=== PATIENT | female | born 1945 | race Caucasian/White ===

== ENCOUNTER 2016-08-30 10:46 | Emergency (ER) | payer OTHER ==
[~2016-08-30] VITALS: Ht 152.4 cm; Wt 120.2 kg
[~2016-08-30 10:46] MED LIST changes: -ACET-24 PO; -ALBUAER INH; -ASPEC81 PO; -CLOBETASOL TOP; -CMD1 PO; -CMD2 PO; -CRDCD120 PO; -CYNI1000 INJ; -FEXO1TAB49 PO; -FLUT0.15 NAE; -FLVHFA44 INH; -FRRS300 PO; -FURO-85 PO; -GFNSR600 PO; -HYDR5SYP11 PO; -INSDGIPEN SC; -INSU1.2I SC; -INSU1.2I SQ; -LEVO-18 PO; -LEVO175T PO; -MCRK20 PO; -METR0.754 TOP; -NVLG SQ; -POLY150C4 PO; -PRED20TA PO; -RXC5 PO; -SUCR1TAB29 PO; -TOLT4CAP PO; -TRMO115 TOP; -[UNRECOGNIZED DRUG - OTHER] PO
[2016-08-30 10:57] VITALS: TEMP 36.6; Ht 152.4 cm; Wt 120.2 kg
[2016-08-30] MEDS ORDERED: TOLT4CAP PO (11:38)
[2016-08-30] MEDS ORDERED: ASPEC81 PO (11:38)
[2016-08-30] MEDS ORDERED: CYNI1000 INJ (11:38)
[2016-08-30] MEDS ORDERED: LEVO175T PO (11:38)
[2016-08-30] MEDS ORDERED: INSDGI SC (11:38)
[2016-08-30] MEDS ORDERED: FEXO1TAB49 PO (11:38)
[2016-08-30] MEDS ORDERED: SUCR1TAB29 PO (11:38)
[2016-08-30] MEDS ORDERED: NVLG SQ (11:38)
[2016-08-30] MEDS ORDERED: POLY150C4 PO (11:38)
[2016-08-30] MEDS ORDERED: CMD2 PO (11:38)
[2016-08-30] MEDS ORDERED: FLVHFA44 INH (11:38)
[2016-08-30] MEDS ORDERED: ALBUAER INH (11:38)
[2016-08-30] MEDS ORDERED: CMD1 PO (11:38)
[2016-08-30] MEDS ORDERED: FLUT0.15 NAE (11:38)
[2016-08-30 11:47] VITALS: BP 168/90
--- NOTE | 2016-08-30 11:59 | EMERGENCY ROOM VISIT NOTE ---
History Report prepared by Jacob: Parisa Yoon Under the Supervision of: Dr. Dinesh Whatley D.O. First contact with patient: 11:42 Chief Complaint: HYPERTENSION Stated Complaint: ELEVATED BP 206/109 History of Present Illness The patient is a 71 year old female who presents to the Emergency Room with complaints of persistent elevated blood pressure that began today. She notes that her blood pressure was 206/109. The patient states that she was having a carotid artery ultrasound today. She states that while there is when they found to have an elevated blood pressure. The patient states that her blood pressure was 139/79 last evening. She denies any headaches, chest pain, or shortness of breath and notes that she felt normal today. The patient states that she called her PCP's office and was instructed to come to the emergency department for further work up. She states that she has a history of a carotid artery surgery. Source of History: patient Onset: today Position: other (global) Symptom Intensity: 206/109 Quality: other (elevated blood pressure) Timing: other (persistent) Associated Symptoms: No SOB, No chest pain, No headache Review of Systems See HPI for pertinent positives & negatives. A total of 10 systems reviewed and were otherwise negative. Past Medical & Surgical Medical Problems: (1) Asthma (2) Diabetes (3) Heart disease Surgical Problems: (1) S/P CABG (coronary artery bypass graft) Family History Heart disease Social History Smoking Status: Never Smoker Smokeless Tobacco Use: No Alcohol Use: none Marital Status: Housing Status: lives with significant other Occupation Status: retired Current/Historical Medications Scheduled Aspirin (Aspirin EC Low Dose), 81 MG PO DAILY Cyanocobalamin (Cyanocobalamin), 1,000 MCG INJ MONTHLY Ezetimibe (Zetia), 10 MG PO HS Fexofenadine Hcl (Abby Allergy), 180 MG PO DAILY Fluticasone Propionate (Flovent Hfa), Unknown Dose INH BID Insulin Aspart (Novolog), UNITS SQ AC Insulin Glargine (Lantus), 52 UNIT SC QPM Levothyroxine Sodium (Synthroid), 175 MCG PO DAILY Metoprolol Succ (Toprol Xl) (Toprol-Xl ), 100 MG PO BID Polysaccharide Iron Complex (Ferrex 150), 150 MG PO DAILY Ranitidine (Zantac), 300 MG PO HS Simvastatin (Zocor), 80 MG PO QPM Tolterodine Tartrate (Detrol La), 4 MG PO DAILY Warfarin Sod (Coumadin), 1 MG PO 6XWK Warfarin Sod (Coumadin), 2 MG PO WK Scheduled PRN Albuterol Sulfate (Proventil Hfa), 2 PUFF INH Q6 PRN for SOB/Wheezing Fluticasone Propionate (Nasal) (Flonase Allergy Relief), 1 SPRAY REBEKAH DAILY PRN for ALLERGIES Miscellaneous Medications Sucralfate (Carafate), 1 GM PO Allergies Coded Allergies: Iodine (Verified Allergy, Mild, TROUBLE BREATHING OK WITH PRE-MEDICATION , 08/30/16) Sulfa Antibiotics (Verified Allergy, Unknown, i swell up, 08/30/16) Physical Exam Vital Signs Date Time Temp Pulse Resp B/P Pulse Ox O2 Delivery O2 Flow Rate FiO2 08/30/16 11:47 168/90 08/30/16 10:57 36.6 101 18 156/76 93 Room Air Physical Exam CONSTITUTIONAL/VITAL SIGNS: Reviewed / noted above. GENERAL: Non-toxic in appearance. INTEGUMENTARY: Warm, dry, and [place]. HEAD: Normocephalic. EYES: without scleral icterus or trauma. ENT/OROPHARYNX: clear and moist. LYMPHADENOPATHY/NECK: Is supple without lymphadenopathy or meningismus. RESPIRATORY: Lungs clear and equal. CARDIOVASCULAR: Regular rate and rhythm. GI/ABDOMEN: Soft and nontender. No organomegaly or pulsatile mass. No rebound or guarding. Normal bowel sounds. EXTREMITIES: Warm and well perfused. BACK: No CVA tenderness. NEUROLOGICAL: Intact without focal deficits. PSYCHIATRIC: normal affect. MUSCULOSKELETAL: Normally developed with good muscle tone. Medical Decision & Procedures ED Course 1147: Previous medical records were reviewed. The patient was evaluated in room B8. A complete history and physical examination was performed. I rechecked the patient's blood pressure and it was normal. I discussed the treatment plan and she verbalized complete understanding and agreement. She is ready to go home. Medical Decision Differential diagnosis: Etiologies such as benign hypertension, hypertensive emergency, cardiovascular pathology, pheochromocytoma, electrolyte abnormality, renal disease, endorgan damage, as well as others were entertained. This is a 71-year-old female who presents to the ED with a chief complaint of hypertension. The patient states that she had an outpatient carotid artery ultrasound today. They checked her blood pressure and told her it was 200/100. She was sent to the ED for evaluation. The patient denies any symptoms. She states that she is feeling fine. Her initial triage blood pressure here was 156 /76. It was rechecked and appears to be stable. The patient denies having any headaches, chest pains or shortness of breath. She denies any focal weakness. After exam and evaluation, the patient is felt to be stable for discharge and outpatient follow-up and recheck of her blood pressure as an outpatient. The patient did state that she checked her own blood pressure last night at home and it was 139/79. Impression Primary Impression: Hypertension Scribe Attestation The scribe's documentation has been prepared under my direction and personally reviewed by me in its entirety. I confirm that the note above accurately reflects all work, treatment, procedures, and medical decision making performed by me. Departure Information Dispostion Home / Self-Care Referrals Chris Queen M.D. (PCP) Patient Instructions My [facility] Additional Instructions Have your blood pressure rechecked at your doctor's office or you may do so at home and notify your doctor if it is elevated. Return for any concerns.
[2016-08-30 12:15] VITALS: PULSE 73; O2SAT 94
[2017-04-30] MEDS ORDERED: INSU1.2I SQ (08:56)
[2017-04-30] MEDS ORDERED: FRRS300 PO (08:56)
[2017-04-30] MEDS ORDERED: [UNRECOGNIZED DRUG - OTHER] PO (08:56)
[2017-04-30] MEDS ORDERED: TRMO115 TOP (08:59)
[2017-04-30] MEDS ORDERED: CLOBETASOL TOP (08:59)
[2017-04-30] MEDS ORDERED: FURO-85 PO (08:59)
[2017-04-30] MEDS ORDERED: METR0.754 TOP (08:59)
[2017-05-10] MEDS ORDERED: RXC5 PO (21:36)
[2017-05-10] MEDS ORDERED: ACET-24 PO (21:36)
== END 2016-08-30 12:14 | disposition home or self-care (01) ==
LOC: C.EDB 10:47
DX: I10 Essential (primary) hypertension (principal); E11.9 Type 2 diabetes mellitus without complications; Z79.4 Long term (current) use of insulin; J45.909 Unspecified asthma, uncomplicated; Z95.1 Presence of aortocoronary bypass graft; Z82.49 Family history of ischemic heart disease and other diseases of the circulatory system; Z79.82 Long term (current) use of aspirin; Z79.01 Long term (current) use of anticoagulants; I65.29 Occlusion and stenosis of unspecified carotid artery

== ENCOUNTER → 2016-08-30 | Outpatient (CLI) | payer OTHER ==
[~2016-08-30] MED LIST: ACET-24 PO; ALBU1AER9; ALBUAER INH; ALLGUNK; ASPEC325 PO; ASPEC81 PO; CLC6 PO; CLOBETASOL TOP; CMD1 PO; CMD2 PO; CRDCD120 PO; CRF1 PO; CYAN3INJ INJ; CYNI1000 INJ; EZET10TA63 PO; FEXO1TAB49 PO; FLNIN NAE; FLUT0.15 NAE; FLVHFA44 INH; FLVHFAUNK; FRRS300 PO; FURO-85 PO; GFNSR600 PO; HYDR5SYP11 PO; INSDGI SC; INSDGIPEN SC; INSU1.2I SC; INSU1.2I SQ; LEVO-18 PO; LEVO175T PO; MCRK20 PO; METO1TAB69 PO; METR0.754 TOP; MTRUNK; NVLG SQ; NVLGI SC; POLY150C4 PO; PRED20TA PO; RXC5 PO; SIMV80TA2 PO; SUCR1TAB29 PO; SYN200 PO; TOLT4CAP PO; TRMO115 TOP; TYLUNK; ZNTT/150 PO; [UNRECOGNIZED DRUG - OTHER] PO
--- NOTE | 2016-08-30 10:46 | DIAGNOSTIC IMAGING REPORT ---
ULTRASOUND OF THE CAROTID ARTERIES CLINICAL HISTORY: Carotid artery plaque. COMPARISON STUDY: 07/23/2015. TECHNIQUE: Real-time, grayscale, and color Doppler sonography of the carotid arteries was performed. Imaging reviewed in the transverse and longitudinal planes. NASCET criteria was utilized for stenosis calcification. FINDINGS: There is minor atherosclerotic plaque present . The peak systolic velocity within the right internal carotid artery is 92 cm/sec. The systolic velocity ratio of right internal to common carotid artery is 1.2. The peak systolic velocity within the left internal carotid artery is 90 cm/sec. The systolic velocity ratio left internal to common carotid artery is 1.2. Antegrade flow is seen in the vertebral arteries. The external carotid arteries are patent. Blood pressure in the right arm measured 206 mm/Hg. Blood pressure in the left arm measured 205 mm/Hg. IMPRESSION: 1. No evidence of hemodynamically significant carotid stenosis 2. Systemic hypertension Electronically signed by: Gino Calle M.D. 08/30/2016 10:44 AM Dictated Date/Time: 08/30/2016 10:43 AM
== END | disposition home or self-care (01) ==
LOC: C.ULTR 09:28
PROVIDERS: ATTEND Surgery
DX: I65.29 Occlusion and stenosis of unspecified carotid artery (principal); I10 Essential (primary) hypertension

== ENCOUNTER → 2016-10-17 | Outpatient (CLI) | payer OTHER ==
[~2016-10-17] MED LIST changes: +ACET-24 PO; -ALBU1AER9; +ALBUAER INH; -ALLGUNK; -ASPEC325 PO; +ASPEC81 PO; -CLC6 PO; +CLOBETASOL TOP; +CMD1 PO; +CMD2 PO; +CRDCD120 PO; -CRF1 PO; -CYAN3INJ INJ; +CYNI1000 INJ; +FEXO1TAB49 PO; -FLNIN NAE; +FLUT0.15 NAE; +FLVHFA44 INH; -FLVHFAUNK; +FRRS300 PO; +FURO-85 PO; +GFNSR600 PO; +HYDR5SYP11 PO; +INSDGIPEN SC; +INSU1.2I SC; +INSU1.2I SQ; +LEVO-18 PO; +LEVO175T PO; +MCRK20 PO; +METR0.754 TOP; -MTRUNK; +NVLG SQ; -NVLGI SC; +POLY150C4 PO; +PRED20TA PO; +RXC5 PO; +SUCR1TAB29 PO; -SYN200 PO; +TOLT4CAP PO; +TRMO115 TOP; -TYLUNK; +[UNRECOGNIZED DRUG - OTHER] PO
--- NOTE | 2016-10-17 10:08 | DIAGNOSTIC IMAGING REPORT ---
CHEST 2 VIEWS ROUTINE CLINICAL HISTORY: R05 [id number] COMPARISON STUDY: No previous studies for comparison. FINDINGS: The heart is enlarged. There are postsurgical changes of a midline sternotomy. There is no failure. There is no focal pulmonary consolidation. There is an age-indeterminate left sixth rib fracture. There is no pneumothorax.[ IMPRESSION: 1. Cardiomegaly 2. Age-indeterminate left sixth rib fracture 3. No evidence of focal pulmonary consolidation. Electronically signed by: Gino Calle M.D. 10/17/2016 10:07 AM Dictated Date/Time: 10/17/2016 10:03 AM
== END | disposition home or self-care (01) ==
LOC: C.RAD 09:26
PROVIDERS: ATTEND Internal Medicine
DX: R05 Cough (principal); I51.7 Cardiomegaly

== ENCOUNTER 2016-10-23 12:33 | Inpatient (IN) | payer OTHER ==
[~2016-10-23] VITALS: Ht 152.4 cm; Wt 112.1 kg
[~2016-10-23 12:33] MED LIST changes: -ACET-24 PO; -CLOBETASOL TOP; -CRDCD120 PO; -FRRS300 PO; -FURO-85 PO; -GFNSR600 PO; -HYDR5SYP11 PO; -INSDGIPEN SC; -INSU1.2I SC; -INSU1.2I SQ; -LEVO-18 PO; -MCRK20 PO; -METR0.754 TOP; -PRED20TA PO; -RXC5 PO; -TRMO115 TOP; -[UNRECOGNIZED DRUG - OTHER] PO
[2016-10-23] MEDS ORDERED: LEVO-18 PO (13:08)
[2016-10-23] MEDS ORDERED: INSU1.2I SC (13:08)
[2016-10-23] MEDS ORDERED: PRED20TA PO (13:12)
[2016-10-23] MEDS ORDERED: HYDR5SYP11 PO (13:12)
[2016-10-23] MEDS ORDERED: METHYLPREDNISOLONE 125 MG VIAL IV STA (13:22)
[2016-10-23] MEDS ORDERED: ALBUT/IPRATROP 3MG/0.5MG NEB 3 ML VIAL INH STA (13:22)
[2016-10-23 13:32] LABS: BASO ABS # 0.01 K/uL (0-0.2); EOS % 0.6 %; HEMATOCRIT 31.6 % (37-47); IG% 0.6 %; LYMPH % 20.6 %; MEAN CELL VOLUME 67.5 fL (80-100); MEAN CORPUSCULAR HEMOGLOBIN 19.7 pg (25-34); MEAN CORPUSCULAR HGB CONC 29.1 g/dl (32-36); MEAN PLATELET VOLUME 9.3 fL (7.4-10.4); MONO % 10.1 %; NEUT % 68.1 %; PLATELET COUNT 310 K/uL (130-400); RED BLOOD COUNT 4.68 M/uL (4.2-5.4); WHITE BLOOD COUNT 20.88 K/uL (4.8-10.8)
--- NOTE | 2016-10-23 13:42 | DIAGNOSTIC IMAGING REPORT ---
CHEST ONE VIEW PORTABLE CLINICAL HISTORY: EVALUATE RESPIRATORY DISTRESS. DYSPNEA dyspnea COMPARISON STUDY: 10/17/2016 FINDINGS: Mild cardiomegaly. Prior median sternotomy. Prominent pulmonary vasculature. IMPRESSION: Early congestive failure Electronically signed by: Reggie Álvarez M.D. 10/23/2016 1:41 PM Dictated Date/Time: 10/23/2016 1:40 PM
[2016-10-23 13:45] LABS: INR 1.5 (0.9-1.1); PARTIAL THROMBOPLASTIN RATIO 0.9; PROTHROMBIN TIME (PATIENT) 16.1 SECONDS (9.0-12.0)
[2016-10-23 13:56] LABS: ALT/SGPT 35 U/L (12-78); BLOOD UREA NITROGEN 13 mg/dl (7-18); BUN/CREATININE RATIO 24.4 (10-20); CALCIUM 8.6 mg/dl (8.5-10.1); CARBON DIOXIDE 29 mmol/L (21-32); CHLORIDE 108 mmol/L (98-107); CREATININE 0.52 mg/dl (0.60-1.20); GLUCOSE 62 mg/dl (70-99); POTASSIUM 3.5 mmol/L (3.5-5.1); SODIUM 144 mmol/L (136-145)
[2016-10-23 14:01] LABS: ALB/GLOB RATIO 0.8 (0.9-2); ALKALINE PHOSPHATASE 71 U/L (45-117); AST/SGOT 29 U/L (15-37); CKMB/CK RATIO 1.6 (0-3.0)
[2016-10-23 14:20] LABS: ANISOCYTOSIS PRESENT; COMPLETE YES; HYPOCHROMIA PRESENT; MICROCYTOSIS PRESENT; POIKILOCYTOSIS PRESENT; TARGET CELLS 1+
[2016-10-23] MEDS ORDERED: FLUTICASONE PROPIONATE NA SPR 16 GM BTL NAE PRN (16:15)
[2016-10-23] MEDS ORDERED: GLUCOSE 10 TABS/TUBE PO PRN (16:15)
[2016-10-23] MEDS ORDERED: NITROGLYCERIN 0.4 MG SL PER TAB CHARGE SL PRN (16:15)
[2016-10-23] MEDS ORDERED: LEVALBUTEROL/IPRATROPIUM NEB INH PRN (16:15)
[2016-10-23] MEDS ORDERED: DEXTROSE 50% 50 ML SYR IV PRN (16:15)
[2016-10-23] MEDS ORDERED: ACETAMINOPHEN 325 MG TAB PO PRN (16:15)
[2016-10-23] MEDS ORDERED: ZOLPIDEM TARTRATE 5 MG TAB PO PRN (16:15)
[2016-10-23] MEDS ORDERED: GLUCAGON FOR INJ 1 MG VIAL SQ PRN (16:15)
[2016-10-23] MEDS ORDERED: ONDANSETRON INJ 2 MG/ML 2 ML VIAL IV PRN (16:15)
[2016-10-23] MEDS ORDERED: GLUCOSE 40% GEL 15 GM TUBE PO PRN (16:15)
[2016-10-23] MEDS ORDERED: HYDROCODONE/HOMATROPINE SYRUP 5MG/1.5MG 5ML UDP PO PRN (16:15)
[2016-10-23] MEDS ORDERED: POTASSIUM CHLORIDE 10 MEQ TABCR PO STA (16:24)
[2016-10-23 16:54] VITALS: O2SAT 96; BMI 52.3
[2016-10-23 17:02] LABS: URINE APPEARANCE CLEAR (CLEAR); URINE BILIRUBIN NEG (NEG); URINE COLOR YELLOW; URINE NITRITE NEG (NEG); URINE SPECIFIC GRAVITY 1.013 (1.000-1.030); UROBILINOGEN POS (NEG)
[2016-10-23 17:06] LABS: MANUAL MICROSCOPIC REQUIRED? NO; REVIEW REQ? NO
[2016-10-23] MEDS ORDERED: LEVALBUTEROL 1.25MG/0.5ML NEB INH PRN (18:15)
[2016-10-23] MEDS ORDERED: IPRATROPIUM BROMIDE NEB SOLN 0.02% 2.5 ML VIAL INH PRN (18:15)
[2016-10-23 18:47] VITALS: BP 164/88; PULSE 102; O2SAT 95
[2016-10-23] MEDS ORDERED: ALBUMIN 25% 50 ML with FUROSEMIDE INJ 40 MG IV ONE ×2 (19:00)
[2016-10-23 19:27] VITALS: BP 181/109; PULSE 107; TEMP 37.2; O2SAT 92
[2016-10-23] MEDS: WARFARIN SOD 2 MG TAB PO SCH (20:03)
[2016-10-23] MEDS: RANITIDINE HCL 150 MG TAB PO SCH (20:04)
[2016-10-23] MEDS: SIMVASTATIN 80 MG TAB PO SCH (20:04)
[2016-10-23] MEDS: POTASSIUM CHLORIDE 10 MEQ TABCR PO SCH (20:05)
[2016-10-23] MEDS: EZETIMIBE 10MG TAB PO SCH (20:05)
[2016-10-23] MEDS: METOPROLOL SUCC 50MG EXT REL TAB PO SCH (20:09)
[2016-10-23] MEDS: INSULIN ASPART 100 UNITS/ML 3 ML PEN SC SCH (20:13)
[2016-10-23] MEDS: INSULIN GLARGINE SOLOSTAR 100 UNITS/ML 3 ML PEN SC SCH (20:14)
[2016-10-23] MEDS ORDERED: NURSING VERBAL MED ORDER ONE (20:45)
[2016-10-23] MEDS ORDERED: SUCRALFATE 1 GM TAB PO PRN (21:00)
[2016-10-23 21:15] VITALS: BP 161/97
--- NOTE | 2016-10-23 21:19 | EMERGENCY ROOM VISIT NOTE ---
History Report prepared by Jacob: Barbara Paetl Under the Supervision of: Dr. Carter Kuhn M.D. First contact with patient: 13:11 Chief Complaint: RESPIRATORY PROBLEMS Stated Complaint: BREATHING PROBLEMS, COUGHING, SWELLED LEGS Nursing Triage Summary: Patients states has had cold symptoms for the last 3 weeks, took antibiotics with only a little relief. Patient states productive cough with clear sputum. Denies nasal congestion, N/V/D. Patient states noticed BLE swelling Sunday of last week. Ecchymotic area noted to patients LLQ abdomen. History of Present Illness The patient is a 71 year old female who presents to the Emergency Room with complaints of worsening cold-like symptoms that began 3 weeks ago. The patient states that she has chest congestion, a productive cough, and bilateral foot swelling. The swelling in her lower legs that began about 4 days ago. She has never had leg swelling in the past. She is not on fluid pills. Currently she also complains of a large bruise to the left side of her abdomen that has been worsening. She is on Coumadin - her most recent INR was 2.2. She has been to her PCP a few times regarding her symptoms. The patient had a chest x-ray in Dr. Queen's office 6 days ago. She notes that she has been on antibiotics, Prednisone, and cough syrup with codeine. She felt that the Prednisone along with her inhaler and nebulizer treatments have helped her symptoms somewhat. Past medical history includes asthma, a-fib, heart disease. She has a history of a double bypass. Pt denies LOC, headache, fevers, chills, diaphoresis, visual changes, neck pain, nausea, vomiting, abdominal pain, back pain, melena, hematochezia, urinary symptoms, numbness, weakness, lymphadenopathy, rash, or other complaints. Source of History: patient Onset: 3 weeks ago Position: other (global) Quality: other (cold-like symptoms) Timing: worsening Associated Symptoms: + cough Note: Other symptoms: chest congestion, leg swelling, bruise to left flank/abdomen Review of Systems See HPI for pertinent positives and negatives. A total of ten systems were reviewed and were otherwise negative. Past Medical & Surgical Medical Problems: (1) Asthma (2) Atrial fibrillation (3) CHF exacerbation (4) Diabetes (5) Heart disease Surgical Problems: (1) H/O percutaneous transluminal coronary angioplasty (2) S/P CABG (coronary artery bypass graft) (3) S/P CABG (coronary artery bypass graft) Family History Heart disease Social History Smoking Status: Never Smoker Alcohol Use: none Marital Status: Housing Status: lives with significant other Occupation Status: retired Current/Historical Medications Scheduled Aspirin (Aspirin EC Low Dose), 81 MG PO DAILY Cyanocobalamin (Cyanocobalamin), 1,000 MCG INJ MONTHLY Ezetimibe (Zetia), 10 MG PO HS Fexofenadine Hcl (Abby Allergy), 180 MG PO DAILY Fluticasone Propionate (Flovent Hfa), Unknown Dose INH BID Hydrocodone W/ Homatropine (Hycodan 5/1.5MG 5 Ml), 5 ML PO Q4H Insulin Aspart (Novolog), UNITS SQ AC Insulin Glargine (Toujeo Solostar), 42 UNITS SC QPM Levofloxacin (Levaquin), 750 MG PO DAILY Levothyroxine Sodium (Synthroid), 175 MCG PO DAILY Metoprolol Succ (Toprol Xl) (Toprol-Xl ), 100 MG PO BID Polysaccharide Iron Complex (Ferrex 150), 150 MG PO DAILY Prednisone (Prednisone), 20 MG PO UD Ranitidine (Zantac), 300 MG PO HS Simvastatin (Zocor), 80 MG PO QPM Sucralfate (Carafate), 1 GM PO PRN Tolterodine Tartrate (Detrol La), 4 MG PO DAILY Warfarin Sod (Coumadin), 1 MG PO 6XWK Warfarin Sod (Coumadin), 2 MG PO WK Scheduled PRN Albuterol Sulfate (Proventil Hfa), 2 PUFF INH Q6 PRN for SOB/Wheezing Fluticasone Propionate (Nasal) (Flonase Allergy Relief), 1 SPRAY REBEKAH DAILY PRN for ALLERGIES Allergies Coded Allergies: Iodine (Verified Allergy, Mild, TROUBLE BREATHING OK WITH PRE-MEDICATION , 08/30/16) Sulfa Antibiotics (Verified Allergy, Unknown, i swell up, 08/30/16) Physical Exam Vital Signs Date Time Temp Pulse Resp B/P Pulse Ox O2 Delivery O2 Flow Rate FiO2 10/23/16 14:35 93 22 156/89 96 Room Air 10/23/16 14:06 96 Room Air 10/23/16 12:54 96 10/23/16 12:51 96 Room Air 10/23/16 12:43 96 Room Air 10/23/16 12:35 36.7 76 22 139/75 98 Physical Exam GENERAL: Awake, alert, tired-appearing, in no distress, hoarse voice. HENT: Normocephalic, atraumatic. Oropharynx unremarkable. EYES: Normal conjunctiva. Sclera non-icteric. NECK: Supple. No nuchal rigidity. FROM. No JVD. RESPIRATORY: Clear to auscultation. CARDIAC: Regular rate, irregular rhythm. Extremities warm and well perfused. Pulses equal. ABDOMEN: Soft, non-distended. No tenderness to palpation. No rebound or guarding. No masses. RECTAL: Deferred. MUSCULOSKELETAL: Chest examination reveals no tenderness. The back is symmetrical on inspection without obvious abnormality. There is no CVA tenderness to palpation. No joint edema. LOWER EXTREMITIES: Calves are equal size bilaterally and non-tender. 2-3+ lower extremity pitting edema. No discoloration. NEURO: Normal sensorium. No sensory or motor deficits noted. SKIN: No rash or jaundice noted. Large area of bruising on the left flank and across the lower abdomen. Medical Decision & Procedures ER Provider Diagnostic Interpretation: Radiology results as stated below per my review and radiologist interpretation: CHEST ONE VIEW PORTABLE CLINICAL HISTORY: EVALUATE RESPIRATORY DISTRESS. DYSPNEA dyspnea COMPARISON STUDY: 10/17/2016 FINDINGS: Mild cardiomegaly. Prior median sternotomy. Prominent pulmonary vasculature. IMPRESSION: Early congestive failure Electronically signed by: Reggie Álvarez M.D. 10/23/2016 1:41 PM Dictated Date/Time: 10/23/2016 1:40 PM Laboratory Results 10/23/16 13:22 Red Blood Count 4.68, Mean Corpuscular Volume 67.5, Mean Corpuscular Hemoglobin 19.7, Mean Corpuscular Hemoglobin Concent 29.1, Mean Platelet Volume 9.3, Neutrophils (%) (Auto) 68.1, Lymphocytes (%) (Auto) 20.6, Monocytes (%) (Auto) 10.1, Eosinophils (%) (Auto) 0.6, Basophils (%) (Auto) 0.0, Neutrophils # (Auto ) 14.23, Lymphocytes # (Auto) 4.30, Monocytes # (Auto) 2.10, Eosinophils # (Auto ) 0.12, Basophils # (Auto) 0.01 10/23/16 13:22 Test 10/23/16 13:22 White Blood Count 20.88 K/uL (4.8-10.8) Red Blood Count 4.68 M/uL (4.2-5.4) Hemoglobin 9.2 g/dL (12.0-16.0) Hematocrit 31.6 % (37-47) Mean Corpuscular Volume 67.5 fL (80-100) Mean Corpuscular Hemoglobin 19.7 pg (25-34) Mean Corpuscular Hemoglobin Concent 29.1 g/dl (32-36) Platelet Count 310 K/uL (130-400) Mean Platelet Volume 9.3 fL (7.4-10.4) Neutrophils (%) (Auto) 68.1 % Lymphocytes (%) (Auto) 20.6 % Monocytes (%) (Auto) 10.1 % Eosinophils (%) (Auto) 0.6 % Basophils (%) (Auto) 0.0 % Neutrophils # (Auto) 14.23 K/uL (1.4-6.5) Lymphocytes # (Auto) 4.30 K/uL (1.2-3.4) Monocytes # (Auto) 2.10 K/uL (0.11-0.59) Eosinophils # (Auto) 0.12 K/uL (0-0.5) Basophils # (Auto) 0.01 K/uL (0-0.2) RDW Standard Deviation 53.6 fL (36.4-46.3) RDW Coefficient of Variation 22.5 % (11.5-14.5) Immature Granulocyte % (Auto) 0.6 % Immature Granulocyte # (Auto) 0.12 K/uL (0.00-0.02) Nucleated RBC Absolute Count (auto) 0.14 K/uL (0-0) Nucleated Red Blood Cells % 0.7 % Hypochromasia PRESENT Poikilocytosis PRESENT Anisocytosis PRESENT Microcytosis PRESENT Target Cells 1+ Prothrombin Time 16.1 SECONDS (9.0-12.0) Prothromb Time International Ratio 1.5 (0.9-1.1) Activated Partial Thromboplast Time 24.0 SECONDS (21.0-31.0) Partial Thromboplastin Ratio 0.9 Anion Gap 7.0 mmol/L (3-11) Est Creatinine Clear Calc Drug Dose 119.2 ml/min Estimated GFR () 112.2 Estimated GFR (Non- 96.8 BUN/Creatinine Ratio 24.4 (10-20) Calcium Level 8.6 mg/dl (8.5-10.1) Total Bilirubin 1.0 mg/dl (0.2-1) Aspartate Amino Transf (AST/SGOT) 29 U/L (15-37) Alanine Aminotransferase (ALT/SGPT) 35 U/L (12-78) Alkaline Phosphatase 71 U/L (45-117) Total Creatine Kinase 62 U/L (26-192) Creatine Kinase MB 1.0 ng/ml (0.5-3.6) Creatine Kinase MB Ratio 1.6 (0-3.0) Troponin I < 0.015 ng/ml (0-0.045) Pro-B-Type Natriuretic Peptide 1065 pg/ml (0-900) Total Protein 5.6 gm/dl (6.4-8.2) Albumin 2.5 gm/dl (3.4-5.0) Globulin 3.1 gm/dl (2.5-4.0) Albumin/Globulin Ratio 0.8 (0.9-2) Hepatitis C Antibody Screen NEG (NEG) Laboratory results reviewed by me Medications Administered Medications (Trade) Dose Ordered Sig/Jonathon Route Start Time Stop Time Status Last Admin Dose Admin Albuterol/ Ipratropium (Duoneb) 3 ml NOW STAT INH 10/23/16 13:22 10/23/16 13:24 DC 10/23/16 14:04 3 ML Methylprednisolone Sodium Succinate (Solu-Medrol IV) 125 mg NOW STAT IV 10/23/16 13:22 10/23/16 13:24 DC 10/23/16 14:04 125 MG Potassium Chloride (Klor-Con M10) 40 meq NOW STAT PO 10/23/16 16:24 10/23/16 16:59 DC 10/23/16 17:55 40 MEQ ECG Indication: other (chest congestion) Rate (beats per minute): 88 Rhythm: atrial fibrillation Findings: nonspecific-ST abn, RBBB (incomplete), no acute ischemic change Comparison ECG Date: no prior available ED Course 1319: The patient was evaluated in room B6. A complete history and physical exam was performed. 1322: Ordered Methylprednisolone Sodium Succinate 125 mg IV, DuoNeb 3 ml INH. 1525: Upon reexamination, the patient was feeling better. I discussed the test results and treatment plan with her. The patient will be evaluated for further management. 1549: I discussed the case with Dr. Jaylyn ROSADO Hospitalist. The patient will be evaluated for further management. 1600: Ordered Furosemide 40 mg/Albumin Human 54 ml @ 54 mls/hr IV. Medical Decision Prior records/ancillary studies reviewed. Triage Nursing notes reviewed and agree them. Additional history obtained from the family. The patient's history was concerning for shortness of breath. Differential diagnosis: Etiologies such as Pneumonia, COPD, reactive airway disease, CHF, cardiac ischemia, pulmonary embolism, pneumothorax, musculoskeletal, infections, gastrointestinal, as well as others were entertained. Physical examination: As above. ER treatment provided: Solu-Medrol DuoNeb On reassessment the patient felt somewhat better. Diagnostic interpretation by me: The electrocardiogram was negative for pathologic change. The labs revealed a moderate leukocytosis on CBC. The patient is currently on prednisone. She had an elevated BNP concerning for CHF. Catheter panel is unremarkable. Troponin negative. Imaging studies: Chest x-ray as above. Concerning for CHF. The patient has had upper respiratory symptoms but appears that she now has new- onset CHF. This will need further evaluation and management in the hospital. Consultation: A consultation was placed with the hospitalist. The case was discussed and diagnostics were reviewed. The patient was evaluated in the ER for further treatment. The chart was completed utilizing [employer] Speech voice recognition software. Grammatical errors, random word insertions, pronoun errors, and incomplete sentences are an occasional consequence of this system due to software limitations, ambient noise, and hardware issues. Any formal questions or concerns about the content, text, or information contained within the body of this dictation should be directly addressed to the physician for clarification. Consults Time Called: 1528 Consulting Physician: Dr. Jaylyn ROSADO Hospitalist Returned Call: 1549 I discussed the case with him. The patient will be evaluated for further management. Impression Primary Impression: Acute CHF Additional Impression: Cough Scribe Attestation The scribe's documentation has been prepared under my direction and personally reviewed by me in its entirety. I confirm that the note above accurately reflects all work, treatment, procedures, and medical decision making performed by me. Departure Information Dispostion Being Evaluated By Hospitalist Referrals Chris Queen M.D. (PCP) Patient Instructions My [facility] Problem Qualifiers
--- NOTE | 2016-10-23 22:45 | History and Physical ---
History & Physical Date & Time of Service: Oct 23, 2016 at 22:29 Chief Complaint: Atrial Fibrillation, Chf Exacerbation Primary Care Physician: Chris Queen M.D. History of Present Illness Source: patient, spouse The patient is a 71-year-old female presents emergency department with worsening swelling of bilateral lower extremities with past 4 days. Her symptoms initially began about 3 weeks ago when she had what she thought was a cold, with chest congestion, productive cough and some foot swelling at that time. She's never had leg swelling until now. She was initially treated with antibiotics, prednisone, and inhaler, nebulizer treatments and a cough syrup with codeine. Past Medical/Surgical History Medical Problems: (1) Asthma Status: Chronic (2) Atrial fibrillation Status: Chronic (3) Diabetes Status: Chronic (4) Heart disease Status: Chronic Surgical Problems: (1) H/O percutaneous transluminal coronary angioplasty Status: Resolved (2) S/P CABG (coronary artery bypass graft) Status: Resolved (3) S/P CABG (coronary artery bypass graft) Status: Resolved Family History Heart disease Social History Smoking Status: Never Smoker Smokeless Tobacco Use: No Alcohol Use: none Drug Use: none Marital Status: Housing status: lives with family Occupational Status: retired Immunizations History of Influenza Vaccine: Yes Influenza Vaccine Date: Apr 24, 2011 History of Tetanus Vaccine?: Yes Tetanus Immunization Date: Aug 24, 2009 History of Pneumococcal: Yes Pneumococcal Date: Apr 24, 2010 History of Hepatitis B Vaccine: No Multi-Drug Resistant Organisms History of MDRO: No Allergies Coded Allergies: Iodine (Verified Allergy, Mild, TROUBLE BREATHING OK WITH PRE-MEDICATION , 08/30/16) Sulfa Antibiotics (Verified Allergy, Unknown, i swell up, 08/30/16) Home Medications Scheduled Aspirin (Aspirin EC Low Dose), 81 MG PO DAILY Cyanocobalamin (Cyanocobalamin), 1,000 MCG INJ MONTHLY Ezetimibe (Zetia), 10 MG PO HS Fexofenadine Hcl (Abby Allergy), 180 MG PO DAILY Fluticasone Propionate (Flovent Hfa), Unknown Dose INH BID Hydrocodone W/ Homatropine (Hycodan 5/1.5MG 5 Ml), 5 ML PO Q4H Insulin Aspart (Novolog), UNITS SQ AC Insulin Glargine (Toujeo Solostar), 42 UNITS SC QPM Levofloxacin (Levaquin), 750 MG PO DAILY Levothyroxine Sodium (Synthroid), 175 MCG PO DAILY Metoprolol Succ (Toprol Xl) (Toprol-Xl ), 100 MG PO BID Polysaccharide Iron Complex (Ferrex 150), 150 MG PO DAILY Prednisone (Prednisone), 20 MG PO UD Ranitidine (Zantac), 300 MG PO HS Simvastatin (Zocor), 80 MG PO QPM Sucralfate (Carafate), 1 GM PO PRN Tolterodine Tartrate (Detrol La), 4 MG PO DAILY Warfarin Sod (Coumadin), 1 MG PO 6XWK Warfarin Sod (Coumadin), 2 MG PO WK Scheduled PRN Albuterol Sulfate (Proventil Hfa), 2 PUFF INH Q6 PRN for SOB/Wheezing Fluticasone Propionate (Nasal) (Flonase Allergy Relief), 1 SPRAY REBEKAH DAILY PRN for ALLERGIES Review of Systems The patient denies vision change, hearing change, sore throat, fevers, chills, sweats, weight change, fatigue, nausea, vomiting, abdominal pain, pelvic pain, blood in urine or stool, dysuria, urinary frequency or urgency, lightheadedness , dizziness, headache, memory loss, rash, abnormal bruising or bleeding, imbalance, focal or generalized weakness, arthralgias or myalgias, back or neck pain, night sweats. The review of systems is otherwise negative other than for that already noted above, and at least 10 systems have been reviewed. Physical Exam Vital Signs Date Time Temp Pulse Resp B/P Pulse Ox O2 Delivery O2 Flow Rate FiO2 10/23/16 21:15 161/97 10/23/16 19:27 37.2 107 24 181/109 92 Room Air 10/23/16 18:47 102 21 164/88 95 Room Air 10/23/16 18:00 95 19 118/82 95 10/23/16 16:54 96 Room Air 10/23/16 16:52 106 10/23/16 16:46 104 19 145/72 96 Room Air 10/23/16 14:35 93 22 156/89 96 Room Air 10/23/16 14:06 96 Room Air 10/23/16 12:54 96 10/23/16 12:51 96 Room Air 10/23/16 12:43 96 Room Air 10/23/16 12:35 36.7 76 22 139/75 98 The patient is awake, well-developed and adequately nourished, alert and oriented 3, normocephalic and atraumatic, lying in bed and in no acute distress. HEENT--PERRL, EOMI, mucous membranes and oropharynx dry. Neck--supple, no JVD or bruits, thyroid normal, trachea midline, no adenopathy. Heart--normal S1 and S2, no extra beats, no murmurs, rubs or gallops. Lungs--crackles at the bases bilaterally, no respiratory distress, no accessory muscle use. Abdomen--normal bowel sounds and soft, nontender and nondistended, no hernias or masses, no organomegaly. Extremities--no cyanosis, clubbing. There is bilaterally 2+ pitting Edema. There are good distal pulses b/l. Dermatologic--normal skin turgor, normal color, warm and dry, no abnormal lymph nodes, no rash. Neurologic--cranial nerves II through XII grossly intact, motor and sensory examination normal. Rheumatologic--normal range of motion, nontender, muscles and joints. Psychiatric--normal affect. Diagnostics Laboratory Results Results Past 24 Hours Test 10/23/16 13:22 10/23/16 14:27 10/23/16 14:47 10/23/16 16:42 Range/Units White Blood Count 20.88 4.8-10.8 K/uL Red Blood Count 4.68 4.2-5.4 M/uL Hemoglobin 9.2 12.0-16.0 g/dL Hematocrit 31.6 37-47 % Mean Corpuscular Volume 67.5 80-100 fL Mean Corpuscular Hemoglobin 19.7 25-34 pg Mean Corpuscular Hemoglobin Concent 29.1 32-36 g/dl Platelet Count 310 130-400 K/uL Mean Platelet Volume 9.3 7.4-10.4 fL Neutrophils (%) (Auto) 68.1 % Lymphocytes (%) (Auto) 20.6 % Monocytes (%) (Auto) 10.1 % Eosinophils (%) (Auto) 0.6 % Basophils (%) (Auto) 0.0 % Neutrophils # (Auto) 14.23 1.4-6.5 K/uL Lymphocytes # (Auto) 4.30 1.2-3.4 K/uL Monocytes # (Auto) 2.10 0.11-0.59 K/uL Eosinophils # (Auto) 0.12 0-0.5 K/uL Basophils # (Auto) 0.01 0-0.2 K/uL RDW Standard Deviation 53.6 36.4-46.3 fL RDW Coefficient of Variation 22.5 11.5-14.5 % Immature Granulocyte % (Auto) 0.6 % Immature Granulocyte # (Auto) 0.12 0.00-0.02 K/uL Nucleated RBC Absolute Count (auto) 0.14 0-0 K/uL Nucleated Red Blood Cells % 0.7 % Hypochromasia PRESENT Poikilocytosis PRESENT Anisocytosis PRESENT Microcytosis PRESENT Target Cells 1+ Prothrombin Time 16.1 9.0-12.0 SECONDS Prothromb Time International Ratio 1.5 0.9-1.1 Activated Partial Thromboplast Time 24.0 21.0-31.0 SECONDS Partial Thromboplastin Ratio 0.9 Sodium Level 144 136-145 mmol/L Potassium Level 3.5 3.5-5.1 mmol/L Chloride Level 108 98-107 mmol/L Carbon Dioxide Level 29 21-32 mmol/L Anion Gap 7.0 3-11 mmol/L Blood Urea Nitrogen 13 7-18 mg/dl Creatinine 0.52 0.60-1.20 mg/dl Est Creatinine Clear Calc Drug Dose 119.2 ml/min Estimated GFR () 112.2 Estimated GFR (Non- 96.8 BUN/Creatinine Ratio 24.4 10-20 Random Glucose 62 70-99 mg/dl Calcium Level 8.6 8.5-10.1 mg/dl Total Bilirubin 1.0 0.2-1 mg/dl Aspartate Amino Transf (AST/SGOT) 29 15-37 U/L Alanine Aminotransferase (ALT/SGPT) 35 12-78 U/L Alkaline Phosphatase 71 45-117 U/L Total Creatine Kinase 62 26-192 U/L Creatine Kinase MB 1.0 0.5-3.6 ng/ml Creatine Kinase MB Ratio 1.6 0-3.0 Troponin I < 0.015 0-0.045 ng/ml Pro-B-Type Natriuretic Peptide 1065 0-900 pg/ml Total Protein 5.6 6.4-8.2 gm/dl Albumin 2.5 3.4-5.0 gm/dl Globulin 3.1 2.5-4.0 gm/dl Albumin/Globulin Ratio 0.8 0.9-2 Hepatitis C Antibody Screen NEG NEG Bedside Glucose 63 70 70-90 mg/dl Urine Color YELLOW Urine Appearance CLEAR CLEAR Urine pH 8.0 4.5-7.5 Urine Specific [place] 1.013 1.000-1.030 Urine Protein NEG NEG Urine Glucose (UA) 1+ NEG Urine Ketones NEG NEG Urine Occult Blood NEG NEG Urine Nitrite NEG NEG Urine Bilirubin NEG NEG Urine Urobilinogen POS NEG Urine Leukocyte Esterase NEG NEG Test 10/23/16 18:34 10/23/16 20:11 Range/Units Bedside Glucose 313 329 70-90 mg/dl Diagnostic Radiology Patient Name: KENJI REESE Unit Number: [id number] Dictated: 10/23/16 134 Transcribed: 10/23/16 1340 MS Printed Date/Time: [~ rep prt dt]/[~ rep prt tm] [~ rep ct labl] - [~ rep ct ivnm] [facility] [place] [address] Dictated: 10/23/16 134 Transcribed: 10/23/16 1340 MS Printed Date/Time: [~ rep prt dt]/[~ rep prt tm] [~ rep ct labl] - [~ rep ct ivnm] CLINICAL HISTORY: EVALUATE RESPIRATORY DISTRESS. DYSPNEA dyspnea COMPARISON STUDY: 10/17/2016 FINDINGS: Mild cardiomegaly. Prior median sternotomy. Prominent pulmonary vasculature. IMPRESSION: Early congestive failure Electronically signed by: Reggie Álvarez M.D. 10/23/2016 1:41 PM Dictated Date/Time: 10/23/2016 1:40 PM The status of this report is Signed. Draft = Not yet reviewed or approved by Radiologist. Signed = Reviewed and approved by Radiologist. <AttendingPhy></AttendingPhy> <FamilyPhy>Chris Queen M.D.</FamilyPhy> < PrimaryPhy>Chris Queen M.D.</PrimaryPhy> <UnitNumber>[id number]</UnitNumber > <VisitNumber>[id number]</VisitNumber> <PatientName>KENJI REESE</PatientName > <DateOfBirth>1945</DateOfBirth> <Location>[facility]</Location> <ServiceDate> 10/23/16</ServiceDate> <MNE>TERESANDReina</MNE> <OrderingPhy>Carter Kuhn MD</ OrderingPhy> <OrderingPhyMNE>f rep ord dr barlow</OrderingPhyMNE> <DictatingPhyMNE> f rep dict dr barlow</DictatingPhyMNE> <CCListMNE>f rep ct cain</CCListMNE> < AdmittingPhyMNE>f pt admit dr barlow</AdmittingPhyMNE> <AttendingPhyMNE>f pt attend dr barlow</AttendingPhyMNE> <ConsultingPhyMNE>f pt consult dr barlow</ConsultingPhyMNE> <FamilyPhyMNE>f pt fam dr barlow</FamilyPhyMNE> <OtherPhyMNE>f pt other dr barlow</OtherPhyMNE> < PrimaryPhyMNE>f pt prim care dr barlow</PrimaryPhyMNE> <ReferringPhyMNE>f pt referring dr barlow</ReferringPhyMNE> EKG EKG shows atrial fibrillation at 88 bpm, incomplete right bundle branch block, T -wave inversion in lead III. Impression Assessment and Plan CHF exacerbation/rate control of atrial fibrillation/T-wave inversion in lead III/chronic anticoagulation with warfarin with subtherapeutic INR 1.5--patient be admitted to the telemetry unit, for serial cardiac enzymes, cardiac rhythm monitoring and a 2-D echocardiogram with Dopplers. We'll give albumin 25 g with Lasix 40 mg IV 1 dose now and then every 6 hours for 4 additional doses. Continue aspirin 81 mg by mouth daily metoprolol succinate 100 mg by mouth twice a day and increase warfarin from 1 mg 6 days per week and 2 mg 1 to wake to 2 mg daily. Follow serial BMP, magnesium and PT PTT. Asthma/allergy--continue Hycodan syrup 5 ML's by mouth every 4 hours when necessary, fexofenadine 180 mg by mouth daily. Hold Flovent HFA 2 puffs twice a day. Diabetes mellitus--she was recently changed to Toujeo which she does not like as well and would like to change back to Lantus. We'll therefore resume Lantus at her previous dosing 52 units subcutaneous every afternoon, and place on Accu- Cheks before meals and at bedtime with NovoLog coverage. Hypercholesterolemia-- continue Zetia 10 mg by mouth at bedtime and simvastatin 80 mg by mouth every afternoon. Hypothyroidism-- continue levothyroxine sodium at 175 g by mouth daily. GERD--continue Carafate 1 g by mouth when necessary, and ranitidine 300 mg by mouth at bedtime. Bladder spasm--continue Detrol LA 4 mg by mouth daily. Level of Care Telemetry Advanced Directives Existing Advance Directive: No Existing Living Will: No Existing Power of Medical Office Technologist: No Resuscitation Status FULL RESUSCITATION VTE Prophylaxis VTE Risk Assessment Done? Y/N: Yes Risk Level: Moderate Given or contraindicated: Warfarin (Coumadin)
[2016-10-24 00:28] VITALS: BP 133/72; PULSE 101; TEMP 37.1; O2SAT 95
[2016-10-24] MEDS ORDERED: ALBUMIN 25% 50 ML with FUROSEMIDE INJ 40 MG IV SCH ×2 (01:00)
[2016-10-24 01:53] LABS: CKMB/CK RATIO 1.2 (0-3.0)
[2016-10-24 05:00] VITALS: BP 119/67; PULSE 93; TEMP 37.1; O2SAT 95
[2016-10-24] MEDS: LEVOTHYROXINE 175 MCG TAB PO SCH (05:22)
[2016-10-24] MEDS: INSULIN ASPART 100 UNITS/ML 3 ML PEN SC SCH ×4 (07:00→21:23)
[2016-10-24] MEDS ORDERED: PERFLUTREN LIPID MICROSPHERE (DEFINITY) IV ONE (07:07)
[2016-10-24 07:34] VITALS: BP 125/83; PULSE 93; TEMP 37.3; O2SAT 95
[2016-10-24] MEDS: POTASSIUM CHLORIDE 10 MEQ TABCR PO SCH ×2 (08:06→20:31)
[2016-10-24] MEDS: METOPROLOL SUCC 50MG EXT REL TAB PO SCH ×2 (08:06→20:31)
[2016-10-24] MEDS: TOLTERODINE TARTRATE LA 4 MG CAPCR PO SCH (08:07)
[2016-10-24] MEDS: ASPIRIN 81 MG ECTAB PO SCH (08:07)
[2016-10-24] MEDS: FEXOFENADINE HCL 180 MG TAB PO SCH (08:08)
[2016-10-24 08:16] LABS: BASO ABS # 0.01 K/uL (0-0.2); EOS % 0.1 %; HEMATOCRIT 30.9 % (37-47); IG% 0.4 %; LYMPH % 15.6 %; LYMPH ABS # 3.32 K/uL (1.2-3.4); MEAN CORPUSCULAR HEMOGLOBIN 20.2 pg (25-34); MEAN CORPUSCULAR HGB CONC 30.1 g/dl (32-36); MEAN PLATELET VOLUME 9.1 fL (7.4-10.4); MONO % 10.3 %; NEUT % 73.6 %; PLATELET COUNT 290 K/uL (130-400); RED BLOOD COUNT 4.61 M/uL (4.2-5.4); WHITE BLOOD COUNT 21.22 K/uL (4.8-10.8)
[2016-10-24 08:38] LABS: INR 1.6 (0.9-1.1); PROTHROMBIN TIME (PATIENT) 17.8 SECONDS (9.0-12.0)
[2016-10-24 08:50] LABS: ANISOCYTOSIS PRESENT; COMPLETE YES; LARGE PLATELETS 1+; OVALOCYTES 1+; POLYCHROMASIA 1+
[2016-10-24 08:56] LABS: CKMB/CK RATIO 1.3 (0-3.0)
[2016-10-24] MEDS ORDERED: FUROSEMIDE INJ 40 MG in SYRINGE 0 ML IV SCH (09:00)
[2016-10-24] MEDS ORDERED: IRON COMPLEX POLYSACCHARIDE W/VIT C 150 MG CAP PO SCH (09:00)
[2016-10-24 09:08] LABS: BUN/CREATININE RATIO 23.5 (10-20); CALCIUM 8.9 mg/dl (8.5-10.1); CREATININE 0.68 mg/dl (0.60-1.20); MAGNESIUM 2.4 mg/dl (1.8-2.4); POTASSIUM 4.2 mmol/L (3.5-5.1)
--- NOTE | 2016-10-24 09:28 | Clinical Documentation Query ---
BISMARK Wolfe : CLINICAL DOCUMENTATION QUERY Patient is a 71 year old female admitted for evaluation and treatment of CHF exacerbation, not otherwise specified. She has been admitted to telemetry and will be treated with IV diuretics. She will be further evaluated by serial cardiac enzymes, 2D echocardiogram, I/O, daily weights. As able when echocardiogram available, please explicitly specify the acuity and type of CHF experienced by your patient. In your clinical opinion is this patient being managed for: (x ) Acute diastolic congestive heart failure ( ) Other explanation of clinical findings (Please Explain) ( ) Unable to determine (Please Define) ( ) Need to Discuss ( ) Not Agree The medical record reflects the following clinical findings, treatment, and risk factors. Clinical Indicators: As above Treatment:She has been admitted to telemetry and will be treated with IV diuretics. She will be further evaluated by serial cardiac enzymes, 2D echocardiogram, I/O, daily weights Risk Factors: Atrial fibrillation with RVR, hypertension. Please clarify and document your clinical opinion in the progress notes and discharge summary. Terms such as "probable", "suspected", "likely", "questionable", "possible", or "still to be ruled out" are acceptable. IF IN AGREEMENT, YOU MUST DOCUMENT ABOVE DIAGNOSTIC STATEMENT IN DAILY PROGRESS NOTES AND DISCHARGE SUMMARY. This document is not part of the patient's record. Thank You, Kobi Buitrago, AYAAN [phone]
[2016-10-24] MEDS ORDERED: NURSING VERBAL MED ORDER ONE (09:30)
--- NOTE | 2016-10-24 09:30 | Clinical Documentation Query ---
MS. WELCHCASEY : CLINICAL DOCUMENTATION QUERY Patient is a 71 year old female admitted for evaluation and treatment of CHF exacerbation, not otherwise specified. She has been admitted to telemetry and will be treated with IV diuretics. She will be further evaluated by serial cardiac enzymes, 2D echocardiogram, I/O, daily weights. As able when echocardiogram available, please explicitly specify the acuity and type of CHF experienced by your patient. In your clinical opinion is this patient being managed for: ( x ) Acute diastolic congestive heart failure ( ) Other explanation of clinical findings (Please Explain) ( ) Unable to determine (Please Define) ( ) Need to Discuss ( ) Not Agree The medical record reflects the following clinical findings, treatment, and risk factors. Clinical Indicators: As above Treatment:She has been admitted to telemetry and will be treated with IV diuretics. She will be further evaluated by serial cardiac enzymes, 2D echocardiogram, I/O, daily weights Risk Factors: Atrial fibrillation with RVR, hypertension. Please clarify and document your clinical opinion in the progress notes and discharge summary. Terms such as "probable", "suspected", "likely", "questionable", "possible", or "still to be ruled out" are acceptable. IF IN AGREEMENT, YOU MUST DOCUMENT ABOVE DIAGNOSTIC STATEMENT IN DAILY PROGRESS NOTES AND DISCHARGE SUMMARY. This document is not part of the patient's record. Thank You, Kobi Buitrago RN [phone]
--- NOTE | 2016-10-24 10:30 | ECHOCARDIOGRAM REPORT ---
*NOTICE TO RECEIVING REPUBLICAN AGENCY This information is strictly Confidential and protected under [place] law. [place] law prohibits you from making any further disclosure of this information unless further disclosure is expressly permitted by the written consent of the person to whom it pertains or is authorized by law. A general authorization for the release of medical or other information is not sufficient for this purpose. Hospital accepts no responsibility if the information is made available to any other person, INCLUDING THE PATIENT. Interpretation Summary * Name: KENJI REESE Study Date: 10/24/2016 06:49 AM BP: 119/67 mmHg * Patient Location: C.2E\S\E208\S\1 HR: 93 * : 1945 (M/d/yyyy) Gender: Female Height: 60 in * Age: 71 yrs Ethnicity: CA Weight: 267 lb * Ordering Physician: Matthew De La O * Referring Physician: Self, Referred * Performed By: Hellen Wills RCS * * Reason For Study: CHF * BSA: 2.1 m2 * -- Conclusions -- * Left ventricular systolic function is normal. * The left atrium is moderately dilated. * There is mild to moderate tricuspid regurgitation. Procedure Details * A complete two-dimensional transthoracic echocardiogram was performed (2D, M-mode, Doppler and color flow Doppler). * The study was technically difficult. * There were technical limitations due to patient'sbody habitus * A contrast injection of Definity was performed to improve assessment of LV function. * Contrast was injected into an intravenous site in the right arm. * One vial of Definity ultrasound contrast was diluted in normal saline to a total volume of 10 ml. A total of '2' ml of solution was administered during imaging. * Lot # [id number] of Definity utilized for procedure. * Expiration date . * The attending nurse who injected the contrast agent was Radha Boyd RN. Left Ventricle * The left ventricle is normal in size. * There is normal left ventricular wall thickness. * Ejection Fraction = 60-65%. * Left ventricular systolic function is normal. Right Ventricle * The right ventricle is grossly normal size. Atria * The left atrium is moderately dilated. * Right atrial size is normal. Mitral Valve * The mitral valve is not well visualized. * There is no mitral regurgitation noted. Tricuspid Valve * The tricuspid valve is not well visualized, but is grossly normal. * There is mild to moderate tricuspid regurgitation. * Right ventricular systolic pressure is normal. Aortic Valve * The aortic valve is normal in structure and function. * No hemodynamically significant valvular aortic stenosis. * There is no significant aortic regurgitation. Great Vessels * The aortic root is normal size. Pericardium/Pleural * There is no pericardial effusion. MMode 2D Measurements and Calculations IVSd 1.1 cm IVSs 1.4 cm LVIDd 4.3 cm LVIDs 3.0 cm LVPWd 1.1 cm LVPWs 1.4 cm IVS/LVPW 0.97 FS 31.3 % EDV(Teich) 85.1 ml ESV(Teich) 34.5 ml EF(Teich) 59.4 % EDV(cubed) 82.0 ml ESV(cubed) 26.6 ml EF(cubed) 67.6 % % IVS thick 31.6 % % LVPW thick 23.6 % LV mass(C)d 162.6 grams LV mass(C)dI 77.1 grams/m\S\2 LV mass(C)s 136.9 grams LV mass(C)sI 64.9 grams/m\S\2 CO(Teich) 4.9 l/min CI(Teich) 2.3 l/min/m\S\2 SV(Teich) 50.6 ml SI(Teich) 24.0 ml/m\S\2 CO(cubed) 5.4 l/min CI(cubed) 2.5 l/min/m\S\2 SV(cubed) 55.4 ml SI(cubed) 26.3 ml/m\S\2 Ao root diam 3.0 cm Ao root area 6.9 cm\S\2 ACS 1.3 cm LA dimension 5.0 cm LA/Ao 1.7 LVAd ap4 36.5 cm\S\2 LVLd ap4 8.4 cm EDV(MOD-sp4) 133.0 ml LVAs ap4 19.6 cm\S\2 LVLs ap4 6.7 cm ESV(MOD-sp4) 47.0 ml EF(MOD-sp4) 64.7 % LVAd ap2 28.7 cm\S\2 LVLd ap2 8.1 cm EDV(MOD-sp2) 83.0 ml LVAs ap2 16.0 cm\S\2 LVLs ap2 7.0 cm ESV(MOD-sp2) 30.0 ml EF(MOD-sp2) 63.9 % CO(MOD-sp4) 8.3 l/min CI(MOD-sp4) 4.0 l/min/m\S\2 SV(MOD-sp4) 86.0 ml SI(MOD-sp4) 40.7 ml/m\S\2 CO(MOD-sp2) 5.1 l/min CI(MOD-sp2) 2.4 l/min/m\S\2 SV(MOD-sp2) 53.0 ml SI(MOD-sp2) 25.1 ml/m\S\2 Doppler Measurements and Calculations MV E max lindsey 126.5 cm/sec MV A max lindsey 40.1 cm/sec MV E/A 3.2 MV P1/2t max lindsey 126.7 cm/sec MV P1/2t 69.8 msec MVA(P1/2t) 3.2 cm\S\2 MV dec slope 531.9 cm/sec\S\2 MV dec time 0.17 sec Ao V2 max 190.0 cm/sec Ao max PG 14.4 mmHg Ao max PG (full) 11.4 mmHg LV V1 max PG 3.1 mmHg LV V1 max 87.9 cm/sec PA V2 max 117.8 cm/sec PA max PG 5.6 mmHg TR max lindsey 231.5 cm/sec
[2016-10-24 11:45] VITALS: BP 97/60; PULSE 101; TEMP 36.8; O2SAT 92
[2016-10-24 12:15] VITALS: BMI 50.1
--- NOTE | 2016-10-24 13:29 | Progress Note ---
Subjective Date of Service: Oct 24, 2016. (Caren Gomez PA-C) Subjective Pt evaluation today including: conversation w/ patient, physical exam, chart review, lab review, review of studies, review of inpatient medication list Patient seen and evaluated. No acute events overnight. Patient has diuresed approximately 6 L overnight. Patient does report some improvement in congestion and bilateral lower extremity edema. Patient with diffuse abdominal ecchymosis secondary to significant coughing and Coumadin use. She denies any traumatic injury. (Caren Gomez PA-C) Problem List Medical Problems: (1) Acute CHF Status: Acute (2) Cough Status: Acute (3) Hypertension Status: Acute (Caren Gomez PA-C) Review of Systems Constitutional: No chills, No fever ENT: No sore throat, No trouble swallowing Respiratory: + cough, + sputum, No shortness of breath Cardiac: No chest pain Abdomen: No constipation, No diarrhea, No nausea, No pain, No vomiting Musculoskeletal: + swelling, No calf pain (improved) Female : No dysuria Skin: + problem reported (abdominal ecchymosis) (Caren Gomez PA-C) Medications Current Inpatient Medications Medications (Trade) Dose Ordered Sig/Jonathon Route Start Time Stop Time Status Last Admin Dose Admin Acetaminophen (Tylenol Tab) 650 mg Q4H PRN PO 10/23/16 16:15 11/22/16 16:14 Zolpidem Tartrate (Ambien Tab) 5 mg HSZ PRN PO 10/23/16 16:15 11/22/16 16:14 Nitroglycerin (Nitrostat Tab) 0.4 mg UD PRN SL 10/23/16 16:15 11/22/16 16:14 Ondansetron HCl (Zofran Inj) 4 mg Q6H PRN IV 10/23/16 16:15 11/22/16 16:14 Insulin Aspart (novoLOG ASPART) SLIDING SCALE If C... ACHS SC 10/23/16 21:00 11/22/16 20:59 10/24/16 11:41 14 UNITS Glucose (Glucose 40% Gel) UD PRN PO 10/23/16 16:15 11/22/16 16:14 Glucose (Glucose Chew Tab) 1 tabs UD PRN PO 10/23/16 16:15 11/22/16 16:14 Dextrose (Dextrose 50% 50ML Syringe) 50 ml UD PRN IV 10/23/16 16:15 11/22/16 16:14 Glucagon (Glucagon Inj) 1 mg UD PRN SQ 10/23/16 16:15 11/22/16 16:14 Aspirin (Ecotrin Tab) 81 mg DAILY PO 10/24/16 09:00 11/23/16 08:59 10/24/16 08:07 81 MG EZETIMIBE (Zetia Tab) 10 mg HS PO 10/23/16 21:00 11/22/16 20:59 10/23/16 20:05 10 MG Fexofenadine HCl (Abby Tab) 180 mg DAILY PO 10/24/16 09:00 11/23/16 08:59 10/24/16 08:08 180 MG Fluticasone Propionate (Flonase Nasal [place]) 1 sprays DAILY PRN REBEKAH 10/23/16 16:15 11/22/16 16:14 Hydrocodone Bit/ Homatropine Methylb (Hycodan Syrup) 5 ml Q4H PRN PO 10/23/16 16:15 11/06/16 16:14 10/24/16 01:53 5 ML Levothyroxine Sodium (Synthroid Tab) 175 mcg DAILYBB PO 10/24/16 06:00 11/23/16 06:59 10/24/16 05:22 175 MCG Metoprolol Succinate (Toprol Xl Tab) 100 mg BID PO 10/23/16 21:00 11/22/16 20:59 10/24/16 08:06 100 MG Polysaccharide Iron Complex (Niferex-150 w/ Vit C Cap) 150 mg DAILY PO 10/24/16 09:00 11/23/16 08:59 10/24/16 08:08 150 MG Ranitidine HCl (zANTac TAB) 300 mg HS PO 10/23/16 21:00 11/22/16 20:59 10/23/16 20:04 300 MG Simvastatin (Zocor Tab) 80 mg QPM PO 10/23/16 21:00 11/22/16 20:59 10/23/16 20:04 80 MG Tolterodine Tartrate (Detrol LA Cap) 4 mg DAILY PO 10/24/16 09:00 11/23/16 08:59 10/24/16 08:07 4 MG Insulin Glargine (Lantus Solostar Pen) 52 unit QPM SC 10/23/16 21:00 11/22/16 20:59 10/23/16 20:14 52 UNIT Warfarin Sodium (Coumadin Tab) 2 mg DAILY@1600 PO 10/23/16 20:00 11/22/16 19:59 10/23/16 20:03 2 MG Potassium Chloride (Klor-Con M10) 40 meq BID PO 10/23/16 21:00 11/22/16 20:59 10/24/16 08:06 40 MEQ Ipratropium [place]ugger (Atrovent 0.02% 0.5MG/2.5ML Neb) 0.5 mg Q2H PRN INH 10/23/16 18:15 11/22/16 18:14 Levalbuterol (Xopenex 1.25MG/ 0.5ML Neb) 1.25 mg Q2H PRN INH 10/23/16 18:15 11/22/16 18:14 Sucralfate (Carafate Tab) 1 gm BID PRN PO 10/23/16 21:00 11/22/16 20:59 (Caren Gomez, JENELLEC) Objective Vital Signs Date Time Temp Pulse Resp B/P Pulse Ox O2 Delivery O2 Flow Rate FiO2 10/24/16 12:00 Room Air 10/24/16 11:45 36.8 101 16 97/60 92 Room Air 10/24/16 08:00 Room Air 10/24/16 07:34 37.3 93 22 125/83 95 Room Air 10/24/16 05:00 37.1 93 18 119/67 95 Room Air 10/24/16 04:00 Room Air 10/24/16 00:28 37.1 101 18 133/72 95 Room Air 10/24/16 00:00 Room Air 10/23/16 21:15 161/97 10/23/16 20:10 Room Air 10/23/16 19:27 37.2 107 24 181/109 92 Room Air 10/23/16 18:47 102 21 164/88 95 Room Air 10/23/16 18:00 95 19 118/82 95 10/23/16 16:54 96 Room Air 10/23/16 16:52 106 10/23/16 16:46 104 19 145/72 96 Room Air 10/23/16 14:35 93 22 156/89 96 Room Air 10/23/16 14:06 96 Room Air (Caren Gomez PA-C) Physical Exam General Appearance: WD/WN, no apparent distress, + obese Eyes: sclerae normal ENT: hearing grossly normal Neck: supple, no JVD, trachea midline Respiratory/Chest: no respiratory distress, no accessory muscle use, + crackles (bases bilaterally) Cardiovascular: no gallop, no murmur, + irregularly irregular Abdomen: normal bowel sounds, non tender, soft Extremities: no pedal edema, no calf tenderness, + swelling (bilateral 1+ pitting edema, left > right, extends to the knee) Neurologic/Psychiatric: alert, oriented x 3 Skin: warm/dry, + pertinent finding (large ecchymosis extending from the RLQ to the LLQ and extends onto the back and upper thigh that is in multiple stages of healing) (Caren Gomez, PA-C) Laboratory Results Last 24 Hours Test 10/23/16 13:22 10/23/16 14:27 10/23/16 14:47 10/23/16 16:42 White Blood Count 20.88 K/uL Red Blood Count 4.68 M/uL Hemoglobin 9.2 g/dL Hematocrit 31.6 % Mean Corpuscular Volume 67.5 fL Mean Corpuscular Hemoglobin 19.7 pg Mean Corpuscular Hemoglobin Concent 29.1 g/dl Platelet Count 310 K/uL Mean Platelet Volume 9.3 fL Neutrophils (%) (Auto) 68.1 % Lymphocytes (%) (Auto) 20.6 % Monocytes (%) (Auto) 10.1 % Eosinophils (%) (Auto) 0.6 % Basophils (%) (Auto) 0.0 % Neutrophils # (Auto) 14.23 K/uL Lymphocytes # (Auto) 4.30 K/uL Monocytes # (Auto) 2.10 K/uL Eosinophils # (Auto) 0.12 K/uL Basophils # (Auto) 0.01 K/uL RDW Standard Deviation 53.6 fL RDW Coefficient of Variation 22.5 % Immature Granulocyte % (Auto) 0.6 % Immature Granulocyte # (Auto) 0.12 K/uL Nucleated RBC Absolute Count (auto) 0.14 K/uL Nucleated Red Blood Cells % 0.7 % Hypochromasia PRESENT Poikilocytosis PRESENT Anisocytosis PRESENT Microcytosis PRESENT Target Cells 1+ Prothrombin Time 16.1 SECONDS Prothromb Time International Ratio 1.5 Activated Partial Thromboplast Time 24.0 SECONDS Partial Thromboplastin Ratio 0.9 Sodium Level 144 mmol/L Potassium Level 3.5 mmol/L Chloride Level 108 mmol/L Carbon Dioxide Level 29 mmol/L Anion Gap 7.0 mmol/L Blood Urea Nitrogen 13 mg/dl Creatinine 0.52 mg/dl Est Creatinine Clear Calc Drug Dose 119.2 ml/min Estimated GFR () 112.2 Estimated GFR (Non- 96.8 BUN/Creatinine Ratio 24.4 Random Glucose 62 mg/dl Calcium Level 8.6 mg/dl Total Bilirubin 1.0 mg/dl Aspartate Amino Transf (AST/SGOT) 29 U/L Alanine Aminotransferase (ALT/SGPT) 35 U/L Alkaline Phosphatase 71 U/L Total Creatine Kinase 62 U/L Creatine Kinase MB 1.0 ng/ml Creatine Kinase MB Ratio 1.6 Troponin I < 0.015 ng/ml Pro-B-Type Natriuretic Peptide 1065 pg/ml Total Protein 5.6 gm/dl Albumin 2.5 gm/dl Globulin 3.1 gm/dl Albumin/Globulin Ratio 0.8 Hepatitis C Antibody Screen NEG Bedside Glucose 63 mg/dl 70 mg/dl Urine Color YELLOW Urine Appearance CLEAR Urine pH 8.0 Urine Specific [place] 1.013 Urine Protein NEG Urine Glucose (UA) 1+ Urine Ketones NEG Urine Occult Blood NEG Urine Nitrite NEG Urine Bilirubin NEG Urine Urobilinogen POS Urine Leukocyte Esterase NEG Test 10/23/16 18:34 10/23/16 20:11 10/24/16 00:47 10/24/16 06:51 Bedside Glucose 313 mg/dl 329 mg/dl 256 mg/dl Total Creatine Kinase 51 U/L Creatine Kinase MB 0.6 ng/ml Creatine Kinase MB Ratio 1.2 Troponin I < 0.015 ng/ml Test 10/24/16 07:56 10/24/16 10:47 White Blood Count 21.22 K/uL Red Blood Count 4.61 M/uL Hemoglobin 9.3 g/dL Hematocrit 30.9 % Mean Corpuscular Volume 67.0 fL Mean Corpuscular Hemoglobin 20.2 pg Mean Corpuscular Hemoglobin Concent 30.1 g/dl Platelet Count 290 K/uL Mean Platelet Volume 9.1 fL Neutrophils (%) (Auto) 73.6 % Lymphocytes (%) (Auto) 15.6 % Monocytes (%) (Auto) 10.3 % Eosinophils (%) (Auto) 0.1 % Basophils (%) (Auto) 0.0 % Neutrophils # (Auto) 15.60 K/uL Lymphocytes # (Auto) 3.32 K/uL Monocytes # (Auto) 2.19 K/uL Eosinophils # (Auto) 0.02 K/uL Basophils # (Auto) 0.01 K/uL RDW Standard Deviation 52.6 fL RDW Coefficient of Variation 22.5 % Immature Granulocyte % (Auto) 0.4 % Immature Granulocyte # (Auto) 0.08 K/uL Nucleated RBC Absolute Count (auto) 0.07 K/uL Nucleated Red Blood Cells % 0.3 % Large Platelets 1+ Polychromasia 1+ Anisocytosis PRESENT Ovalocytes 1+ Prothrombin Time 17.8 SECONDS Prothromb Time International Ratio 1.6 Activated Partial Thromboplast Time 25.2 SECONDS Partial Thromboplastin Ratio 1.0 Sodium Level 141 mmol/L Potassium Level 4.2 mmol/L Chloride Level 100 mmol/L Carbon Dioxide Level 32 mmol/L Anion Gap 9.0 mmol/L Blood Urea Nitrogen 16 mg/dl Creatinine 0.68 mg/dl Est Creatinine Clear Calc Drug Dose 89.8 ml/min Estimated GFR () 102.7 Estimated GFR (Non- 88.6 BUN/Creatinine Ratio 23.5 Random Glucose 271 mg/dl Calcium Level 8.9 mg/dl Magnesium Level 2.4 mg/dl Total Creatine Kinase 48 U/L Creatine Kinase MB 0.6 ng/ml Creatine Kinase MB Ratio 1.3 Troponin I < 0.015 ng/ml Bedside Glucose 275 mg/dl (Caren Gomez, PA-C) Assessment and Plan Acute Diastolic Congestive Heart Failure: - Received albumin and Lasix overnight - diuresed approximately 6 L -- Patient reports dry weight of 252 pounds - expected diuresis some more - Echo - EF 60-65%; moderate dilation of the left atrium; mild to moderate tricuspid regurgitation Asthma/Allergy/URI: Outpatient antibiotics and prednisone taper completed - Atrovent and Xopenex nebulizers - Mucinex 1200 mg BID and Abby 180 mg daily - Flonase daily PRN - Hycodan 5 mL Q4H PRN Microcytic Anemia: - Previous iron studies suggestive of iron deficiency - Repeat iron studies in AM and obtain stool Hemoccult - Start ferrous sulfate 325 mg BID Chronic Atrial Fibrillation: Rate Controlled - Subtherapeutic INR at 1.6 - Coumadin 2 mg daily - Metoprolol succinate 100 mg BID Diabetes Mellitus: - Patient was recently changed to [place] but is reporting poor control - Lantus 52 units SC daily - Tighten sliding scale with SSI - goal 100-150; correction factor 25; carb ratio 8 -- Patient received Solu-Medrol 125 in ED - will expect some higher glucose readings HLD: - Zetia 10 mg daily and Simvastatin 80 mg daily Hypothyroidism: - Synthroid 175 mcg daily GERD: - Zantac 300 mg daily and Carafate 1 g BID PRN DVT Prophylaxis: - HEYDI/SCDs - Coumadin Code Status: FULL RESUSCITATION Disposition: - Possible discharge in 1-2 days to home (Caren Gomez, PA-C) Attending Attestation: Pt seen/examined, chart reviewed, care plan d/w SOWMYA Gomez. I agree with the josue components of her documentation. Feels much better today. Less dyspnea, less cough, less orthopnea, less peripheral edema. Cont with hoarse voice x several weeks. VSS, HRs< 100 O2 sats >90% in RA neg 6.5 liters gen - obese neck - JVD present heart - irregular, s1, s2 lungs - decreased BS bases, no rales, no increased WOB abd - obese, soft, no HSM ext - 2+ edema b/l labs - BMP nl microcytic anemia on CBC A/P: 1. acute/chronic diastolic CHF - improved. Given brisk diuresis would hold any further lasix today for fear of dropping BP and making her pre-renal. d/c albumin. recheck labs in AM. if BUN & CR are stable resume IV lasix then. 2. a. fib - rates controlled with BB. cont coumadin per home dosing. unclear why INR was sub-therapeutic. INR in am. 3. hypoalbuminemia - unsure if this represents protein calorie malnutrition or a cirrhotic state. may need w/u for liver disease. no proteinuria on u/a. 4. uncontrolled T2DM - increase correction & carb ratio. 5. microcytic anemia - had fe def in the fall of 2015. repeat iron studies in AM. start Fe presumptively. needs GI w/u if still Fe deficient. agree w/ guaiac of stool. PT, OT J OBED CUENCA (Demar Vann MD)
[2016-10-24] MEDS: GUAIFENESIN 600 MG TABCR PO SCH ×2 (14:28→21:17)
[2016-10-24 15:25] VITALS: BP 132/76; PULSE 91; TEMP 37.2; O2SAT 90
[2016-10-24] MEDS: WARFARIN SOD 2 MG TAB PO SCH (15:42)
[2016-10-24] MEDS: FERROUS SULFATE 325 MG TAB PO SCH (15:42)
[2016-10-24 18:55] VITALS: BP 139/71; PULSE 96; TEMP 37.1; O2SAT 95
[2016-10-24] MEDS: RANITIDINE HCL 150 MG TAB PO SCH (20:32)
[2016-10-24] MEDS: SIMVASTATIN 80 MG TAB PO SCH (20:32)
[2016-10-24] MEDS: EZETIMIBE 10MG TAB PO SCH (20:32)
[2016-10-24] MEDS: INSULIN GLARGINE SOLOSTAR 100 UNITS/ML 3 ML PEN SC SCH (21:22)
[2016-10-25] VITALS (9 sets, daily range): BP systolic 113–159; BP diastolic 58–92; PULSE 86–111; TEMP 36.3–36.8; O2SAT 93–96; Ht 152.4 cm; Wt 112.1 kg
[2016-10-25] MEDS: LEVOTHYROXINE 175 MCG TAB PO SCH (05:39)
[2016-10-25 06:56] LABS: INR 1.8 (0.9-1.1); PROTHROMBIN TIME (PATIENT) 19.5 SECONDS (9.0-12.0)
[2016-10-25] MEDS: INSULIN ASPART 100 UNITS/ML 3 ML PEN SC SCH ×4 (07:00→21:04)
[2016-10-25 07:02] LABS: ESTIMATED AVERAGE GLUCOSE 186 mg/dl; HA1C FLAG Normal (Normal)
[2016-10-25 07:16] LABS: BUN/CREATININE RATIO 31.5 (10-20); CALCIUM 8.4 mg/dl (8.5-10.1); CREATININE 0.63 mg/dl (0.60-1.20); MAGNESIUM 2.3 mg/dl (1.8-2.4); POTASSIUM 4.3 mmol/L (3.5-5.1)
[2016-10-25 07:20] LABS: FERRITIN 44.4 ng/ml (8.0-388.0)
[2016-10-25] MEDS ORDERED: FUROSEMIDE INJ 40 MG in SYRINGE 0 ML IV ONE ×2 (07:45→17:00)
[2016-10-25] MEDS: METOPROLOL SUCC 50MG EXT REL TAB PO SCH ×2 (07:55→20:52)
[2016-10-25] MEDS: POTASSIUM CHLORIDE 10 MEQ TABCR PO SCH ×2 (07:56→20:52)
[2016-10-25] MEDS: TOLTERODINE TARTRATE LA 4 MG CAPCR PO SCH (07:56)
[2016-10-25] MEDS: FEXOFENADINE HCL 180 MG TAB PO SCH (07:56)
[2016-10-25] MEDS: FERROUS SULFATE 325 MG TAB PO SCH ×2 (07:57→16:50)
[2016-10-25] MEDS: ASPIRIN 81 MG ECTAB PO SCH (07:57)
[2016-10-25] MEDS: GUAIFENESIN 600 MG TABCR PO SCH ×2 (07:57→20:52)
[2016-10-25 08:00] LABS: HEMATOCRIT 33.4 % (37-47); MEAN CORPUSCULAR HEMOGLOBIN 19.6 pg (25-34); MEAN CORPUSCULAR HGB CONC 28.7 g/dl (32-36); MEAN PLATELET VOLUME 9.6 fL (7.4-10.4); PLATELET COUNT 280 K/uL (130-400); RED BLOOD COUNT 4.91 M/uL (4.2-5.4); WHITE BLOOD COUNT 16.81 K/uL (4.8-10.8)
[2016-10-25 08:23] LABS: ANISOCYTOSIS PRESENT; COMPLETE YES; HYPOCHROMIA PRESENT; IG% 0.4 %; LYMPH % 24.3 %; LYMPH ABS # 4.08 K/uL (1.2-3.4); MICROCYTOSIS PRESENT; MONO % 10.2 %; NEUT % 64.1 %; OVALOCYTES 1+; POLYCHROMASIA 1+
--- NOTE | 2016-10-25 11:39 | Pharmacy Progress Note ---
Glycemic Control: Initial Note Date of Service Oct 25, 2016. Scope Glycemic Pharmacist to provide recommendations to improve glycemic control (all ICU patients are screened for hyperglycemia and treatment recommendations are provided per protocol). Pt identified with hyperglycemia (BSG above 180) while admitted to [facility] ([facility]). Subjective The patient is a 71 year old female admitted on Oct 23, 2016 at 16:24 for Atrial Fibrillation, Chf Exacerbation. Patient's past medical history IS significant for diabetes mellitus. Objective Height (Feet): 5 Height (Inches): 0.00 Weight (Kilograms): 114.410 Accuchecks BSG (last 24hrs): Test 10/24/16 16:09 10/24/16 21:07 10/25/16 06:12 10/25/16 06:48 Bedside Glucose 259 mg/dl (70-90) 166 mg/dl (70-90) 80 mg/dl (70-90) Random Glucose 70 mg/dl (70-99) Laboratory Data (last 24hrs) Test 10/25/16 06:12 Anion Gap 5.0 mmol/L BUN/Creatinine Ratio 31.5 Blood Urea Nitrogen 20 mg/dl Creatinine 0.63 mg/dl Hemoglobin A1c 8.1 % Potassium Level 4.3 mmol/L Sodium Level 142 mmol/L White Blood Count 16.81 K/uL Red Blood Count 4.91 M/uL Hemoglobin 9.6 g/dL Hematocrit 33.4 % Mean Corpuscular Volume 68.0 fL Mean Corpuscular Hemoglobin 19.6 pg Mean Corpuscular Hemoglobin Concent 28.7 g/dl Platelet Count 280 K/uL Mean Platelet Volume 9.6 fL Neutrophils (%) (Auto) 64.1 % Lymphocytes (%) (Auto) 24.3 % Monocytes (%) (Auto) 10.2 % Eosinophils (%) (Auto) 1.0 % Basophils (%) (Auto) 0.0 % Neutrophils # (Auto) 10.78 K/uL Lymphocytes # (Auto) 4.08 K/uL Monocytes # (Auto) 1.72 K/uL Eosinophils # (Auto) 0.16 K/uL Basophils # (Auto) 0.00 K/uL Recent Pertinent Medications Outpatient Anti-diabetic Regimen: * Toujeo 42 units qhs, Novolog carb ratio 1 unit per 6 Gm CHO consumed The patient is currently receiving: * Basal Insulin: Lantus 52 units every hs * Correctional Insulin: Novolog Correction per scale ACHS Goal Range: Low 100 mg/dL - High 150 mg/dL Correction Factor: 20 mg/dL/unit * Prandial Insulin: Per carb ratio of 1 unit per 6 grams CHO consumed Risk Factors for Insulin Resistance: * Steroids: Solumedrol 125 mg x 1 dose 10/23 @1404 * Diet: type 1 diabetic, good appetite Assessment & Plan ASSESSMENT: * ADA & AACE recommend a goal blood sugar range 140-180 mg/dl for critically ill patients in the ICU. However, more stringent targets may be selected in individual cases. * Patient has been receiving more basal insulin than her home dose. BSG's trending steadily down and FBS a bit low this am. RECOMMEND: * Decreasing Lantus to 45 units SQ qhs * Continuing correction factor 20 mg/dl/unit * Continuing carb ratio 1 unit per 6 grams CHO consumed * Changing goal range Low 110 mg/dL - High 150 mg/dL, to decrease risk of hypoglycemia in elderly patient * Consider changing diet to type 2 diabetic Pharmacy will continue to provide recommendations in EMR while patient admitted to 1E[facility]. Physicians may request pharmacy to continue to follow patient when transferred out of the ICU and/or consult pharmacy to write glycemic control orders * Please note that the plan above was derived based on current level of insulin resistance and hospital stress. These recommendations are appropriate for inpatient admission only. Plan of care upon discharge will need to be reassessed to avoid potential outpatient hypo/hyperglycemia. Thank you.
--- NOTE | 2016-10-25 12:39 | Progress Note ---
Subjective Date of Service: Oct 25, 2016. (Caren Gomez PA-C) Subjective Pt evaluation today including: conversation w/ patient, physical exam, chart review, lab review, review of inpatient medication list Patient seen and evaluated. No acute events overnight. Patient did diurese some more overnight. She has a negative balance of 6650 mL. Patient with limited ambulation, but reports no dyspnea on exertion. Continues to have productive cough of thick white sputum but feels she is improving. Lower extremity edema is improving and she reports legs do not feel as tight as they did when she was admitted. Iron studies were obtained that show a low iron and patient reports that she needed iron supplementation in the past. (Caren Gomez PA-C) Problem List Medical Problems: (1) Acute CHF Status: Acute (2) Cough Status: Acute (3) Hypertension Status: Acute (Caren Gomez PA-C) Review of Systems Constitutional: No chills, No fever Respiratory: + cough, + sputum, No shortness of breath Cardiac: No chest pain Abdomen: No constipation, No diarrhea, No nausea, No pain, No vomiting Musculoskeletal: + swelling (improving), No calf pain Skin: + problem reported (diffuse ecchymosis of abdomen), No rash (Caren Gomez PA-C) Medications Current Inpatient Medications Medications (Trade) Dose Ordered Sig/Jonathon Route Start Time Stop Time Status Last Admin Dose Admin Acetaminophen (Tylenol Tab) 650 mg Q4H PRN PO 10/23/16 16:15 11/22/16 16:14 Zolpidem Tartrate (Ambien Tab) 5 mg HSZ PRN PO 10/23/16 16:15 11/22/16 16:14 Nitroglycerin (Nitrostat Tab) 0.4 mg UD PRN SL 10/23/16 16:15 11/22/16 16:14 Ondansetron HCl (Zofran Inj) 4 mg Q6H PRN IV 10/23/16 16:15 11/22/16 16:14 Insulin Aspart (novoLOG ASPART) SLIDING SCALE If C... ACHS SC 10/23/16 21:00 11/22/16 20:59 10/25/16 12:14 21 UNITS Glucose (Glucose 40% Gel) UD PRN PO 10/23/16 16:15 11/22/16 16:14 Glucose (Glucose Chew Tab) 1 tabs UD PRN PO 10/23/16 16:15 11/22/16 16:14 Dextrose (Dextrose 50% 50ML Syringe) 50 ml UD PRN IV 10/23/16 16:15 11/22/16 16:14 Glucagon (Glucagon Inj) 1 mg UD PRN SQ 10/23/16 16:15 11/22/16 16:14 Aspirin (Ecotrin Tab) 81 mg DAILY PO 10/24/16 09:00 11/23/16 08:59 10/25/16 07:57 81 MG EZETIMIBE (Zetia Tab) 10 mg HS PO 10/23/16 21:00 11/22/16 20:59 10/24/16 20:32 10 MG Fexofenadine HCl (Abby Tab) 180 mg DAILY PO 10/24/16 09:00 11/23/16 08:59 10/25/16 07:56 180 MG Fluticasone Propionate (Flonase Nasal [place]) 1 sprays DAILY PRN REBEKAH 10/23/16 16:15 11/22/16 16:14 Hydrocodone Bit/ Homatropine Methylb (Hycodan Syrup) 5 ml Q4H PRN PO 10/23/16 16:15 11/06/16 16:14 10/24/16 01:53 5 ML Levothyroxine Sodium (Synthroid Tab) 175 mcg DAILYBB PO 10/24/16 06:00 11/23/16 06:59 10/25/16 05:39 175 MCG Metoprolol Succinate (Toprol Xl Tab) 100 mg BID PO 10/23/16 21:00 11/22/16 20:59 10/25/16 07:55 100 MG Ranitidine HCl (zANTac TAB) 300 mg HS PO 10/23/16 21:00 11/22/16 20:59 10/24/16 20:32 300 MG Simvastatin (Zocor Tab) 80 mg QPM PO 10/23/16 21:00 11/22/16 20:59 10/24/16 20:32 80 MG Tolterodine Tartrate (Detrol LA Cap) 4 mg DAILY PO 10/24/16 09:00 11/23/16 08:59 10/25/16 07:56 4 MG Insulin Glargine (Lantus Solostar Pen) 52 unit QPM SC 10/23/16 21:00 11/22/16 20:59 10/24/16 21:22 52 UNIT Warfarin Sodium (Coumadin Tab) 2 mg DAILY@1600 PO 10/23/16 20:00 11/22/16 19:59 10/24/16 15:42 2 MG Potassium Chloride (Klor-Con M10) 40 meq BID PO 10/23/16 21:00 11/22/16 20:59 10/25/16 07:56 40 MEQ Ipratropium [place] (Atrovent 0.02% 0.5MG/2.5ML Neb) 0.5 mg Q2H PRN INH 10/23/16 18:15 11/22/16 18:14 Levalbuterol (Xopenex 1.25MG/ 0.5ML Neb) 1.25 mg Q2H PRN INH 10/23/16 18:15 11/22/16 18:14 Sucralfate (Carafate Tab) 1 gm BID PRN PO 10/23/16 21:00 11/22/16 20:59 Ferrous Sulfate (Feosol Tab) 325 mg BIDM PO 10/24/16 16:45 11/23/16 16:44 10/25/16 07:57 325 MG Guaifenesin (Mucinex Contr Rel Tab) 1,200 mg Q12 PO 10/24/16 14:15 11/23/16 14:14 10/25/16 07:57 1,200 MG (Caren Gomez, PA-C) Objective Vital Signs Date Time Temp Pulse Resp B/P Pulse Ox O2 Delivery O2 Flow Rate FiO2 10/25/16 12:00 95 Room Air 10/25/16 11:44 36.3 107 16 113/77 93 Room Air 10/25/16 08:00 95 Room Air 10/25/16 07:57 36.8 88 21 133/72 95 Room Air 10/25/16 04:14 36.6 86 20 159/92 94 Room Air 10/25/16 04:00 Room Air 10/25/16 00:09 36.8 88 20 137/58 93 10/25/16 00:01 Room Air 3/14/17 20:00 Room Air 10/24/16 18:55 37.1 96 18 139/71 95 Room Air 10/24/16 16:00 Room Air 10/24/16 15:25 37.2 91 18 132/76 90 Room Air (Caren Gomez, SOWMYA-C) Physical Exam General Appearance: WD/WN, no apparent distress, + obese Eyes: sclerae normal ENT: hearing grossly normal Neck: supple, no JVD, trachea midline Respiratory/Chest: lungs clear, normal breath sounds, no respiratory distress, no accessory muscle use, + decreased breath sounds Cardiovascular: no gallop, no murmur, + irregularly irregular Abdomen: normal bowel sounds, non tender, soft Extremities: + pertinent finding (1+ pitting edema of ankles (improved from previous exams)) Neurologic/Psychiatric: alert, oriented x 3 Skin: normal color, warm/dry (Caren Gomez, SOWMYA-C) Laboratory Results Last 24 Hours Test 10/24/16 16:09 10/24/16 21:07 10/25/16 06:12 10/25/16 06:48 Bedside Glucose 259 mg/dl 166 mg/dl 80 mg/dl White Blood Count 16.81 K/uL Red Blood Count 4.91 M/uL Hemoglobin 9.6 g/dL Hematocrit 33.4 % Mean Corpuscular Volume 68.0 fL Mean Corpuscular Hemoglobin 19.6 pg Mean Corpuscular Hemoglobin Concent 28.7 g/dl Platelet Count 280 K/uL Mean Platelet Volume 9.6 fL Neutrophils (%) (Auto) 64.1 % Lymphocytes (%) (Auto) 24.3 % Monocytes (%) (Auto) 10.2 % Eosinophils (%) (Auto) 1.0 % Basophils (%) (Auto) 0.0 % Neutrophils # (Auto) 10.78 K/uL Lymphocytes # (Auto) 4.08 K/uL Monocytes # (Auto) 1.72 K/uL Eosinophils # (Auto) 0.16 K/uL Basophils # (Auto) 0.00 K/uL RDW Standard Deviation 54.4 fL RDW Coefficient of Variation 22.7 % Immature Granulocyte % (Auto) 0.4 % Immature Granulocyte # (Auto) 0.07 K/uL Polychromasia 1+ Hypochromasia PRESENT Anisocytosis PRESENT Microcytosis PRESENT Ovalocytes 1+ Prothrombin Time 19.5 SECONDS Prothromb Time International Ratio 1.8 Activated Partial Thromboplast Time 26.1 SECONDS Partial Thromboplastin Ratio 1.0 Sodium Level 142 mmol/L Potassium Level 4.3 mmol/L Chloride Level 105 mmol/L Carbon Dioxide Level 32 mmol/L Anion Gap 5.0 mmol/L Blood Urea Nitrogen 20 mg/dl Creatinine 0.63 mg/dl Est Creatinine Clear Calc Drug Dose 95.8 ml/min Estimated GFR () 105.3 Estimated GFR (Non- 90.9 BUN/Creatinine Ratio 31.5 Random Glucose 70 mg/dl Estimated Average Glucose 186 mg/dl Hemoglobin A1c 8.1 % Calcium Level 8.4 mg/dl Magnesium Level 2.3 mg/dl Iron Level 28 mcg/dl Total Iron Binding Capacity 354 mcg/dl Transferrin 266 mg/dl Transferrin % Saturation 8 % Ferritin 44.4 ng/ml Test 10/25/16 11:20 Bedside Glucose 288 mg/dl (Caren Gomez, NISHI) Assessment and Plan Acute Diastolic Congestive Heart Failure: - Echo - EF 60-65%; moderate dilation of the left atrium; mild to moderate tricuspid regurgitation - Patient has diuresed 6650 mL in total -- Patient reports dry weight of 252 pounds -almost at dry weight - Lasix 40 mg IV 1 dose - will continue to monitor diuresis and may add additional Lasix dose in the evening Asthma/Allergy/URI: Outpatient antibiotics and prednisone taper completed - Atrovent and Xopenex nebulizers - Mucinex 1200 mg BID and Abby 180 mg daily - Flonase daily PRN - Hycodan 5 mL Q4H PRN Microcytic Anemia: - Iron studies revealing low iron and low transferrin - Start ferrous sulfate 325 mg BID Chronic Atrial Fibrillation: Rate Controlled - Subtherapeutic INR at 1.8 - Coumadin 2 mg daily - Metoprolol succinate 100 mg BID Diabetes Mellitus: - Patient was recently changed to [place] but is reporting poor control - Lantus 52 units SC daily - Tighten sliding scale with SSI - goal 100-150; correction factor 25; carb ratio 8 -- Patient received Solu-Medrol 125 in ED - will expect some higher glucose readings HLD: - Zetia 10 mg daily and Simvastatin 80 mg daily Hypothyroidism: - Synthroid 175 mcg daily GERD: - Zantac 300 mg daily and Carafate 1 g BID PRN DVT Prophylaxis: - HEYDI/SCDs - Coumadin Code Status: FULL RESUSCITATION Disposition: - Possible discharge tomorrow to home (Caren Gomez, PAYanaC) Attending Attestation: Pt seen/examined, chart reviewed, care plan d/w SOWMYA Gomez. I agree with the josue components of her documentation. Again voices she is doing better. Still with cough and some sputum. Still w/ hoarse voice. Denies dyspnea. DOES report CPAP use for BIRDIE but was noncompliant with it the last few weeks because "every time I put my mask on I was coughing." VSS, HRs< 100 except > 100 this AM only O2 sats >90% in RA neg 6.6 L gen - obese neck - JVD present but improved heart - irregular, s1, s2 lungs - decreased BS bases, no rales, no increased WOB abd - obese, soft, no HSM ext - <1+ edema b/l labs - BMP nl including BUN and Cr microcytic anemia on CBC unchanged A/P: 1. acute/chronic diastolic CHF - improved. Another dose of IV lasix this AM. Likely will give 2nd dose this evening. BMP in am. Suspect poor compliance with CPAP, recent steroid use, salt intake, a. fib all contributed to this. 2. a. fib - rates controlled with BB most of the last 24 hours except this am. cont coumadin per home dosing. INR in am. cont BB if rates remain > 100 then add CCB 3. hypoalbuminemia - unsure if this represents protein calorie malnutrition or a cirrhotic state. may need w/u for liver disease. no proteinuria on u/a. recheck albumin in AM 4. uncontrolled T2DM - increase correction & carb ratio to 15 and 1:5, respectively. leave lantus as is. 5. microcytic anemia - needs outpatient EGD & colonoscopy. cont Fe supplementation cbc's are stable 6. BIRDIE - resume CPAP PT cleared patient for home when medically ready Federica CLAY MD (Demar Clay MD)
[2016-10-25] MEDS ORDERED: HYDROCODONE/HOMATROPINE SYRUP 5MG/1.5MG 5ML UDP PO PRN (15:15)
[2016-10-25] MEDS: WARFARIN SOD 2 MG TAB PO SCH (16:51)
[2016-10-25] MEDS: SIMVASTATIN 80 MG TAB PO SCH (20:51)
[2016-10-25] MEDS: EZETIMIBE 10MG TAB PO SCH (20:52)
[2016-10-25] MEDS: RANITIDINE HCL 150 MG TAB PO SCH (20:52)
[2016-10-25] MEDS: INSULIN GLARGINE SOLOSTAR 100 UNITS/ML 3 ML PEN SC SCH (21:03)
[2016-10-25] MEDS: HYDROCODONE/HOMATROPINE SYRUP 5MG/1.5MG 5ML UDP PO SCH (21:03)
[2016-10-26] VITALS (7 sets, daily range): BP systolic 107–144; BP diastolic 68–98; PULSE 84–103; TEMP 36.4–37; O2SAT 93–97
[2016-10-26] MEDS: LEVOTHYROXINE 175 MCG TAB PO SCH (06:05)
[2016-10-26 06:41] LABS: BASO % 0.1 %; BASO ABS # 0.01 K/uL (0-0.2); EOS % 1.4 %; HEMATOCRIT 36.5 % (37-47); IG% 0.4 %; LYMPH % 19.6 %; LYMPH ABS # 3.28 K/uL (1.2-3.4); MEAN CELL VOLUME 68.1 fL (80-100); MEAN CORPUSCULAR HEMOGLOBIN 19.8 pg (25-34); MEAN PLATELET VOLUME 9.7 fL (7.4-10.4); MONO % 11.8 %; NEUT % 66.7 %; PLATELET COUNT 236 K/uL (130-400); RED BLOOD COUNT 5.36 M/uL (4.2-5.4); WHITE BLOOD COUNT 16.75 K/uL (4.8-10.8)
[2016-10-26 06:52] LABS: INR 1.8 (0.9-1.1); PROTHROMBIN TIME (PATIENT) 19.4 SECONDS (9.0-12.0)
[2016-10-26 07:12] LABS: BUN/CREATININE RATIO 30.5 (10-20); CREATININE 0.75 mg/dl (0.60-1.20); POTASSIUM 4.2 mmol/L (3.5-5.1)
[2016-10-26 07:14] LABS: MAGNESIUM 2.3 mg/dl (1.8-2.4)
[2016-10-26] MEDS ORDERED: FUROSEMIDE INJ 40 MG in SYRINGE 0 ML IV ONE (07:30)
[2016-10-26] MEDS: INSULIN ASPART 100 UNITS/ML 3 ML PEN SC SCH ×4 (07:52→20:30)
[2016-10-26] MEDS: GUAIFENESIN 600 MG TABCR PO SCH ×2 (07:55→20:23)
[2016-10-26] MEDS: METOPROLOL SUCC 50MG EXT REL TAB PO SCH ×2 (07:55→20:23)
[2016-10-26] MEDS: DILTIAZEM HCL 30 MG TAB PO SCH ×3 (07:56→18:17)
[2016-10-26] MEDS: FERROUS SULFATE 325 MG TAB PO SCH ×2 (07:56→16:46)
[2016-10-26] MEDS: TOLTERODINE TARTRATE LA 4 MG CAPCR PO SCH (07:57)
[2016-10-26] MEDS: FEXOFENADINE HCL 180 MG TAB PO SCH (07:57)
[2016-10-26] MEDS: ASPIRIN 81 MG ECTAB PO SCH (07:57)
[2016-10-26] MEDS: POTASSIUM CHLORIDE 10 MEQ TABCR PO SCH ×2 (07:57→20:23)
[2016-10-26 09:02] LABS: ANISOCYTOSIS PRESENT; COMPLETE YES; MICROCYTOSIS PRESENT; OVALOCYTES 1+; POLYCHROMASIA 1+
[2016-10-26] MEDS: TRIAMCINOLONE ACET NASAL SPRAY 10.8ML BTL NAE SCH (09:36)
[2016-10-26] MEDS: WARFARIN SOD 3 MG TAB PO SCH (16:46)
[2016-10-26] MEDS: HYDROCODONE/HOMATROPINE SYRUP 5MG/1.5MG 5ML UDP PO SCH (20:22)
[2016-10-26] MEDS: SIMVASTATIN 80 MG TAB PO SCH (20:23)
[2016-10-26] MEDS: EZETIMIBE 10MG TAB PO SCH (20:23)
[2016-10-26] MEDS: RANITIDINE HCL 150 MG TAB PO SCH (20:23)
[2016-10-26] MEDS: INSULIN GLARGINE SOLOSTAR 100 UNITS/ML 3 ML PEN SC SCH (20:30)
--- NOTE | 2016-10-26 22:27 | Progress Note ---
Subjective Date of Service: Oct 26, 2016. Subjective Pt evaluation today including: conversation w/ patient, physical exam, chart review, lab review, review of inpatient medication list Pain: none PO Intake: normal Voiding: grijalva catheter in place tele overnight with regine samuel, rates at rest 90-low 100s she feels good with exception of ongoing hoarse voice -- however, it is improving still with cough but less so and was able to sleep last pm used home CPAP last pm no dyspnea no orthopnea Problem List Medical Problems: (1) Acute CHF Status: Acute (2) Cough Status: Acute (3) Hypertension Status: Acute Review of Systems Constitutional: No fever Respiratory: + cough, No dyspnea on exertion, No shortness of breath, No sputum , No wheezing Cardiac: No chest pain, No edema, No orthopnea Abdomen: No pain Objective Vital Signs Date Time Temp Pulse Resp B/P Pulse Ox O2 Delivery O2 Flow Rate FiO2 10/26/16 20:10 Room Air 10/26/16 19:15 36.8 102 22 137/91 95 Room Air 10/26/16 16:00 Room Air 10/26/16 15:25 36.6 84 19 144/68 97 Room Air 10/26/16 12:00 Room Air 10/26/16 12:00 Room Air CPAP 10/26/16 12:00 36.8 85 20 107/71 94 Room Air 10/26/16 08:00 Room Air CPAP 10/26/16 07:46 36.4 92 22 110/76 93 Room Air 10/26/16 04:26 37.0 94 18 129/75 95 Room Air 10/26/16 04:00 CPAP 10/26/16 00:07 36.7 103 18 126/98 96 BiPAP 10/26/16 00:00 CPAP Physical Exam General Appearance: no apparent distress, + obese ENT: pharynx normal, + muffled/hoarse voice Neck: no JVD Respiratory/Chest: lungs clear, no respiratory distress, no accessory muscle use Cardiovascular: no gallop, no murmur, + irregularly irregular Abdomen: normal bowel sounds, non tender, soft, no organomegaly Extremities: no pedal edema Neurologic/Psychiatric: alert, oriented x 3 Laboratory Results Last 24 Hours Test 10/26/16 06:06 10/26/16 06:53 10/26/16 07:05 10/26/16 10:56 White Blood Count 16.75 K/uL Red Blood Count 5.36 M/uL Hemoglobin 10.6 g/dL Hematocrit 36.5 % Mean Corpuscular Volume 68.1 fL Mean Corpuscular Hemoglobin 19.8 pg Mean Corpuscular Hemoglobin Concent 29.0 g/dl Platelet Count 236 K/uL Mean Platelet Volume 9.7 fL Neutrophils (%) (Auto) 66.7 % Lymphocytes (%) (Auto) 19.6 % Monocytes (%) (Auto) 11.8 % Eosinophils (%) (Auto) 1.4 % Basophils (%) (Auto) 0.1 % Neutrophils # (Auto) 11.19 K/uL Lymphocytes # (Auto) 3.28 K/uL Monocytes # (Auto) 1.97 K/uL Eosinophils # (Auto) 0.23 K/uL Basophils # (Auto) 0.01 K/uL RDW Standard Deviation 54.6 fL RDW Coefficient of Variation 23.0 % Immature Granulocyte % (Auto) 0.4 % Immature Granulocyte # (Auto) 0.07 K/uL Nucleated RBC Absolute Count (auto) 0.04 K/uL Nucleated Red Blood Cells % 0.2 % Polychromasia 1+ Anisocytosis PRESENT Microcytosis PRESENT Ovalocytes 1+ Prothrombin Time 19.4 SECONDS Prothromb Time International Ratio 1.8 Sodium Level 139 mmol/L Potassium Level 4.2 mmol/L Chloride Level 101 mmol/L Carbon Dioxide Level 32 mmol/L Anion Gap 6.0 mmol/L Blood Urea Nitrogen 23 mg/dl Creatinine 0.75 mg/dl Est Creatinine Clear Calc Drug Dose 79.4 ml/min Estimated GFR () 93.6 Estimated GFR (Non- 80.8 BUN/Creatinine Ratio 30.5 Random Glucose 175 mg/dl Calcium Level 9.0 mg/dl Magnesium Level 2.3 mg/dl Albumin 3.0 gm/dl Bedside Glucose 184 mg/dl 178 mg/dl 296 mg/dl Test 10/26/16 16:22 10/26/16 19:59 Bedside Glucose 190 mg/dl 222 mg/dl Assessment and Plan 71yo female with: 1. acute/chronic diastolic CHF - resolved. Stop IV lasix. Suspect poor compliance with CPAP, recent steroid use, salt intake, a. fib, anemia all contributed to this. Either use lasix 20mg once daily at d/c OR weight-based usage. 2. a. fib - rates at rest on high end of normal. Start diltiazem 30mg q6h. Cont BB twice daily. Cont coumadin but use 3mg daily since INR is persistently <2. 3. hypoalbuminemia - unsure if this represents protein calorie malnutrition or a cirrhotic state. may need w/u for liver disease. no proteinuria on u/a. rechecked albumin today and is now 3 but received IV albumin earlier this stay. will need outpatient recheck. 4. uncontrolled T2DM - overall control improving but not optimal. follow another 24 hours and make adjustments tomorrow. 5. microcytic anemia - needs outpatient EGD & colonoscopy. cont Fe supplementation cbc's are stable 6. BIRDIE - resumed CPAP 7. recent laryngotracheobronchitis - in resolution phase. Received steroids/abx as outpatient. had similar illness. Viral in etiology more than likely. Mucinex, nasal spray, etc. 8. hypothyroidism - compensated. 9. leukocytosis - improving; likely 2nd to recent steroid usage. cleared by PT for home left message for tonight on answering machine d/c grijalva check HRs with walking to ensure adequate HR control w/ activity hopefully home tomorrow Discharge planning: home
[2016-10-27] MEDS: DILTIAZEM HCL 30 MG TAB PO SCH ×2 (00:29→06:00)
[2016-10-27 03:40] VITALS: BP 113/72; PULSE 79; TEMP 36.8; O2SAT 96
[2016-10-27] MEDS: LEVOTHYROXINE 175 MCG TAB PO SCH (06:00)
[2016-10-27 06:33] LABS: INR 1.9 (0.9-1.1)
[2016-10-27 06:59] LABS: BUN/CREATININE RATIO 27.8 (10-20); CALCIUM 8.8 mg/dl (8.5-10.1); CREATININE 0.75 mg/dl (0.60-1.20); POTASSIUM 4.9 mmol/L (3.5-5.1)
[2016-10-27 07:30] VITALS: BP 104/89; PULSE 96; TEMP 36.7; O2SAT 95
[2016-10-27] MEDS: FERROUS SULFATE 325 MG TAB PO SCH (08:12)
[2016-10-27] MEDS: TRIAMCINOLONE ACET NASAL SPRAY 10.8ML BTL NAE SCH (08:13)
[2016-10-27] MEDS: GUAIFENESIN 600 MG TABCR PO SCH (08:13)
[2016-10-27] MEDS: ASPIRIN 81 MG ECTAB PO SCH (08:13)
[2016-10-27] MEDS: FEXOFENADINE HCL 180 MG TAB PO SCH (08:13)
[2016-10-27] MEDS: METOPROLOL SUCC 50MG EXT REL TAB PO SCH (08:14)
[2016-10-27] MEDS: TOLTERODINE TARTRATE LA 4 MG CAPCR PO SCH (08:14)
[2016-10-27] MEDS: INSULIN ASPART 100 UNITS/ML 3 ML PEN SC SCH ×2 (08:20→11:52)
--- NOTE | 2016-10-27 09:42 | Discharge Instructions ---
Discharge Instructions Date of Service Oct 27, 2016. (Caren Gomez PA-C) Admission Reason for Admission: Atrial Fibrillation, Chf Exacerbation (Caren Gomez PA-C) Discharge Discharge Diagnosis / Problem: Acute Diastolic Dysfunction (Caren Gmoez PA-C) Discharge Goals Goal(s): Decrease discomfort, Improve function, Improve disease control (Caren Gomez PA-C) Activity Recommendations Activity Limitations: resume your previous activity . (Caren Gomez PA-C) Instructions / Follow-Up Instructions / Follow-Up Acute on Chronic Diastolic Congestive Heart Failure: - This is likely to the recent need for steroids, illness, and atrial fibrillation - We will give you a prescription for Lasix 20 mg to take as needed based on your weight -- You will need to take your weight daily and if you notice a 3-5 pound weight gain take one pill -- Due to this being a water pill we will give you a prescription for a potassium supplement - take the potassium pill only when you take a Lasix pill Atrial Fibrillation: - Continue your Metoprolol and we have added Cardizem CD 120 mg take one tablet daily -- This medication will help control your heart rate with the atrial fibrillation - Continue your Coumadin. Take 3 mg tonight as your INR is 1.9 today. -- Please check your INR tomorrow and call in the number as you normally do and further adjustments can be made at that time Hypoalbuminemia (Low Blood Protein Level) - this may be from low oral intake of protein or malnutrition versus a liver condition - Would recommend follow-up with your family doctor to evaluate your liver function and repeat an albumin level in the future Diabetes: HbA1c of 8.1 - Take Lantus 52 units at bedtime. Continue to check you glucose readings - Continue home insulin sliding scale of 15 units with each meal and additional coverage as necessary. Microcytic Anemia - Likely Iron Deficiency - Recommend outpatient EGD and Colonoscopy to rule out other causes of low iron stores - Continue iron supplementation and recommend regular blood work with family doctor Obstructive Sleep Apnea: Would recommend compliance with CPAP at night Sinus Congestion: - This is likely viral and appears to be improving - You may continue Mucinex to help with sputum production Call your Primary Care doctor if any of the following symptoms or problems start or get worse: * Shortness of breath or difficulty breathing * Wake up at night short of breath * Chest pain * Cough * Swelling of your hands, feet, or legs * More fatigued or tired with your normal activity * Palpitations - sudden fast heart beats WEIGHT * Weigh yourself every morning after using the bathroom. * Use the same scale. * Wear the same amount of clothing. * Write your weight down on a chart. * Call your Primary Care doctor if you gain more than 2-3 pounds in 1-2 days. MEDICATIONS * Use this discharge instruction sheet for medication instructions. * Take your medications at the time your doctor ordered. * Do not skip a dose of your medicines. * If you miss a dose of medicine, take it as soon as possible, but DO NOT DOUBLE A DOSE. * Read your medicine information when you get home. * Know all of the side effects of your medicine. If in doubt, ask your pharmacist * Call your Primary Care doctor's office if you have any side effects. * Be sure all of your doctors know what medicine and herbs you take (including cold, flu, and herbal medicine). Take the following with you to your follow-up doctor appointments: * Weight Chart * Medication List * List of questions Do not drink excessive alcohol, beer or wine. (Caren Gomez PA-C) Current Hospital Diet Patient's current hospital diet: Diabetes Type 1 Diet (Caren Gomez PA-C) Discharge Diet Recommended Diet: Diabetes Type 1 Diet (Caren Gomez PA-C) Pending Studies Studies pending at discharge: no (Caren Gomez PA-C) Laboratory Results Hemoglobin A1c Test 10/25/16 06:12 Range/Units Estimated Average Glucose 186 mg/dl Hemoglobin A1c 8.1 H 4.5-5.6 % (Caren Gomez PA-C) Medical Emergencies . Who to Call and When: Call 911 or go to the Emergency Room if: * If at any time you feel your situation is an emergency * You have tightness or pain in your chest that does not go away with rest or Nitroglycerin * You are very short of breath even with rest . (Caren Gomez PA-C) Non-Emergent Contact Non-Emergency issues call your: Primary Care Provider Call Non-Emergent contact if: you have a fever, you have any medication questions . (Caren Gomez PA-C) . "Provider Documentation" section prepared by Caren Gomez. (Caren Gomez PA-C) Attending Attestation: Pt seen/examined and patient care plan d/w SOWMYA Gomez on day of discharge. I agree with her discharge instructions as outlined. Demar Vann MD (Demar Vann MD) VTE Core Measure Inpt VTE Proph given/why not?: Warfarin (Coumadin) (Caren Gomez PA-C)
[2016-10-27] MEDS ORDERED: DILTIAZEM HCL 120 MG CAPCR PO SCH (10:00)
[2016-10-27 10:55] VITALS: BP 108/75; PULSE 89; TEMP 36.4; O2SAT 97
[2016-10-27] MEDS ORDERED: GFNSR600 PO (14:52)
[2016-10-27] MEDS ORDERED: CRDCD120 PO (14:52)
[2016-10-27] MEDS ORDERED: FRRS300 PO (14:52)
[2016-10-27] MEDS ORDERED: INSDGIPEN SC (14:52)
[2016-10-27] MEDS ORDERED: MCRK20 PO (14:58)
[2016-10-27] MEDS ORDERED: FURO-85 PO (14:58)
[2016-10-27 16:02] VITALS: BP 108/75; PULSE 89; TEMP 36.4; O2SAT 97
[2016-10-27] MEDS: WARFARIN SOD 3 MG TAB PO SCH (16:17)
--- NOTE | 2016-10-27 16:33 | Discharge Summary ---
Discharge Summary Date of Service Oct 27, 2016. (Caren Gomez PA-C) Discharge Summary Admission Date: Oct 23, 2016 at 16:24 Discharge Date: Oct 27, 2016 Discharge Disposition: Home Principal Diagnosis: Acute on Chronic Diastolic Congestive Heart Failure Problems/Secondary Diagnoses: Medical Problems: (1) Asthma (2) Atrial fibrillation (3) CHF exacerbation (4) Diabetes (5) Diastolic congestive heart failure (6) Heart disease (7) Iron deficiency anemia Surgical Problems: (1) H/O percutaneous transluminal coronary angioplasty (2) S/P CABG (coronary artery bypass graft) (3) S/P CABG (coronary artery bypass graft) Immunizations: Have You Had Influenza Vaccine: Yes Influenza Vaccine Date: Apr 24, 2011 History of Tetanus Vaccine?: Yes Tetanus Immunization Date: Aug 24, 2009 History of Pneumococcal: Yes Pneumococcal Date: Apr 24, 2010 History of Hepatitis B Vaccine: No Procedures: 1. CHEST ONE VIEW PORTABLE CLINICAL HISTORY: EVALUATE RESPIRATORY DISTRESS. DYSPNEA dyspnea COMPARISON STUDY: 10/17/2016 FINDINGS: Mild cardiomegaly. Prior median sternotomy. Prominent pulmonary vasculature. IMPRESSION: Early congestive failure 2. Echocardiogram -- EF 60-65% -- Moderately dilated L atrium -- mild to moderate tricuspid regurgitation Consultations: 1. PT/OT (Caren Gomez PA-C) Problems/Secondary Diagnoses: BIRDIE morbid obesity with BMI 48 resolving laryngotracheobronchitis hypothyroidism (Demar Vann MD) Medication Reconciliation New Medications: Furosemide (Lasix) 20 Mg Tab 20 MG PO DAILY PRN for Weight Gain, #30 TAB Take one tablet if you gain 3-5 lbs. Potassium Chloride (Klor-Con M20) 20 Meq Tabcr 20 MEQ PO DAILY PRN for With Lasix, #30 Only take if you need to take Lasix Diltiazem HCl (Diltiazem Cd) 120 Mg Capcr 120 MG PO QAM for 30 Days Ferrous Sulfate (Ferrous Sulfate) 325 Mg Tab 325 MG PO BIDM for 30 Days, TAB Guaifenesin Ext Rel (Mucinex Ext Rel) 600 Mg Tabcr 1200 MG PO Q12 for 7 Days Insulin Glargine (Lantus Solostar) 100 Unit/Ml Inj 52 UNIT SC QPM for 15 Days Continued Medications: Albuterol Sulfate (Proventil Hfa) 108 Mcg/Act Aer 2 PUFF INH Q6 PRN for SOB/Wheezing Aspirin (Aspirin EC Low Dose) 81 Mg Ectab 81 MG PO DAILY Cyanocobalamin (Cyanocobalamin) 1,000 Mcg/Ml Inj 1000 MCG INJ MONTHLY Ezetimibe (Zetia) 10 Mg Tab 10 MG PO HS, 0 Refills Fexofenadine Hcl (Abby Allergy) 180 Mg Tab 180 MG PO DAILY for 14 Days, #14 TAB 2 Refills Fluticasone Propionate (Flovent Hfa) Unknown Strength Aero Unknown Dose INH BID for 30 Days, #10.6 GM 2 Refills TAKES ONLY NEEDED Fluticasone Propionate (Nasal) (Flonase Allergy Relief) 50 Mcg/Act Spr 1 SPRAY REBEKAH DAILY PRN for ALLERGIES Hydrocodone W/ Homatropine (Hycodan 5/1.5MG 5 Ml) 1 Syp Syp 5 ML PO Q4H, ML Insulin Aspart (Novolog) 100 Units/Ml Inj 15 UNITS SQ AC USES SLIDING SCALE OF 1 UNIT FOR EVERY 6 GRAMS OF CARBOHYDRATES Levothyroxine Sodium (Synthroid) 175 Mcg Tab 175 MCG PO DAILY, TAB Metoprolol Succ (Toprol Xl) (Toprol-Xl ) 100 Mg Tabcr 100 MG PO BID, 0 Refills Ranitidine (Zantac) 150 Mg Tab 300 MG PO HS, 0 Refills Simvastatin (Zocor) 80 Mg Tab 80 MG PO QPM, 0 Refills Sucralfate (Carafate) 1 Gm Tab 1 GM PO PRN, TAB Tolterodine Tartrate (Detrol La) 4 Mg Cap 4 MG PO DAILY, CAP Warfarin Sod (Coumadin) 1 Mg Tab 1 MG PO 6XWK TAKES ON SUNDAY, SUNDAY, SUNDAY, SUNDAY, SUNDAY AND SUNDAY Warfarin Sod (Coumadin) 2 Mg Tab 2 MG PO WK TAKES 2 MG ONLY ON FRIDAYS Discontinued Medications: Insulin Glargine (Toujeo Solostar) 300 Unit/Ml Inj 42 UNITS SC QPM Levofloxacin (Levaquin) 750 Mg Tab 750 MG PO DAILY, TAB Polysaccharide Iron Complex (Ferrex 150) 150 Mg Cap 150 MG PO DAILY Prednisone (Prednisone) 20 Mg Tab 20 MG PO UD, TAB TAPERED DOSE 3 TABS DAILY X3 DAYS 2 TABS DAILY X3 DAYS 1 TAB DAILY X3 DAYS Discharge Exam Review of Systems: Constitutional: No chills, No fever Eyes: No worsening of vision ENT: + problem reported (hoarse voice), No nasal symptoms, No sore throat, No trouble swallowing Respiratory: + cough, + sputum, No dyspnea at rest, No dyspnea on exertion Cardiovascular: No chest pain, No edema Abdomen: No constipation, No diarrhea, No nausea, No pain, No vomiting Musculoskeletal: + swelling (baseline), No calf pain Genitourinary - Female: No dysuria Neurologic: No vertigo, No weakness Integumentary: + problem reported (stable diffuse abdominal ecchymosis), No rash Physical Exam: General Appearance: WD/WN, no apparent distress, + obese Eyes: sclerae normal ENT: hearing grossly normal Neck: supple, no JVD, trachea midline Respiratory/Chest: lungs clear, normal breath sounds, no respiratory distress, no accessory muscle use, + decreased breath sounds Cardiovascular: no gallop, no murmur, + irregularly irregular Abdomen / GI: normal bowel sounds, non tender, soft Extremities: no calf tenderness, + swelling (trace bilateral pitting edema of ankles with L slighty worse than R) Neurologic/Psychiatric: alert, oriented x 3 Skin: normal color, warm/dry (Caren Gomez, NISHI) Hospital Course ADMISSION: The patient is a 71-year-old female presents emergency department with worsening swelling of bilateral lower extremities with past 4 days. Her symptoms initially began about 3 weeks ago when she had what she thought was a cold, with chest congestion, productive cough and some foot swelling at that time. She's never had leg swelling until now. She was initially treated with antibiotics, prednisone, and inhaler, nebulizer treatments and a cough syrup with codeine. HOSPITAL COURSE: Ms. Strauss was admitted to telemetry due to acute on chronic diastolic congestive heart failure. She was initially treated with albumin and IV Lasix which resulted in approximately 6 L of fluid diuresed overnight. Upon continuing examinations she was treated with additional Lasix IV as necessary. She has diuresed a total of 9 L during this admission. Patient reports her dry weight is approximately 250 pounds and she was discharged at 246 pounds. An echocardiogram was obtained that shows an ejection fraction of 60-65%, moderate dilation of the left atrium, and mild to moderate tricuspid regurgitation. Suspicion for acute illness, recent prednisone, atrial fibrillation, and noncompliance with CPAP may have contributed. She was provided a prescription for Lasix 20 mg to use as needed if she should gain 3-5 pounds. She was also provided a prescription for potassium to use if she needs to utilize Lasix. It was emphasized to perform daily weights to monitor for fluid overload. She remained in atrial fibrillation during admission but was largely rate controlled. However, pulse is largely in the 90s and occasionally in the low 100s especially with ambulation. She was initiated on Diltiazem which showed improvement. She was discharged home with a prescription for Diltiazem CD 120 mg daily. INR was monitored and subtherapeutic. She was instructed to take Coumadin 3 mg tonight and check her INR tomorrow. Patient utilizes at home testing with electronic transfer information to Dr. Peña. Routine laboratories were obtained. Significant findings were microcytic anemia that appears to be iron deficiency. She was started on ferrous sulfate 325 mg BID. Recommendation for outpatient EGD and colonoscopy. Patient with poorly controlled diabetes. She reports she was recently converted to Toujeo but continues to have poor control and would like to be placed back on Lantus. At this time we will hold her Toujeo. She was instructed to take Lantus 52 units at bedtime and continue her sliding scale with 15 units at each meal and correction as necessary. She has a follow-up appointment with endocrinology on October 30. Also presented with symptoms of laryngotracheobronchitis which symptoms are beginning to improve. She was treated outpatient with antibiotics and steroids and no further treatment was warranted. Code Status: FULL RESUSCITATION Disposition: - Follow-up appointment with Dr. Queen on 11/01/2016 - Follow-up appointment with cardiology, Davian Guaman PAC on 11/21/2016 Total Time Spent: Greater than 30 minutes This includes examination of the patient, discharge planning, medication reconciliation, and communication with other providers. (Caren Gomez, NISHI) Attending Attestation: Pt seen & examined on day of discharge and discharge care plan d/w SOWMYA Gomez. I agree with the josue components of her discharge summary. 71yo female with T2DM, morbid obesity, BIRDIE, chronic a. fib on coumadin, CAD, and recent laryngotracheobronchitis who presented with weight gain, worsening LE edema, and increasing dyspnea. Clinical presentation and chest x-ray were consistent with acute/chronic diastolic CHF. She was diuresed aggressively during her stay with improvement in all pulmonary symptoms. We suspected that her decompensation was multifactorial including poor rate control for her a. fib, recent illness treated with prednisone (salt/water retention), noncompliance with CPAP for BIRDIE, and perhaps dietary indiscretion. Cardizem was added for improved a. fib rate control. She will remain on beta new as well. Lsix will be used on a weight-based scale. During her stay it was discovered that she had iron deficiency anemia. Hemoglobin was stable and she had no overt GI bleeding. Discharge hemoglobin was 10.6. Ferrous sulfate was recommended at discharge. She was advised to seek GI consultation for consideration of EGD and colonoscopy. She voiced understanding of this recommendation. Discharge exam: gen - NAD, obese neck - no JVD mouth - MMM voice - hoarse heart - irregular, s1, s2 lungs - CTA b/l abd - soft, NT, no HSM ext - trace edema left, no edema on right; pulses 2+ b/l Demar Vann MD Total Time Spent: Greater than 30 minutes (Demar Vann MD) Discharge Instructions Please refer to the electronic Patient Visit Report (Discharge Instructions) for additional information. (Caren Gomez, PA-C) Additional Copies To aDrion Peña M.D.; Chris Queen M.D.
[2017-04-30] MEDS ORDERED: [UNRECOGNIZED DRUG - OTHER] PO (08:56)
[2017-04-30] MEDS ORDERED: INSU1.2I SQ (08:56)
[2017-04-30] MEDS ORDERED: FRRS300 PO (08:56)
[2017-04-30] MEDS ORDERED: CLOBETASOL TOP (08:59)
[2017-04-30] MEDS ORDERED: METR0.754 TOP (08:59)
[2017-04-30] MEDS ORDERED: TRMO115 TOP (08:59)
[2017-04-30] MEDS ORDERED: FURO-85 PO (08:59)
[2017-05-10] MEDS ORDERED: ACET-24 PO (21:36)
[2017-05-10] MEDS ORDERED: RXC5 PO (21:36)
== END 2016-10-27 16:19 | disposition home or self-care (01) | DRG 293 ==
LOC: ENRESERVTM → ENRESERVDT → C.EDB 12:33 → C.2E 16:24
PROVIDERS: ADMIT Hospitalist; ATTEND Internal Medicine
DX: I50.31 Acute diastolic (congestive) heart failure (principal); I48.91 Unspecified atrial fibrillation; J45.909 Unspecified asthma, uncomplicated; E11.9 Type 2 diabetes mellitus without complications; I51.9 Heart disease, unspecified; E78.00 Pure hypercholesterolemia, unspecified; D50.9 Iron deficiency anemia, unspecified; E78.5 Hyperlipidemia, unspecified; E88.09 Other disorders of plasma-protein metabolism, not elsewhere classified; Z98.61 Coronary angioplasty status; Z79.01 Long term (current) use of anticoagulants; Z79.82 Long term (current) use of aspirin; Z82.49 Family history of ischemic heart disease and other diseases of the circulatory system

== ENCOUNTER → 2016-11-17 | Outpatient (CLI) | payer OTHER ==
[~2016-11-17] VITALS: Ht 152.4 cm; Wt 119.4 kg
[~2016-11-17] MED LIST changes: +ACET-24 PO; +CLOBETASOL TOP; +DILT120C50 PO; +FRRS300 PO; +FURO-85 PO; +GFNSR600 PO; +HYDR5SYP11 PO; -INSDGI SC; +INSDGIPEN SC; +INSU1.2I SQ; +MCRK20 PO; +METO100T44 PO; -METO1TAB69 PO; +METR0.754 TOP; -POLY150C4 PO; +RXC5 PO; +TRMO115 TOP; +[UNRECOGNIZED DRUG - OTHER] PO
[2016-11-17 12:52] VITALS: BP 143/79; PULSE 87; Ht 152.4 cm; Wt 119.4 kg
== END | disposition home or self-care (01) ==
LOC: C.NEUR 12:22
PROVIDERS: ATTEND Physician Assistant
DX: G47.33 Obstructive sleep apnea (adult) (pediatric) (principal)

== ENCOUNTER → 2016-11-29 | Outpatient (CLI) | payer OTHER ==
[2016-11-29 12:47] LABS: BASO % 0.5 %; BASO ABS # 0.04 K/uL (0-0.2); EOS % 4.2 %; HEMATOCRIT 43.5 % (37-47); IG% 0.2 %; LYMPH % 18.9 %; LYMPH ABS # 1.62 K/uL (1.2-3.4); MEAN CELL VOLUME 81.6 fL (80-100); MEAN CORPUSCULAR HGB CONC 29.4 g/dl (32-36); MONO % 10.5 %; NEUT % 65.7 %; PLATELET COUNT 218 K/uL (130-400); RED BLOOD COUNT 5.33 M/uL (4.2-5.4); WHITE BLOOD COUNT 8.59 K/uL (4.8-10.8)
[2016-11-29 13:11] LABS: ANISOCYTOSIS PRESENT; COMPLETE YES; POIKILOCYTOSIS PRESENT
[2016-11-29 13:17] LABS: ALT/SGPT 20 U/L (12-78); AST/SGOT 19 U/L (15-37); BLOOD UREA NITROGEN 12 mg/dl (7-18); BUN/CREATININE RATIO 15.8 (10-20); CALCIUM 9.1 mg/dl (8.5-10.1); CARBON DIOXIDE 26 mmol/L (21-32); CHLORIDE 106 mmol/L (98-107); CREATININE 0.74 mg/dl (0.60-1.20); GLUCOSE 238 mg/dl (70-99); POTASSIUM 4.5 mmol/L (3.5-5.1); SODIUM 140 mmol/L (136-145)
[2016-11-29 13:28] LABS: ALB/GLOB RATIO 0.8 (0.9-2); ALKALINE PHOSPHATASE 106 U/L (45-117); CHOLESTEROL 127 mg/dl (0-200); CHOLESTEROL/HDL RATIO 2.2; HDL CHOLESTEROL 59 mg/dl; LDL CHOLESTEROL CALCULATED 49 mg/dl; THYROID STIMULATING HORMONE 0.897 uIu/ml (0.300-4.500); TRIGLYCERIDES 97 mg/dl (0-150); VERY LOW DENSITY LIPOPROT CALC 19 mg/dl
[2016-11-29 14:11] LABS: ESTIMATED AVERAGE GLUCOSE 146 mg/dl; HA1C FLAG Normal (Normal)
--- NOTE | 2016-12-04 12:05 | CODING QUERY MEDICAL NECESSITY ---
SUPPORTING DIAGNOSIS NEEDED A supporting diagnosis is required for the test/procedure performed on this patient in order for us to be reimbursed by the patient's insurance. Please provide a supporting diagnosis for the following test/procedure listed below next to the test name along with your signature. *If there is no additional diagnosis for this patient that would support the following test/procedure please document that below next to the test/procedure. Test(s)/Procedure(s) that require a supporting diagnosis: DOS 11/29 * Vitamin B12 DIAGNOSIS: Provider Signature: Date: Thank you Annabel Maria Health Information Management Once completed, please kindly fax back to [phone] For questions please call [phone]
== END | disposition home or self-care (01) ==
LOC: C.LABBFT 08:06
PROVIDERS: ATTEND Internal Medicine
DX: E10.9 Type 1 diabetes mellitus without complications (principal); D64.9 Anemia, unspecified

== ENCOUNTER → 2016-11-30 | Outpatient (CLI) | payer OTHER ==
[2016-11-30 19:03] LABS: RATIO 18.9 mcg/mg (0-30.0)
== END | disposition home or self-care (01) ==
LOC: C.LABSPEC 18:01
PROVIDERS: ATTEND Internal Medicine
DX: E10.9 Type 1 diabetes mellitus without complications (principal)

== ENCOUNTER → 2017-01-29 | Outpatient (CLI) | payer OTHER ==
[2017-01-29 18:15] LABS: URINE APPEARANCE CLOUDY (CLEAR); URINE BILIRUBIN NEG (NEG); URINE COLOR YELLOW; URINE EPITHELIAL CELL AUTO >30 /lpf (0-5); URINE NITRITE NEG (NEG); URINE PH 5.5 (4.5-7.5); UROBILINOGEN NEG (NEG)
[2017-01-29 18:21] LABS: MANUAL MICROSCOPIC REQUIRED? NO; REVIEW REQ? NO
== END | disposition home or self-care (01) ==
LOC: C.LABSPEC 17:40
PROVIDERS: ATTEND Internal Medicine
DX: N39.0 Urinary tract infection, site not specified (principal)

== ENCOUNTER → 2017-03-12 | Outpatient (CLI) | payer OTHER ==
[~2017-03-12] MED LIST changes: +CRDCD120 PO; -DILT120C50 PO; -METO100T44 PO; +METO1TAB69 PO
[2017-03-12 14:14] LABS: URINE APPEARANCE CLOUDY (CLEAR); URINE BILIRUBIN NEG (NEG); URINE COLOR YELLOW; URINE NITRITE NEG (NEG); URINE SPECIFIC GRAVITY 1.032 (1.000-1.030); UROBILINOGEN NEG (NEG)
[2017-03-12 14:21] LABS: MANUAL MICROSCOPIC REQUIRED? NO; REVIEW REQ? YES
== END | disposition home or self-care (01) ==
LOC: C.LABSPEC 12:49
PROVIDERS: ATTEND Physician Assistant Medical
DX: R30.0 Dysuria (principal)

== ENCOUNTER → 2017-03-30 | Outpatient (CLI) | payer OTHER ==
[2017-03-30 12:25] LABS: URINE APPEARANCE CLOUDY (CLEAR); URINE BILIRUBIN NEG (NEG); URINE COLOR YELLOW; URINE EPITHELIAL CELL AUTO >30 /lpf (0-5); URINE NITRITE NEG (NEG); URINE PH 5.5 (4.5-7.5); URINE SPECIFIC GRAVITY 1.024 (1.000-1.030); UROBILINOGEN NEG (NEG)
[2017-03-30 12:31] LABS: MANUAL MICROSCOPIC REQUIRED? NO; REVIEW REQ? NO
== END | disposition home or self-care (01) ==
LOC: C.LABBFT 10:41
PROVIDERS: ATTEND Physician Assistant Medical
DX: N39.0 Urinary tract infection, site not specified (principal)

== ENCOUNTER → 2017-04-11 | Outpatient (CLI) | payer OTHER ==
--- NOTE | 2017-04-11 14:14 | MAMMOGRAPHY REPORT ---
BILATERAL DIGITAL SCREENING MAMMOGRAM WITH CAD: 04/11/2017 TECHNIQUE: Current study was also evaluated with a Computer Aided Detection (CAD) system. Bilateral CC and MLO views were obtained. COMPARISON: Comparison is made to exams dated: 04/10/2016 mammogram, 03/12/2015 mammogram, 03/07/2013 m ammogram, 03/01/2011 mammogram, 03/10/2014 mammogram, and 03/12/2013 mammogram - [facility] enter. BREAST COMPOSITION: The tissue of both breasts is almost entirely fatty. FINDINGS: No suspicious masses, calcifications, or areas of architectural distortion are noted in ei ther breast. There has been no significant interval change compared to prior exams. Scattered bilater al benign-appearing calcifications are not significantly changed. IMPRESSION: ACR BI-RADS CATEGORY 2: BENIGN There is no mammographic evidence of malignancy. A 1 year screening mammogram is recommended. The pa tient will receive written notification of the results. Approximately 10% of breast cancers are not detected with mammography. A negative mammographic report should not delay biopsy if a clinically suggestive mass is present. Ebony Pacheco M.D. /:04/11/2017 10:01:58 Carbide Grinder: Lilibeth LEVINE(Kameron)(Luda), [facility] letter sent: Normal 1/2 BI-RADS Code: ACR BI-RADS Category 2: Benign
== END | disposition home or self-care (01) ==
LOC: C.MAMM 09:36
PROVIDERS: ATTEND Obstetrics & Gynecology
DX: Z12.31 Encounter for screening mammogram for malignant neoplasm of breast (principal)

== ENCOUNTER 2017-05-09 09:44 | Inpatient (IN) | payer OTHER ==
[2017-04-30 09:00] VITALS: BMI 50.0
--- NOTE | 2017-04-30 09:46 | PAT Medication Instructions ---
Service Date Apr 30, 2017. Current Home Medication List Albuterol Sulfate (Proventil Hfa), 2 PUFF INH Q6 PRN for SOB/Wheezing Aspirin (Aspirin EC Low Dose), 81 MG PO QAM Cyanocobalamin (Cyanocobalamin), 1,000 MCG INJ MONTHLY Diltiazem HCl (Diltiazem Cd), 120 MG PO QAM Ezetimibe (Zetia), 10 MG PO HS Ferrous Sulfate (Ferrous Sulfate), 1 TAB PO BID Fexofenadine Hcl (Abby Allergy), 180 MG PO QAM Fluticasone Propionate (Flovent Hfa), Unknown Dose INH BID Fluticasone Propionate (Nasal) (Flonase Allergy Relief), 1 SPRAY REBEKAH DAILY PRN for ALLERGIES Furosemide (Lasix), 20 MG PO PRN PRN for FLUID RETENTION Insulin Aspart (Novolog), 15 UNITS SQ AC Insulin Glargine (Toujeo Solostar), 52 UNITS SQ HS Levothyroxine Sodium (Synthroid), 175 MCG PO QAM Metoprolol Succ (Toprol Xl) (Toprol-Xl ), 100 MG PO BID Metronidazole (Topical) (Metrocream), Unknown Dose TOP UD PRN for PRN Potassium Chloride (Klor-Con M20), 20 MEQ PO DAILY PRN for With Lasix Ranitidine (Zantac), 300 MG PO HS Simvastatin (Zocor), 80 MG PO QPM Sucralfate (Carafate), 1 GM PO PRN Triamcinolone Acet (Triamcinolone Acetonide), Unknown Dose TOP UD PRN for PRN Warfarin Sod (Coumadin), 1 MG PO QPM [Crobetasol Cream ], Unknown Dose TOP UD PRN for PRN [hydrocone APAP ], 1-2 TAB PO HS PRN for Pain Medication Instructions For Your Scheduled Surgery - Check with surgeon for instructions: Warfarin Sod (Coumadin), 1 MG PO QPM - Hold the following medications 24 hours prior to surgery: [Crobetasol Cream ], Unknown Dose TOP UD PRN for PRN Triamcinolone Acet (Triamcinolone Acetonide), Unknown Dose TOP UD PRN for PRN Metronidazole (Topical) (Metrocream), Unknown Dose TOP UD PRN for PRN - Hold the following medications the morning of surgery: Sucralfate (Carafate), 1 GM PO PRN Potassium Chloride (Klor-Con M20), 20 MEQ PO DAILY PRN for With Lasix Insulin Aspart (Novolog), 15 UNITS SQ AC Furosemide (Lasix), 20 MG PO PRN PRN for FLUID RETENTION Fexofenadine Hcl (Abby Allergy), 180 MG PO QAM Ferrous Sulfate (Ferrous Sulfate), 1 TAB PO BID Cyanocobalamin (Cyanocobalamin), 1,000 MCG INJ MONTHLY - Take the following medications the morning of surgery with a sip of water: Metoprolol Succ (Toprol Xl) (Toprol-Xl ), 100 MG PO BID Levothyroxine Sodium (Synthroid), 175 MCG PO QAM Fluticasone Propionate (Nasal) (Flonase Allergy Relief), 1 SPRAY REBEKAH DAILY PRN for ALLERGIES (if needed) Fluticasone Propionate (Flovent Hfa), Unknown Dose INH BID Diltiazem HCl (Diltiazem Cd), 120 MG PO QAM Albuterol Sulfate (Proventil Hfa), 2 PUFF INH Q6 PRN for SOB/Wheezing (if needed ) Aspirin (Aspirin EC Low Dose), 81 MG PO QAM [hydrocone APAP ], 1-2 TAB PO HS PRN for Pain (okay to take up to 4 hours prior to surgery if needed) - Take the following medications as scheduled the night before surgery: Sucralfate (Carafate), 1 GM PO PRN (if needed) Potassium Chloride (Klor-Con M20), 20 MEQ PO DAILY PRN for With Lasix (if needed ) Ranitidine (Zantac), 300 MG PO HS Simvastatin (Zocor), 80 MG PO QPM Metoprolol Succ (Toprol Xl) (Toprol-Xl ), 100 MG PO BID Insulin Glargine (Toujeo Solostar), 52 UNITS SQ HS Furosemide (Lasix), 20 MG PO PRN PRN for FLUID RETENTION (if needed) Fluticasone Propionate (Nasal) (Flonase Allergy Relief), 1 SPRAY REBEKAH DAILY PRN for ALLERGIES (if needed) Fluticasone Propionate (Flovent Hfa), Unknown Dose INH BID Ferrous Sulfate (Ferrous Sulfate), 1 TAB PO BID Ezetimibe (Zetia), 10 MG PO HS Albuterol Sulfate (Proventil Hfa), 2 PUFF INH Q6 PRN for SOB/Wheezing (if needed ) [hydrocone APAP ], 1-2 TAB PO HS PRN for Pain (if needed) If you have any questions please call us at [phone] or [phone] or [phone]
[2017-04-30 10:04] LABS: BASO % 0.5 %; BASO ABS # 0.03 K/uL (0-0.2); COMPLETE YES; EOS % 4.5 %; HEMATOCRIT 44.3 % (37-47); IG% 0.3 %; LYMPH % 17.3 %; LYMPH ABS # 1.11 K/uL (1.2-3.4); MEAN CELL VOLUME 91.3 fL (80-100); MEAN CORPUSCULAR HEMOGLOBIN 29.1 pg (25-34); MEAN CORPUSCULAR HGB CONC 31.8 g/dl (32-36); MEAN PLATELET VOLUME 10.4 fL (7.4-10.4); MONO % 7.5 %; NEUT % 69.9 %; PLATELET COUNT 191 K/uL (130-400); RED BLOOD COUNT 4.85 M/uL (4.2-5.4); WHITE BLOOD COUNT 6.42 K/uL (4.8-10.8)
[2017-04-30 10:15] LABS: INR 2.4 (0.9-1.1); PARTIAL THROMBOPLASTIN RATIO 1.4; PROTHROMBIN TIME (PATIENT) 26.3 SECONDS (9.0-12.0)
--- NOTE | 2017-04-30 10:23 | DIAGNOSTIC IMAGING REPORT ---
CHEST PREADMISSION(PA/LAT) CLINICAL HISTORY: Preoperative evaluation. COMPARISON STUDY: Chest radiograph October 23, 2016. FINDINGS: There are median sternotomy wires. A lateral left sixth rib fracture is unchanged. A lateral right sixth rib fracture is noted. This is age indeterminate but likely subacute to chronic. Moderate cardiomegaly is noted. There is no pneumothorax. Slight blunting of the posterior costophrenic angles is noted. This may reflect trace bilateral pleural effusions. Suspected Heather B lines are noted within the left lower lung. IMPRESSION: 1. Findings suggestive of mild interstitial pulmonary edema. 2. Suspected trace bilateral pleural effusions. 3. Moderate cardiomegaly. 4. Age-indeterminate right sixth rib fracture. Electronically signed by: Vega Diaz M.D. 04/30/2017 10:22 AM Dictated Date/Time: 04/30/2017 10:19 AM
[2017-04-30 10:24] LABS: ESTIMATED AVERAGE GLUCOSE 143 mg/dl; HA1C FLAG Normal (Normal)
[2017-04-30 10:56] LABS: CREATININE 0.77 mg/dl (0.60-1.20)
[2017-04-30 10:57] LABS: BUN/CREATININE RATIO 18.4 (10-20); C-REACTIVE PROTEIN 0.53 mg/dl (0-0.29); CALCIUM 9.4 mg/dl (8.5-10.1); POTASSIUM 4.5 mmol/L (3.5-5.1)
--- NOTE | 2017-05-05 16:38 | HISTORY & PHYSICAL EXAMINATION ---
DATE OF ADMISSION: 05/09/2017 CHIEF COMPLAINT: Persistent progressive right hip pain. HISTORY OF PRESENT ILLNESS: A 72-year-old female with a pretty significant history of cardiac disease with Afib and history of coronary artery disease who presents for persistent progressive right hip pain and discomfort. I have been following for the past 4-5 years for this right hip pain. We were putting shots in and around her hip which provided some pain relief initially. This became less successful over time. Over time, her pain has become more disabling. She has groin pain. She has pain with every step. The more she walks, the more she hurts. She is having trouble getting around at all. She has actually resorted to using a cane for quite some time due to her pain. She would like to have her right hip replaced. PAST MEDICAL HISTORY: Significant for: 1. Coronary artery disease, status post cardiac surgery in the past. 2. Atrial fibrillation on Coumadin. 3. Elevated cholesterol. 4. Sleep apnea with CPAP machine. 5. Diabetes. 6. Hypothyroidism. 7. Chronic anemia. 8. Gastroesophageal reflux disease. 9. Obesity with a BMI of 50. 10. Back pain. PAST SURGICAL HISTORY: Include: 1. Coronary bypass surgery in 1995 at [facility]. 2. Carotid endarterectomy. ALLERGIES: SULFA, IODINE, GRASS, DUST, TREES, MOLD. CURRENT MEDICINES: 1. Synthroid 175 mcg a day. 2. Toprol 100 mg twice a day. 3. Abby 100 mg daily. 4. Cardizem 120 mg a day. 5. Iron sulfate 325 twice a day. 6. Zocor 80 mg a day. 7. Zetia 10 mg a day. 8. Zantac 300 mg a day. 9. Coumadin 1 mg every day except on Fridays and she takes 2 mg. 10. NovoLog insulin. 11. Toujeo. 12. Vitamin B12 shots. 13. Furosemide 20 mg p.r.n. 14. Potassium 20 mEq a day. 15. Sucralfate p.r.n. 16. Flovent p.r.n. 17. Proventil p.r.n. 18. Flonase p.r.n. 19. Steroid cream topically p.r.n. SOCIAL HISTORY: A 72-year-old white female. She is . Her medical doctor is Dr. Queen and hot oiler Dr. Peña. FAMILY HISTORY: Noncontributory. REVIEW OF SYSTEMS: Significant for cardiac history. She has got no known bleeding problems. No chest pain or shortness of breath. No history of DVT or PE. She is diabetic. PHYSICAL EXAMINATION: GENERAL: Reveals a pleasant elderly female. She is significantly obese with a BMI of 50. HEAD, EYES, EARS, NOSE, AND THROAT: Benign. NECK: Supple. No lymphadenopathy. LUNGS: Clear to auscultation. HEART: Has a regular rate and rhythm. ABDOMEN: Soft, nontender, nondistended. EXTREMITY EXAMINATION: Grossly neurovascularly intact except as follows: Examination of the right leg reveals the patient walks with a markedly antalgic gait. She walks with her foot externally rotated. She does have some chronic edema in her legs and some slight stasis changes. She has pain with any type of hip motion. Internal rotation to -10, external rotation at 20 degrees. Negative straight leg raise. She is neurologically intact. X-RAYS: X-rays of the right hip were reviewed. It shows advanced right hip DJD. She has complete loss of her joint space and it is pretty concentric disease. This has progressed over the past year. ASSESSMENT: A 72-year-old white female with pretty significant heart history and diabetes with advanced right hip degenerative joint disease. Pain has become disabling. She is having trouble getting around and maintaining any quality of life. She is a significant risk from a cardiac standpoint, but she wants to proceed with hip replacement surgery. PLAN: We are going to proceed with right total hip replacement. The risks and benefits of this procedure were explained to the patient including but not limited to DVT, PE, , infection, neurological injury, vascular injury, bleeding problem, pain, limited range of motion, stiffness, failure to relieve symptoms, incomplete relief of symptoms, need for further surgery in the future, fracture, leg length inequality, nerve palsy, dislocation, need for revision surgery, etc. The patient understands and desires to proceed. Informed consent was obtained. She will take her Toprol the morning of surgery. She will need to hold her Coumadin 5 days preoperatively. Will need stat PT and INR the morning of surgery. We will likely have Dr. Peña follow her in the hospital or one of his colleagues. She is hoping to be discharged to home with home health and her 's assistance. I will see her back 2 weeks postop.
[~2017-05-09] VITALS: Ht 152.4 cm; Wt 116.4 kg
[2017-05-09] VITALS (8 sets, daily range): BP systolic 117–165; BP diastolic 61–83; PULSE 70–87; TEMP 36.2–37; O2SAT 92–99; BMI 50.0
[~2017-05-09 09:44] MED LIST changes: -ACET-24 PO; +ACETAMINOPHEN 500 MG TAB PO SCH; +BUPIVACAINE 0.5 % 5 MG/1 ML PF 10ML VIAL ONE; +CEFAZOLIN 3000 MG/65 ML D5W 65 ML IV SCH; -CMD2 PO; +FAMOTIDINE 20 MG TAB PO SCH; +GABAPENTIN 300 MG CAP PO SCH; -GFNSR600 PO; -HYDR5SYP11 PO; -INSDGIPEN SC; +LACTATED RINGER'S 1000ML 1,000 ML IV SCH; +LACTATED RINGER'S 1000ML IV SCH; +METOCLOPRAMIDE HCL 10 MG TAB PO SCH; -RXC5 PO; +SCOPOLAMINE 1.5 MG TDSY TD SCH; -TOLT4CAP PO
[2017-05-09 10:45] LABS: INR 1.6 (0.9-1.1); PARTIAL THROMBOPLASTIN RATIO 1.2
[2017-05-09] MEDS ORDERED: FENTANYL CITRATE INJ 50 MCG/1 ML 2 ML VIAL ONE ×3 (10:50→12:32)
[2017-05-09] MEDS ORDERED: MIDAZOLAM HCL 1 MG/ML 2ML VIAL ONE (10:50)
[2017-05-09] MEDS ORDERED: BUPIVACAINE/EPINEPHRINE 0.5% MPF 1:200,000 30 ML VIAL ONE (10:51)
[2017-05-09] MEDS ORDERED: BACITRACIN 50000 UNIT VIAL ONE (10:51)
[2017-05-09] MEDS ORDERED: LIDOCAINE HCL 2% 2 ML VIAL (20MG/ML) ONE (11:03)
[2017-05-09] MEDS ORDERED: PROPOFOL IV EMULSION 10 MG/ML 20 ML VIAL IV ONE (11:03)
[2017-05-09] MEDS ORDERED: SUCCINYLCHOLINE CHLORIDE 20 MG/ML 10 ML VIAL IV ONE (11:03)
--- NOTE | 2017-05-09 11:06 | History & Physical Bridge Note ---
H&P Re-Evaluation Bridge Note: I have examined the patient, reviewed the History & Physical and in the interval since the performance of the History & Physical I have noted the following changes of clinical significance: INR is 1.6. Discussed with patient and anesthesia. They are visiting with her and discussing risks. INR too high for spinal anesthesia. Patient wants to proceed with surgery if anesthesia thinks OK under general anesthesia. I did explain to her the increased risk of bleeding and she wants to proceed if OK with Anesthesia risk.
[2017-05-09] MEDS ORDERED: FLUMAZENIL 0.1 MG/1 ML 10 ML VIAL IV ONE (11:39)
[2017-05-09] MEDS ORDERED: DEXAMETHASONE SOD INJ 4 MG/ML VIAL ONE (12:24)
[2017-05-09] MEDS ORDERED: ONDANSETRON INJ 2 MG/ML 2 ML VIAL ONE (12:25)
[2017-05-09] MEDS ORDERED: LABETALOL HCL IV 5 MG/ML 20ML IV ONE ×3 (12:59→13:38)
[2017-05-09] MEDS ORDERED: NEOSTIGMINE METHYLSULFATE 5 MG/5 ML SYR ONE (13:28)
[2017-05-09] MEDS ORDERED: GLYCOPYRROLATE INJ 0.2 MG/ML VIAL ONE (13:28)
[2017-05-09] MEDS ORDERED: D5W AND 1/2NSS + 20MEQ KCL 1,000 ML IV SCH (14:14)
--- NOTE | 2017-05-09 14:14 | [facility] Post Operative Brief Note ---
Immediate Operative Summary Operative Date May 09, 2017. Pre-Operative Diagnosis Advanced right hip degenerative joint disease Post-Operative Diagnosis Advanced right hip degenerative joint disease Procedure(s) Performed Right total hip arthroplasty cemented/Hybrid Surgeon Dr. Doss Laboratory Manager Surgeon(s) SOWMYA Le Estimated Blood Loss 400ml Findings Right Hip DJD Fluids (cc crystalloids) 1200 cc Specimens A) Right femoral head and tissue Drains None Anesthesia General Complication(s) None Disposition Recovery Room / PACU
[2017-05-09] MEDS ORDERED: HYDROmorphone INJ 0.5 MG/0.5 ML SYR IV PRN (14:15)
[2017-05-09] MEDS ORDERED: ALBUTEROL HFA 8 GM INHALER INH PRN (14:15)
[2017-05-09] MEDS ORDERED: FLUTICASONE PROPIONATE NA SPR 16 GM BTL NAE PRN (14:15)
[2017-05-09] MEDS ORDERED: METOCLOPRAMIDE HCL INJ 5 MG/ML 2 ML VIAL IV PRN (14:15)
[2017-05-09] MEDS ORDERED: POTASSIUM CHLORIDE 20 MEQ TABCR PO PRN (14:15)
[2017-05-09] MEDS ORDERED: BISACODYL 10 MG SUPP PR PRN (14:15)
[2017-05-09] MEDS ORDERED: ALUMINUM/MAGNESIUM/SIMETH (MAALOX MAX) 30 ML UDC PO PRN (14:15)
[2017-05-09] MEDS ORDERED: FUROSEMIDE 20 MG TAB PO PRN (14:15)
[2017-05-09] MEDS ORDERED: SUCRALFATE 1 GM TAB PO PRN (14:15)
[2017-05-09] MEDS ORDERED: OXYCODONE HCL IR 5 MG TAB (IMMEDIATE RELEASE) PO PRN (14:15)
[2017-05-09] MEDS ORDERED: ZOLPIDEM TARTRATE 5 MG TAB PO PRN (14:15)
[2017-05-09] MEDS ORDERED: MAGNESIUM HYDROXIDE SUSP 30 ML UDC PO PRN (14:15)
[2017-05-09] MEDS ORDERED: ONDANSETRON INJ 2 MG/ML 2 ML VIAL IV PRN ×2 (14:15→14:45)
[2017-05-09] MEDS ORDERED: GLUCAGON FOR INJ 1 MG VIAL SQ PRN (14:30)
[2017-05-09] MEDS ORDERED: GLUCOSE 40% GEL 15 GM TUBE PO PRN (14:30)
[2017-05-09] MEDS ORDERED: DEXTROSE 50% 50 ML SYR IV PRN (14:30)
[2017-05-09] MEDS ORDERED: GLUCOSE 10 TABS/TUBE PO PRN (14:30)
[2017-05-09] MEDS ORDERED: HYDROmorphone INJ 0.5 MG/0.5 ML SYR ONE (14:43)
[2017-05-09] MEDS ORDERED: HYDROmorphone INJ 1 MG/ML SYR IV PRN (14:45)
[2017-05-09] MEDS ORDERED: NALOXONE HCL 0.4 MG/1 ML VIAL/CARP IV PRN (14:45)
[2017-05-09] MEDS ORDERED: FLUMAZENIL 0.1 MG/1 ML 10 ML VIAL IV PRN (14:45)
[2017-05-09] MEDS ORDERED: ATROPINE SULFATE 0.1 MG/ML 5ML SYR IV PRN (14:45)
[2017-05-09] MEDS ORDERED: PROMETHAZINE HCL INJ 12.5 MG in SODIUM CHLORIDE 0.9% 50ML 50 ML IV PRN (14:45)
[2017-05-09] MEDS ORDERED: EpHEDrine SULFATE INJ 50 MG/ML AMP IV PRN (14:45)
[2017-05-09] MEDS ORDERED: LABETALOL HCL IV 5 MG/ML 20ML IV PRN (14:45)
--- NOTE | 2017-05-09 15:31 | Anesthesiology Progress Note ---
Anesthesia Post Op Note Date & Time May 09, 2017 at 15:31 Vital Signs Pain Intensity: 7.0 Vital Signs Past 12 Hours Date Time Temp Pulse Resp B/P (MAP) Pulse Ox O2 Delivery O2 Flow Rate FiO2 05/09/17 15:19 36.2 66 18 143/86 4 Nasal Cannula 05/09/17 14:14 36.6 57 16 148/123 98 Mask 10 05/09/17 10:26 36.8 82 20 165/79 96 Room Air Notes Mental Status: alert / awake / arousable, participated in evaluation Pt Amnestic to Procedure: Yes Nausea / Vomiting: adequately controlled Pain: adequately controlled Airway Patency, RR, SpO2: stable & adequate BP & HR: stable & adequate Hydration State: stable & adequate Anesthetic Complications: no major complications apparent
[2017-05-09] MEDS: CHECK SCOPOLAMINE PATCH PLACEMENT SCH ×2 (16:00→23:54)
[2017-05-09] MEDS ORDERED: INSULIN ASPART 100 UNITS/ML 3 ML PEN SQ SCH (16:00)
--- NOTE | 2017-05-09 16:04 | DIAGNOSTIC IMAGING REPORT ---
R PELVIS/UNILATERAL HIP 1 VIEW CLINICAL HISTORY: IN PACU - A/P PELVIS and LATERAL HIP INCLUDING ALL OF IMPLANT postoperative evaluation COMPARISON: None. DISCUSSION: Total right hip prosthetic. Prosthetic is in good position. Good contact between prosthetic and underlying bone. No evidence for acetabular protrusion. There is no evidence for soft tissue swelling. IMPRESSION: Anatomic alignment status post total right hip replacement The above report was generated using voice recognition software. It may contain grammatical, syntax or spelling errors. Electronically signed by: Reggie Álvarez M.D. 05/09/2017 4:02 PM Dictated Date/Time: 05/09/2017 4:02 PM
[2017-05-09] MEDS ORDERED: WARFARIN SOD 2 MG TAB PO ONE (17:00)
[2017-05-09] MEDS: FERROUS GLUCONATE 324 MG TAB PO SCH (18:10)
[2017-05-09] MEDS: KETOROLAC TROMETHAMINE 15 MG/ML VIAL IV. SCH ×2 (18:10→23:54)
[2017-05-09] MEDS ORDERED: NURSING VERBAL MED ORDER ONE (18:30)
[2017-05-09] MEDS: CEFAZOLIN IV 2,000 MG in DEXTROSE 5% 50ML 50 ML IV SCH (18:39)
[2017-05-09] MEDS: INSULIN HUMAN REGULAR SC SCH ×2 (18:45→21:04)
[2017-05-09] MEDS: NSS + 20MEQ KCL 1000ML 1,000 ML IV SCH (19:07)
--- NOTE | 2017-05-09 19:56 | Medical Consult ---
Consultation Date of Consultation: May 09, 2017. Attending Physician: Angel Doss M.D. Reason for Consultation: Medical Management History of Present Illness Ms. Strauss is a 72 y/o female with PMHx of Persistent Atrial Fibrillation, Diastolic CHF, CAD S/P CABG, HLD, DM, Hypothyroidism, Chronic Microcytic Anemia , BIRDIE on night CPAP, and GERD who is S/P R CRISTLE on 05/09. Patient was admitted in October 2016 for acute diastolic CHF. She only required Lasix 20 mg PRN and reports that on average she takes it daily and sometimes every other day. Feels that she is retaining more fluid due to not taking her Lasix this AM. However, reports no SOB or orthopnea. She still utilizes Toujeo 52 units HS but reports a low reading in 70s this AM. Discussed implementing a lower dose tonight as her glucose readings adequate. Can readjust in AM. Coumadin has been on hold but INR 1.6 prior to surgery. Past Medical/Surgical History Medical Problems: (1) Acute CHF Status: Acute (2) Cough Status: Acute (3) Hypertension Status: Acute Family History Heart disease Social History Smoking Status: Former Smoker Drug Use: none Marital Status: Housing Status: lives with significant other Occupation Status: retired Allergies Coded Allergies: Iodine (Verified Allergy, Mild, TROUBLE BREATHING OK WITH PRE-MEDICATION , 05/09/17) pt reports she thinks she is okay with betadine on skin, reaction has occured with injection type iodine Sulfa Antibiotics (Verified Allergy, Unknown, i swell up, 05/09/17) Current Inpatient Medications Current Inpatient Medications Medications (Trade) Dose Ordered Sig/Jonathon Route Start Time Stop Time Status Last Admin Dose Admin Miscellaneous (Remove Transderm-Scop Patch) 1 ea Q72H N/A 05/12/17 06:00 05/12/17 06:01 Miscellaneous Information (Check Scopolamine Patch Placement) 1 ea QS N/A 05/09/17 16:00 05/12/17 05:59 05/09/17 16:00 1 EA Ketorolac Tromethamine (Toradol Inj) 15 mg Q6 IV. 05/09/17 18:00 05/10/17 17:59 05/09/17 18:10 15 MG Oxycodone HCl (Roxicodone Immediate Rel Tab) 5 mg Q4H PRN PO 05/09/17 14:15 05/23/17 14:14 Acetaminophen (Tylenol Tab) 1,000 mg Q8 PO 05/09/17 22:00 06/08/17 21:59 Magnesium Hydroxide (Milk Of Magnesia Susp) 30 ml Q6H PRN PO 05/09/17 14:15 06/08/17 14:14 Bisacodyl (Dulcolax Supp) 10 mg DAILY PRN RI 05/09/17 14:15 06/08/17 14:14 Senna (Senokot Tab) 17.2 mg HS PO 05/09/17 21:00 06/08/17 20:59 Docusate Sodium (coLACE CAP) 100 mg BID PO 05/09/17 21:00 06/08/17 20:59 Al Hydrox/Mg Hydrox/Simethicone (Maalox Max Susp) 15 ml Q4H PRN PO 05/09/17 14:15 06/08/17 14:14 Zolpidem Tartrate (Ambien Tab) 5 mg HSZ PRN PO 05/09/17 14:15 06/08/17 14:14 Multivitamins (Multivitamin Tab) 1 tab QAM PO 05/10/17 09:00 06/09/17 08:59 Ondansetron HCl (Zofran Inj) 4 mg Q6H PRN IV 05/09/17 14:15 06/08/17 14:14 Metoclopramide HCl (Reglan Inj) 10 mg Q6H PRN IV 05/09/17 14:15 06/08/17 14:14 Ferrous Gluconate (Ferrous Gluconate Tab) 324 mg TIDM PO 05/09/17 17:45 06/08/17 17:59 05/09/17 18:10 324 MG Pantoprazole Sodium (Protonix Tab) 40 mg QAM PO 05/10/17 09:00 06/09/17 08:59 Cefazolin Sodium 2000 mg/Dextrose 60 ml @ 100 mls/hr Q8H IV 05/09/17 18:00 05/10/17 02:35 05/09/17 18:39 100 MLS/HR Tapentadol (Nucynta Er Tab) 50 mg BID PO 05/09/17 21:00 06/08/17 20:59 Albuterol (Ventolin Hfa Inhaler) 2 puffs Q6H PRN INH 05/09/17 14:15 06/08/17 14:14 Aspirin (Ecotrin Tab) 81 mg QAM PO 05/10/17 09:00 06/09/17 08:59 Diltiazem HCl (Cardizem Cd Cap) 120 mg QAM PO 05/10/17 09:00 06/09/17 08:59 EZETIMIBE (Zetia Tab) 10 mg HS PO 05/09/17 21:00 06/08/17 20:59 Fexofenadine HCl (Abby Tab) 180 mg QAM PO 05/10/17 09:00 06/09/17 08:59 Fluticasone Propionate (Flonase Nasal [place]) 2 sprays DAILY PRN REBEKAH 05/09/17 14:15 06/08/17 14:14 Furosemide (Lasix Tab) 20 mg PRN PRN PO 05/09/17 14:15 06/08/17 14:14 Levothyroxine Sodium (Synthroid Tab) 175 mcg DAILYBB PO 05/10/17 06:00 06/09/17 05:59 Metoprolol Succinate (Toprol Xl Tab) 100 mg BID PO 05/09/17 21:00 06/08/17 20:59 Potassium Chloride (Klor-Con Tab) 20 meq DAILY PRN PO 05/09/17 14:15 06/08/17 14:14 Ranitidine HCl (zANTac TAB) 300 mg HS PO 05/09/17 21:00 06/08/17 20:59 Simvastatin (Zocor Tab) 80 mg QPM PO 05/09/17 21:00 06/08/17 20:59 Sucralfate (Carafate Tab) 1 gm DAILY PRN PO 05/09/17 14:15 06/08/17 14:14 Hydromorphone HCl (Dilaudid Inj) 0.5 mg Q1H PRN IV 05/09/17 14:15 05/23/17 14:14 Insulin Human Regular (novoLIN-R) SLIDING SCALE ACHS SC 05/09/17 17:15 06/08/17 17:14 05/09/17 18:45 5 UNITS Glucose (Glucose 40% Gel) 15-30 GRAMS 15 GRAMS... UD PRN PO 05/09/17 14:30 06/08/17 14:29 Glucose (Glucose Chew Tab) 4-8 Tablets 4 Tabl... UD PRN PO 05/09/17 14:30 06/08/17 14:29 Dextrose (Dextrose 50% 50ML Syringe) 25-50ML OF 50% DW IV FOR... UD PRN IV 05/09/17 14:30 06/08/17 14:29 Glucagon (Glucagon Inj) 1 mg UD PRN SQ 05/09/17 14:30 06/08/17 14:29 Hydromorphone HCl (Dilaudid Inj) 0.25 mg Q5M PRN IV 05/09/17 14:45 05/09/17 20:00 05/09/17 15:03 0.25 MG Naloxone HCl (Narcan Inj) 0.2 mg Q2M PRN IV 05/09/17 14:45 05/09/17 20:00 Flumazenil (Romazicon Inj) 0.2 mg Q2M PRN IV 05/09/17 14:45 05/09/17 20:00 Ondansetron HCl (Zofran Inj) 4 mg ONE PRN IV 05/09/17 14:45 05/09/17 20:00 Promethazine HCl 12.5 mg/Sodium Chloride 50.5 ml @ 202 mls/hr ONE PRN IV 05/09/17 14:45 Labetalol HCl (Normodyne IV) 5 mg Q5M PRN IV 05/09/17 14:45 05/09/17 20:00 Ephedrine Sulfate (EpHEDrine SULFATE INJ) 5 mg Q5M PRN IV 05/09/17 14:45 05/09/17 20:00 Atropine Sulfate (Atropine Sulfate 0.1MG/Ml Inj) 0.5 mg Q1M PRN IV 05/09/17 14:45 05/09/17 20:00 Insulin Glargine (Lantus Solostar Pen) 52 units HS SC 05/10/17 21:00 06/09/17 20:59 Potassium Chloride/Sodium Chloride 1,000 ml @ 100 mls/hr Q10H IV 05/09/17 18:45 05/10/17 08:00 05/09/17 19:07 100 MLS/HR Insulin Glargine (Lantus Solostar Pen) 25 units HS SC 05/09/17 21:00 05/09/17 23:59 Review of Systems Constitutional: No fever, No chills ENT: No nasal symptoms, No sore throat, No trouble swallowing Respiratory: No cough, No shortness of breath Cardiovascular: No chest pain, No orthopnea, No palpitations Abdomen: No pain, No nausea, No vomiting, No diarrhea, No constipation, No GI bleeding Musculoskeletal: No calf pain Genitourinary - Female: No dysuria Hematologic / Lymphatic: No abnormal bleeding/bruising, No clotting problems Physical Exam Date Time Temp Pulse Resp B/P (MAP) Pulse Ox O2 Delivery O2 Flow Rate FiO2 05/09/17 19:04 36.2 86 16 118/75 (89) 97 Nasal Cannula 3.0 05/09/17 18:11 37.0 82 16 128/81 (97) 98 Nasal Cannula 2.0 05/09/17 17:19 36.2 73 16 118/76 (90) 97 Nasal Cannula 3.0 05/09/17 16:30 36.5 71 16 125/83 (97) 99 Nasal Cannula 4.0 05/09/17 16:11 95 Nasal Cannula 4.0 05/09/17 16:00 36.5 70 16 142/70 (94) 95 Nasal Cannula 4.0 05/09/17 16:00 Nasal Cannula 3.0 05/09/17 15:47 142/81 05/09/17 15:44 72 16 97 05/09/17 15:44 74 16 05/09/17 15:41 145/71 05/09/17 15:39 66 16 97 05/09/17 15:39 65 16 05/09/17 15:36 134/73 05/09/17 15:34 64 18 98 05/09/17 15:34 65 18 05/09/17 15:31 153/74 05/09/17 15:29 70 17 97 05/09/17 15:29 68 17 05/09/17 15:26 143/73 05/09/17 15:24 66 16 05/09/17 15:24 65 16 97 05/09/17 15:21 134/75 05/09/17 15:19 36.2 66 18 143/86 4 Nasal Cannula 05/09/17 15:19 65 18 05/09/17 15:19 66 18 97 05/09/17 15:17 143/86 05/09/17 15:14 59 17 05/09/17 15:14 62 17 97 05/09/17 15:11 149/71 05/09/17 15:09 66 16 97 05/09/17 15:09 63 16 05/09/17 15:07 150/65 05/09/17 15:04 63 19 05/09/17 15:04 66 19 98 05/09/17 15:02 152/64 05/09/17 14:59 61 20 97 05/09/17 14:59 65 20 05/09/17 14:56 154/67 05/09/17 14:54 63 21 96 05/09/17 14:54 65 21 05/09/17 14:52 129/68 05/09/17 14:49 58 20 05/09/17 14:49 59 20 98 05/09/17 14:46 147/89 05/09/17 14:44 66 20 97 05/09/17 14:44 64 20 05/09/17 14:41 148/78 05/09/17 14:39 58 18 96 05/09/17 14:39 56 18 05/09/17 14:37 148/69 05/09/17 14:34 63 21 98 05/09/17 14:34 65 21 05/09/17 14:31 144/94 05/09/17 14:29 64 22 97 05/09/17 14:29 66 22 05/09/17 14:26 140/77 05/09/17 14:24 60 22 98 05/09/17 14:24 60 22 05/09/17 14:21 129/64 05/09/17 14:19 66 18 98 05/09/17 14:19 67 18 05/09/17 14:17 124/55 05/09/17 14:15 148/123 05/09/17 14:14 66 19 98 05/09/17 14:14 63 22 93 05/09/17 14:14 36.6 57 16 148/123 98 Mask 10 05/09/17 10:26 36.8 82 20 165/79 96 Room Air General Appearance: WD/WN, no apparent distress Head: normocephalic, atraumatic Eyes: sclerae normal ENT: hearing grossly normal Neck: supple, no JVD, trachea midline Respiratory/Chest: lungs clear, normal breath sounds, no respiratory distress, no accessory muscle use Cardiovascular: no gallop, no murmur, + irregularly irregular Abdomen/GI: normal bowel sounds, non tender, soft Extremities/Musculoskelatal: no calf tenderness, no pedal edema, + pertinent finding (R hip dressing C/D/I; immediate cap refill; motor/sensation intact to feet/toes) Neurologic/Psych: alert, oriented x 3 Skin: normal color, warm/dry Laboratory Results Last 24 Hours Test 05/09/17 10:07 05/09/17 10:11 05/09/17 14:23 05/09/17 17:19 Prothrombin Time 17.0 SECONDS Prothromb Time International Ratio 1.6 Activated Partial Thromboplast Time 31.4 SECONDS Partial Thromboplastin Ratio 1.2 Bedside Glucose 106 mg/dl 153 mg/dl 184 mg/dl Assessment & Plan Ms. Strauss is a 72 y/o female with PMHx of Persistent Atrial Fibrillation, Diastolic CHF, CAD S/P CABG, HLD, DM, Hypothyroidism, Chronic Microcytic Anemia , BIRDIE on night CPAP, and GERD who is S/P R CRISTEL on 05/09. S/P R CRISTEL on 05/09: - Pain management, IVF, PT/OT, DVT Prophylaxis per primary team - DVT prophylaxis - Coumadin Diabetes: CONTROLLED - A1c 6.6 - Hold Toujeo as non-formulary - had low reading in 70s today and will cut Lantus to 25 units HS - Can resume Lantus 52 units tomorrow - initial dose 80% of Toujeo and then 1:1 conversion - can institute 1:1 tomorrow - SSI - 140-180 goal with CF 30 and CR 10 Persistent Atrial Fibrillation: Rate Controlled - Diltiazem 120 mg daily and Metoprolol Succ 100 mg BID - Coumadin - trend INR Chronic Diastolic CHF: - Lasix 20 mg PRN weight gain/fluid retention CAD S/P CABG: - ASA 81 mg daily - Zetia 10 mg daily and Simvastatin 80 mg daily Chronic Microcytic Anemia - BENJIE: - Hemoglobin adequate - will expect some decrease 2/2 EBL of surgery and hemoconcentration - Continue iron supplementation Hypothyroidism: - Levothyroxine 175 mcg daily .Attending Addendum: I have physically seen this patient, have directed the physician assistants medical activities, and agree with the H&P as noted above with the following exceptions as noted. Assessment and Plan: Status post right total hip arthroplasty on 05/09- The patient is seen postoperatively and is medically stable. CAD/status post CABG/persistent A. fib/chronic diastolic CHF-- Continue diltiazem and metoprolol with hold parameters. Continue Coumadin and follow with serial INRs. Continue aspirin 81 mg by mouth daily. Diabetes mellitus-- Convert Toujeo to Lantus 52 units starting tomorrow, with reduced dose of 25 units tonight at bedtime. Place on Accu-Cheks before meals and at bedtime with NovoLog coverage per scale. Hyperlipidemia-- Continue Zetia and simvastatin. Chronic microcytic anemia-- Continue routine iron supplementation. Follow serial H&H's. Hypothyroidism-- Continue levothyroxine sodium daily.
[2017-05-09] MEDS: DOCUSATE SODIUM 100 MG CAP PO SCH (20:51)
[2017-05-09] MEDS: SENNA 8.6 MG TAB PO SCH (20:52)
[2017-05-09] MEDS: RANITIDINE HCL 150 MG TAB PO SCH (20:53)
[2017-05-09] MEDS: METOPROLOL SUCC 50MG EXT REL TAB PO SCH (20:53)
[2017-05-09] MEDS: SIMVASTATIN 80 MG TAB PO SCH (20:54)
[2017-05-09] MEDS: EZETIMIBE 10MG TAB PO SCH (20:54)
[2017-05-09] MEDS: TAPENTADOL ER 50 MG TABCR PO SCH (20:54)
[2017-05-09] MEDS ORDERED: INSULIN GLARGINE 52 UNIT SQ SCH (21:00)
[2017-05-09] MEDS ORDERED: INSULIN GLARGINE SOLOSTAR 100 UNITS/ML 3 ML PEN SC SCH ×2 (21:00)
[2017-05-09] MEDS: ACETAMINOPHEN 500 MG TAB PO SCH (21:29)
[2017-05-10] VITALS: BP 113/70; PULSE 87; TEMP 36.8; O2SAT 96
--- NOTE | 2017-05-10 00:49 | OPERATIVE REPORT ---
DATE OF OPERATION: 05/09/2017 SURGEON: Dr. Angel Doss. BEE ROBBER: SOWMYA Roland PREOPERATIVE DIAGNOSIS: Right hip degenerative joint disease. POSTOPERATIVE DIAGNOSIS: Same. PROCEDURE PERFORMED: Right hybrid total hip arthroplasty. COMPLICATIONS: None. ESTIMATED BLOOD LOSS: 400 mL. FLUID REPLACEMENT: 1200 mL crystalloid fluid replacement. ANESTHESIA: General. SPECIMENS: Right femoral head sent for pathology. OPERATIVE INDICATIONS: The patient is a 72-year-old female who we have been following for several years for hip arthritis and bursitis. We treated her extensively over the years. Over the past year, her hip pain has gotten markedly worse. She is often using assistive device to get around. X-rays over the past year showed marked progression of her hip arthritis. The patient failed conservative treatment and elected to proceed with surgical treatment. Of note, patient is morbidly obese with a BMI of 50. The patient was on Coumadin. She had stopped 5+ days ago, but her INR is still 1.6. She was not a candidate for spinal anesthetic, so general anesthetic was used. The risks and benefits of this were explained to patient. I also explained to her the increased risk of bleeding. She adamently wanted to proceed. OPERATIVE FINDINGS: Operative findings revealed morbid obesity. She had a BMI of 50+. She had a very large soft tissue envelope. She had extensive grade 4 changes of the femoral head and acetabulum. Moderate size joint effusion. OPERATIVE IMPLANTS: Operative implants consisted of: 1. A Biomet G7 size 48 mm acetabular shell. 2. A 6.5 cancellous acetabular screws; 1 at 35 mm in length and 1 at 30 mm in length. 3. An apex hole eliminator. 4. Highly cross-linked polyethylene liner with a 48 mm outer diameter and 32 mm inner diameter. 5. A DePuy size 3 [place] standard offset femoral stem. 6. A +5/32 mm metal articular ball. OPERATIVE PROCEDURE: The patient was taken to the operating room, identified and placed on the operating table in supine position. All contact areas were appropriately padded. IV antibiotics were provided by anesthesia team. A general anesthetic was implemented by anesthesia team. The patient was then placed in the left lateral decubitus position. An axillary roll was placed. A Stulberg hip positioner was used for positioning. The right hip and leg were then prepped and draped in the usual sterile fashion. I did spend quite a bit of time positioning her due to her large soft tissue envelope. A posterolateral approach to the right hip was then performed through a curvilinear incision, centered over the greater trochanter. Sharp dissection was carried out through the subcutaneous tissues down to the level of the IT band and gluteal fascia. The IT band and gluteal fascia was incised longitudinally in line with skin incision. Of note, her subcutaneous tissues were about 6 inches thick. The IT band and gluteal fascia were incised in line with the skin incision. The underlying greater trochanteric bursa was excised. The piriformis and external rotators were tagged and taken off the back of the hip capsule very carefully. Great care was taken throughout the procedure to protect the sciatic nerve at all times. Posterior capsulotomy was then performed leaving a large flap for later repair. Hip was internally rotated and dislocated. We did have to extend the incision proximally and distally due to her large soft tissue envelope in order to gain adequate exposure. Femoral neck osteotomy cut was then made with a final cut about 8 mm above the lesser trochanter. Femoral head was removed and sent for pathology. The femur was retracted anteriorly. Attention was then drawn to the acetabulum. The acetabular labrum was excised. The pulvinar fat was excised. Sequential reaming of the acetabulum was then performed beginning with a size 43 and progressing up to 47. A 48 mm Biomet G7 acetabular shell was then placed in about 40 degrees of lateral opening and 20 degrees of anteversion. It was fixed with two 6.5 cancellous acetabular screws. A trial liner was placed. Attention was then drawn to the femur. The proximal femur was entered with a cookie cutter followed by canal finder and lateralizing reamer. I did ream up for a size 3. I then broached beginning with size 1 and progressing up to a 3. We got pretty good fit with the 3. did not feel I could get good enough bony contact to be certain that there would be no subsidence of femoral component, so I elected to cement the stem. We then trialed the hip. The +5 articular ball was fully stable in full extension and external rotation, flexion to 90 degrees, internal rotation to over 60 degrees. I did try the +1 articular ball and the soft tissue seemed a little lax and I really wanted to avoid instability in this obese patient. We elected to place these implants. All trial implants were removed. An apex hole eliminator was placed. A highly cross-linked polyethylene liner was placed. A cement restrictor was placed distally in the femoral canal. A double batch of Palacos IgG was then mixed and injected into the canal. A [employer] size 3 cemented stem was then placed with a centralizer. It was held in place until the cement hardened. I then placed a +5/32 mm articular ball. Hip was once again located and found to be extremely stable. Soft tissue tension seemed appropriate. Leg lengths appeared appropriate. Attention was then drawn toward closing. The wound was irrigated with copious amounts of pulsatile lavage solution. I did inject locally with 50 mL of 0.5% Marcaine with epinephrine. The posterior capsule and external rotators were then repaired through drill holes in the posterior trochanter with #2 Ti-Cron suture. The IT band and gluteal fascia were then closed with #1 PDS suture in a running fashion. The subcutaneous tissues were then closed in 3 layers with 2 deep layers with #2 Vicryl suture in a buried interrupted fashion. The subcutaneous tissues were then closed with 2-0 Dexon suture in a buried interrupted fashion. Skin was closed with skin jhonatan. Leg was then cleaned and dried and a sterile dressing of Xeroform, 4 x 4, sterile ABD pad and foam tape was applied. The patient was then brought out of general anesthesia and transferred to the recovery room in stable condition. The patient tolerated the procedure without complications. All needle and sponge counts were correct at the end of the operation. I attest to the content of the Intraoperative Record and any orders documented therein. Any exceptions are noted below. MARYAM
[2017-05-10] MEDS: CEFAZOLIN IV 2,000 MG in DEXTROSE 5% 50ML 50 ML IV SCH (01:36)
[2017-05-10 03:25] VITALS: BP 123/72; PULSE 70; TEMP 37; O2SAT 94
[2017-05-10] MEDS: NSS + 20MEQ KCL 1000ML 1,000 ML IV SCH (05:16)
[2017-05-10] MEDS: KETOROLAC TROMETHAMINE 15 MG/ML VIAL IV. SCH ×2 (05:17→12:41)
[2017-05-10] MEDS: ACETAMINOPHEN 500 MG TAB PO SCH ×3 (05:17→22:10)
[2017-05-10] MEDS: LEVOTHYROXINE 175 MCG TAB PO SCH (05:18)
[2017-05-10 06:57] VITALS: BP 108/72; PULSE 86; TEMP 36.9; O2SAT 93
[2017-05-10 07:40] LABS: BASO % 0.1 %; BASO ABS # 0.01 K/uL (0-0.2); COMPLETE YES; HEMATOCRIT 35.7 % (37-47); IG% 0.4 %; LYMPH % 7.6 %; LYMPH ABS # 1.35 K/uL (1.2-3.4); MEAN CELL VOLUME 88.6 fL (80-100); MEAN CORPUSCULAR HEMOGLOBIN 28.8 pg (25-34); MEAN CORPUSCULAR HGB CONC 32.5 g/dl (32-36); MEAN PLATELET VOLUME 10.9 fL (7.4-10.4); MONO % 10.7 %; NEUT % 81.2 %; PLATELET COUNT 197 K/uL (130-400); RED BLOOD COUNT 4.03 M/uL (4.2-5.4); WHITE BLOOD COUNT 17.71 K/uL (4.8-10.8)
[2017-05-10 07:53] LABS: INR 1.6 (0.9-1.1); PROTHROMBIN TIME (PATIENT) 17.4 SECONDS (9.0-12.0)
[2017-05-10 08:14] LABS: BUN/CREATININE RATIO 21.7 (10-20); CALCIUM 8.7 mg/dl (8.5-10.1); CREATININE 0.88 mg/dl (0.60-1.20)
[2017-05-10] MEDS: TAPENTADOL ER 50 MG TABCR PO SCH ×2 (09:21→22:15)
[2017-05-10] MEDS: ASPIRIN 81 MG ECTAB PO SCH (09:22)
[2017-05-10] MEDS: DILTIAZEM HCL 120 MG CAPCR PO SCH (09:22)
[2017-05-10] MEDS: DOCUSATE SODIUM 100 MG CAP PO SCH ×2 (09:22→22:09)
[2017-05-10] MEDS: FEXOFENADINE HCL 180 MG TAB PO SCH (09:23)
[2017-05-10] MEDS: METOPROLOL SUCC 50MG EXT REL TAB PO SCH ×3 (09:23→22:12)
[2017-05-10] MEDS: FERROUS GLUCONATE 324 MG TAB PO SCH ×3 (09:23→18:17)
[2017-05-10] MEDS: PANTOprazole SOD 40 MG TAB PO SCH (09:24)
[2017-05-10] MEDS: MULTIVITAMIN TAB PO SCH (09:24)
[2017-05-10] MEDS: CHECK SCOPOLAMINE PATCH PLACEMENT SCH ×2 (09:25→16:00)
[2017-05-10] MEDS: INSULIN HUMAN REGULAR SC SCH ×4 (09:28→22:18)
--- NOTE | 2017-05-10 09:40 | PROGRESS NOTE ---
DATE: 05/10/2017 SUBJECTIVE: A 72-year-old white female postop day 1 from right total hip replacement. She is doing well. Really pain is very well controlled. No chest pain or shortness of breath. She had a pretty good night. Not feeling dizzy or lightheaded. OBJECTIVE: VITAL SIGNS: Temperature 36.9. Vital signs stable. GENERAL: Reveals a pleasant middle-aged elderly female. She is sitting in bed and looks quite comfortable. LUNGS: Clear to auscultation. HEART: Regular rate and rhythm. ABDOMEN: Soft, nontender, and nondistended. EXTREMITIES: Grossly neurovascularly intact except as follows. Examination of the right leg and hip reveals the leg to be well aligned. The hip is located. Dressing is clean, dry and intact. She can dorsiflex and plantarflex her foot appropriately. She is neurologically intact. LABORATORIES: Hemoglobin 11.6. Hematocrit 35.7. White cell count 17.71. INR is 1.6. Electrolytes are stable. ASSESSMENT: A 72-year-old white female postop day 1 from right hybrid total hip replacement. She is doing pretty well. Pain is controlled. She is neurologically intact. Multiple other medical issues, which seemed to be reasonably well managed. PLAN: 1. DVT prophylaxis including thigh high TEDs, SCDs, and she is back on Coumadin. We will resume her 1 mg a day dose. 2. PT/OT. Weightbearing as tolerated. Right total hip protocol. 3. Pain control, doing well with current pain regimen. 4. Medical management as per the medicine service. She is on insulin sliding scale coverage. 5. Disposition: She is hoping to be discharged to home with some home health once adequately recovered.
[2017-05-10 12:05] VITALS: BP 122/72; PULSE 89; O2SAT 95
--- NOTE | 2017-05-10 12:12 | Anesthesiology Progress Note ---
Anesthesia Post Op Note Date & Time May 10, 2017 at 12:11 Vital Signs Pain Intensity: 7.0 Vital Signs Past 12 Hours Date Time Temp Pulse Resp B/P (MAP) Pulse Ox O2 Delivery O2 Flow Rate FiO2 05/10/17 12:05 89 16 122/72 (89) 95 Room Air 05/10/17 07:30 Room Air 05/10/17 06:57 36.9 86 16 108/72 (84) 93 Room Air 05/10/17 03:25 37.0 70 16 123/72 (89) 94 CPAP Notes Mental Status: alert / awake / arousable, participated in evaluation Pt Amnestic to Procedure: Yes Nausea / Vomiting: adequately controlled Pain: adequately controlled Airway Patency, RR, SpO2: stable & adequate BP & HR: stable & adequate Hydration State: stable & adequate Anesthetic Complications: no major complications apparent
[2017-05-10 15:22] VITALS: BP 132/74; PULSE 76; TEMP 36.6; O2SAT 95
[2017-05-10] MEDS ORDERED: WARFARIN SOD 1 MG TAB PO SCH (16:00)
--- NOTE | 2017-05-10 18:01 | Progress Note ---
Subjective Date of Service: May 10, 2017. Subjective Was called to see patient today due to abnormal blood sugars. Patient reports feeling well and states that her blood sugar will get under better control once she is home. Patient denies any polydipsia, polyphagia, nausea, vomiting, diarrhea. Patient reports feeling well. Problem List Medical Problems: (1) Acute CHF Status: Acute (2) Cough Status: Acute (3) Hypertension Status: Acute Review of Systems Constitutional: No fever, No chills ENT: No hearing loss, No unusual epistaxis Respiratory: No cough, No sputum Cardiac: No chest pain, No orthopnea Abdomen: No pain, No nausea Musculoskeletal: No joint pain Female : No dysuria, No urinary frequency Psychiatric: No depression symptoms, No anhedonism Endo: No fatigue All Other Systems: Reviewed and Negative Medications Current Inpatient Medications Medications (Trade) Dose Ordered Sig/Jonathon Route Start Time Stop Time Status Last Admin Dose Admin Miscellaneous (Remove Transderm-Scop Patch) 1 ea Q72H N/A 05/12/17 06:00 05/12/17 06:01 Miscellaneous Information (Check Scopolamine Patch Placement) 1 ea QS N/A 05/09/17 16:00 05/12/17 05:59 05/11/17 07:09 1 EA Oxycodone HCl (Roxicodone Immediate Rel Tab) 5 mg Q4H PRN PO 05/09/17 14:15 05/23/17 14:14 05/10/17 09:21 5 MG Acetaminophen (Tylenol Tab) 1,000 mg Q8 PO 05/09/17 22:00 06/08/17 21:59 05/11/17 05:41 1,000 MG Magnesium Hydroxide (Milk Of Magnesia Susp) 30 ml Q6H PRN PO 05/09/17 14:15 06/08/17 14:14 Bisacodyl (Dulcolax Supp) 10 mg DAILY PRN [place] 05/09/17 14:15 06/08/17 14:14 Senna (Senokot Tab) 17.2 mg HS PO 05/09/17 21:00 06/08/17 20:59 05/10/17 22:40 17.2 MG Docusate Sodium (coLACE CAP) 100 mg BID PO 05/09/17 21:00 06/08/17 20:59 05/11/17 07:13 100 MG Al Hydrox/Mg Hydrox/Simethicone (Maalox Max Susp) 15 ml Q4H PRN PO 05/09/17 14:15 06/08/17 14:14 Zolpidem Tartrate (Ambien Tab) 5 mg HSZ PRN PO 05/09/17 14:15 06/08/17 14:14 Multivitamins (Multivitamin Tab) 1 tab QAM PO 05/10/17 09:00 06/09/17 08:59 05/11/17 07:09 1 TAB Ondansetron HCl (Zofran Inj) 4 mg Q6H PRN IV 05/09/17 14:15 06/08/17 14:14 Metoclopramide HCl (Reglan Inj) 10 mg Q6H PRN IV 05/09/17 14:15 06/08/17 14:14 Ferrous Gluconate (Ferrous Gluconate Tab) 324 mg TIDM PO 05/09/17 17:45 06/08/17 17:59 05/11/17 07:10 324 MG Pantoprazole Sodium (Protonix Tab) 40 mg QAM PO 05/10/17 09:00 06/09/17 08:59 05/11/17 07:12 40 MG Tapentadol (Nucynta Er Tab) 50 mg BID PO 05/09/17 21:00 06/08/17 20:59 05/11/17 07:13 50 MG Albuterol (Ventolin Hfa Inhaler) 2 puffs Q6H PRN INH 05/09/17 14:15 06/08/17 14:14 Aspirin (Ecotrin Tab) 81 mg QAM PO 05/10/17 09:00 06/09/17 08:59 05/11/17 07:09 81 MG Diltiazem HCl (Cardizem Cd Cap) 120 mg QAM PO 05/10/17 09:00 06/09/17 08:59 05/11/17 07:10 120 MG EZETIMIBE (Zetia Tab) 10 mg HS PO 05/09/17 21:00 06/08/17 20:59 05/10/17 22:40 10 MG Fexofenadine HCl (Abby Tab) 180 mg QAM PO 05/10/17 09:00 06/09/17 08:59 05/11/17 07:09 180 MG Fluticasone Propionate (Flonase Nasal [place]) 2 sprays DAILY PRN REBEKAH 05/09/17 14:15 06/08/17 14:14 Furosemide (Lasix Tab) 20 mg PRN PRN PO 05/09/17 14:15 06/08/17 14:14 Levothyroxine Sodium (Synthroid Tab) 175 mcg DAILYBB PO 05/10/17 06:00 06/09/17 05:59 05/11/17 05:41 175 MCG Metoprolol Succinate (Toprol Xl Tab) 100 mg BID PO 05/09/17 21:00 06/08/17 20:59 05/11/17 07:13 100 MG Potassium Chloride (Klor-Con Tab) 20 meq DAILY PRN PO 05/09/17 14:15 06/08/17 14:14 Ranitidine HCl (zANTac TAB) 300 mg HS PO 05/09/17 21:00 06/08/17 20:59 05/10/17 22:40 300 MG Simvastatin (Zocor Tab) 80 mg QPM PO 05/09/17 21:00 06/08/17 20:59 05/10/17 22:40 80 MG Sucralfate (Carafate Tab) 1 gm DAILY PRN PO 05/09/17 14:15 06/08/17 14:14 Hydromorphone HCl (Dilaudid Inj) 0.5 mg Q1H PRN IV 05/09/17 14:15 05/23/17 14:14 Insulin Human Regular (novoLIN-R) SLIDING SCALE ACHS SC 05/09/17 17:15 06/08/17 17:14 05/11/17 07:51 2 UNITS Glucose (Glucose 40% Gel) 15-30 GRAMS 15 GRAMS... UD PRN PO 05/09/17 14:30 06/08/17 14:29 Glucose (Glucose Chew Tab) 4-8 Tablets 4 Tabl... UD PRN PO 05/09/17 14:30 06/08/17 14:29 Dextrose (Dextrose 50% 50ML Syringe) 25-50ML OF 50% DW IV FOR... UD PRN IV 05/09/17 14:30 06/08/17 14:29 Glucagon (Glucagon Inj) 1 mg UD PRN SQ 05/09/17 14:30 06/08/17 14:29 Promethazine HCl 12.5 mg/Sodium Chloride 50.5 ml @ 202 mls/hr ONE PRN IV 05/09/17 14:45 Insulin Glargine (Lantus Solostar Pen) 52 units HS SC 05/10/17 21:00 06/09/17 20:59 05/10/17 22:19 52 UNITS Warfarin Sodium (Coumadin Tab) 1 mg DAILY@16 PO 05/10/17 16:00 06/09/17 15:59 05/10/17 16:40 1 MG Miconazole Nitrate (Desenex Powder) 1 appln PRN PRN EXT 05/11/17 01:30 06/10/17 01:29 05/11/17 04:06 1 APPLN Objective Vital Signs Date Time Temp Pulse Resp B/P (MAP) Pulse Ox O2 Delivery O2 Flow Rate FiO2 05/10/17 15:22 36.6 76 18 132/74 (93) 95 Room Air 05/10/17 12:05 89 16 122/72 (89) 95 Room Air 05/10/17 07:30 Room Air 05/10/17 06:57 36.9 86 16 108/72 (84) 93 Room Air 05/10/17 03:25 37.0 70 16 123/72 (89) 94 CPAP 05/09/17 23:50 CPAP 05/09/17 23:30 36.4 87 16 117/70 (86) 92 CPAP 05/09/17 20:50 86 117/61 (79) 05/09/17 19:04 36.2 86 16 118/75 (89) 97 Nasal Cannula 3.0 05/09/17 18:11 37.0 82 16 128/81 (97) 98 Nasal Cannula 2.0 Physical Exam General Appearance: WD/WN, no apparent distress Neck: supple, no adenopathy, thyroid normal Respiratory/Chest: chest non-tender, lungs clear, normal breath sounds Cardiovascular: regular rate, rhythm, no edema, no gallop Abdomen: normal bowel sounds, non tender, soft Neurologic/Psychiatric: alert, normal mood/affect, oriented x 3 Lymphatic: no adenopathy Laboratory Results Last 24 Hours Test 05/09/17 20:29 05/10/17 07:16 05/10/17 07:57 05/10/17 12:02 Bedside Glucose 262 mg/dl 230 mg/dl 299 mg/dl White Blood Count 17.71 K/uL Red Blood Count 4.03 M/uL Hemoglobin 11.6 g/dL Hematocrit 35.7 % Mean Corpuscular Volume 88.6 fL Mean Corpuscular Hemoglobin 28.8 pg Mean Corpuscular Hemoglobin Concent 32.5 g/dl Platelet Count 197 K/uL Mean Platelet Volume 10.9 fL Neutrophils (%) (Auto) 81.2 % Lymphocytes (%) (Auto) 7.6 % Monocytes (%) (Auto) 10.7 % Eosinophils (%) (Auto) 0.0 % Basophils (%) (Auto) 0.1 % Neutrophils # (Auto) 14.38 K/uL Lymphocytes # (Auto) 1.35 K/uL Monocytes # (Auto) 1.90 K/uL Eosinophils # (Auto) 0.00 K/uL Basophils # (Auto) 0.01 K/uL RDW Standard Deviation 48.5 fL RDW Coefficient of Variation 14.8 % Immature Granulocyte % (Auto) 0.4 % Immature Granulocyte # (Auto) 0.07 K/uL Prothrombin Time 17.4 SECONDS Prothromb Time International Ratio 1.6 Sodium Level 136 mmol/L Potassium Level 5.0 mmol/L Chloride Level 104 mmol/L Carbon Dioxide Level 22 mmol/L Anion Gap 10.0 mmol/L Blood Urea Nitrogen 19 mg/dl Creatinine 0.88 mg/dl Est Creatinine Clear Calc Drug Dose 68.4 ml/min Estimated GFR () 76.6 Estimated GFR (Non- 66.1 BUN/Creatinine Ratio 21.7 Random Glucose 262 mg/dl Calcium Level 8.7 mg/dl Hepatitis C Antibody Screen NEG Test 05/10/17 17:03 Bedside Glucose 310 mg/dl Assessment and Plan Ms. Strauss is a 72 y/o female with PMHx of Persistent Atrial Fibrillation, Diastolic CHF, CAD S/P CABG, HLD, DM, Hypothyroidism, Chronic Microcytic Anemia , BIRDIE on night CPAP, and GERD who is S/P R CRISTEL on 05/09. S/P R CRISTEL on 05/09: - Pain management, IVF, PT/OT, DVT Prophylaxis per primary team - DVT prophylaxis - Coumadin follow serial INRs Diabetes: CONTROLLED - A1c 6.6 - Hold Toujeo as non-formulary - had low reading in 70s yesterday but may be due to patient being NPO the day prior and recently starting a diet. -BS was elevated today but that was likely from cuting lantus dose in half. - will resume Lantus 52 units today - initial dose 80% of Toujeo and then 1:1 conversion - SSI - 140-180 goal with CF 30 and CR 10 Persistent Atrial Fibrillation: Rate Controlled - Diltiazem 120 mg daily and Metoprolol Succ 100 mg BID - Coumadin - trend INR Chronic Diastolic CHF: - Lasix 20 mg PRN weight gain/fluid retention CAD S/P CABG: - ASA 81 mg daily - Zetia 10 mg daily and Simvastatin 80 mg daily Chronic Microcytic Anemia - BENJIE: - Hemoglobin adequate - will expect some decrease 2/2 EBL of surgery and hemoconcentration - Continue iron supplementation Hypothyroidism: - Levothyroxine 175 mcg daily
[2017-05-10] MEDS ORDERED: INSULIN GLARGINE SOLOSTAR 100 UNITS/ML 3 ML PEN SC SCH (21:00)
[2017-05-10] MEDS ORDERED: ACET-24 PO (21:36)
[2017-05-10] MEDS ORDERED: RXC5 PO (21:36)
--- NOTE | 2017-05-10 21:39 | Discharge Instructions ---
Discharge Instructions Date of Service May 10, 2017. Admission Reason for Admission: Right Hip Degenerative Joint Disease Discharge Discharge Diagnosis / Problem: Right Hip Replacement Discharge Goals Goal(s): Decrease discomfort, Improve function, Increase independence, Improve disease control, Therapeutic intervention Activity Recommendations Activity Limitations: per Instructions/Follow-up section (Total Hip Precautions ) Weightbearing Status: Right weightbearing . Instructions / Follow-Up Instructions / Follow-Up ACTIVITY RECOMMENDATIONS: Physical Therapy: * Aggressive physical therapy is not usually needed. You will learn to take care of yourself safely and walk. * Follow the "Hip Precautions Instructions." * In some cases, the criminal justice social worker at the hospital will arrange to have a therapist come to your house for the first couple of weeks to help you learn these skills. * You need to practice on your own or with the help of a family member as needed. * When you learn these skills, most of the therapy can be done on your own. Home Exercise: * You were shown a series of exercises in the hospital. Do these exercises three to four times each day including the exercises you were shown in physical therapy. Walking: * Get up and walk several times each day. For the first four weeks, try not to stand or walk for more than one hour at a time. If you do stand or walk for more than one hour, you will not hurt anything, but your leg will likely swell. * As you feel comfortable, you may change from the walker or crutches to a cane and then to independent walking. MEDICATIONS: New Medicine: * You will likely be taking one or more of these medicines: 1. Oxycodone - Take, as directed, when you need it, every four to six hours to control your pain. 2. Iron Sulfate - Take three times each day for the month after surgery to help you replace the blood lost during surgery. 3. Coumadin - Thins your blood to lessen the chance of forming a blood clot. * The most common side effects of pain medicine and iron are nausea and constipation. If nausea or constipation is too much of a problem or if you have any questions about your new medicines or doses, call [facility] at . We will try to help you manage these issues. VERY IMPORTANT TO READ AND REVIEW" Pain: * The immediate post-operative period after hip replacement surgery is often quite painful. * You are given a prescription for pain medicine. You should take it, as directed, when you need it, especially before physical therapy and before going to bed. Pain that interferes with sleep is very common and can last several months. * You will likely need pain medicine for the first two to four weeks. It will not stop all of the pain. The pain will lessen and as you feel better, you may change to milder pain medicine such as Tylenol. * The most common side effects of pain medicine are nausea and constipation, so don't take more than you need. SPECIAL CARE INSTRUCTIONS: TEDs/Elastic Stockings: * The white elastic stockings help limit swelling and prevent blood clots from forming in your legs. The more you wear them, the more they work. * Wear them for six weeks. Prevention of Infection: * Take antibiotics one hour before any dental cleaning, dental work, urological procedure, gastrointestinal procedure or any invasive surgery in order to prevent your new joint from getting infected. * You may get the antibiotics from the doctor performing the procedure or you may call our office at before and we will call in a prescription to the pharmacy of your choice. Things to Watch For: * Drainage from the incision site that occurs more than one week after your surgery. * Severely increased leg pain or swelling. * Increased redness at the incision site. * Fever above 102 degrees Fahrenheit. * Unusual chest pain or shortness of breath. * Unusual pain or burning with urination. Call [facility] at with any of the above problems or if you have any questions about your medicines or recovery. FOLLOW UP VISIT: Make an appointment to see your doctor for approximately two weeks after surgery for a progress check and staple removal by calling the office at . Current Hospital Diet Patient's current hospital diet: Diabetes Type 2 Diet Discharge Diet Recommended Diet: Diabetes Type 2 Diet Procedures Procedures Performed: Right total hip arthroplasty cemented/Hybrid Pending Studies Studies pending at discharge: no Laboratory Results Hemoglobin A1c Test 04/30/17 09:49 Range/Units Estimated Average Glucose 143 mg/dl Hemoglobin A1c 6.6 H 4.5-5.6 % Medical Emergencies . Who to Call and When: Medical Emergencies: If at any time you feel your situation is an emergency, please call 911 immediately. . Non-Emergent Contact Non-Emergency issues call your: Surgeon . "Provider Documentation" section prepared by Angel Doss. . VTE Core Measure Inpt VTE Proph given/why not?: Michael (Coumadin), Leena Coleman, SCD's
[2017-05-10 22:28] VITALS: BP 96/64; PULSE 86
[2017-05-10] MEDS ORDERED: INSULIN HUMAN REGULAR PER UNIT 8 UNITS in SYRINGE 7.92 ML IV ONE (22:30)
[2017-05-10] MEDS: SIMVASTATIN 80 MG TAB PO SCH (22:40)
[2017-05-10] MEDS: EZETIMIBE 10MG TAB PO SCH (22:40)
[2017-05-10] MEDS: RANITIDINE HCL 150 MG TAB PO SCH (22:40)
[2017-05-10] MEDS: SENNA 8.6 MG TAB PO SCH (22:40)
[2017-05-11] MEDS ORDERED: INSULIN ASPART 100 UNITS/ML 3 ML PEN SC SCH
[2017-05-11] MEDS: CHECK SCOPOLAMINE PATCH PLACEMENT SCH ×2 (00:18→07:09)
[2017-05-11] MEDS ORDERED: MICONAZOLE NITRATE POWDER 43 GM EXT PRN (01:30)
[2017-05-11] MEDS: INSULIN HUMAN REGULAR SC SCH ×3 (04:00→07:51)
[2017-05-11] MEDS: ACETAMINOPHEN 500 MG TAB PO SCH (05:41)
[2017-05-11] MEDS: LEVOTHYROXINE 175 MCG TAB PO SCH (05:41)
[2017-05-11 05:58] VITALS: BP 131/77; PULSE 92; TEMP 37.1; O2SAT 93
[2017-05-11 06:14] LABS: INR 1.8 (0.9-1.1); PROTHROMBIN TIME (PATIENT) 19.2 SECONDS (9.0-12.0)
[2017-05-11] MEDS: FEXOFENADINE HCL 180 MG TAB PO SCH (07:09)
[2017-05-11] MEDS: MULTIVITAMIN TAB PO SCH (07:09)
[2017-05-11] MEDS: ASPIRIN 81 MG ECTAB PO SCH (07:09)
[2017-05-11] MEDS: FERROUS GLUCONATE 324 MG TAB PO SCH (07:10)
[2017-05-11] MEDS: DILTIAZEM HCL 120 MG CAPCR PO SCH (07:10)
[2017-05-11] MEDS: PANTOprazole SOD 40 MG TAB PO SCH (07:12)
[2017-05-11] MEDS: METOPROLOL SUCC 50MG EXT REL TAB PO SCH (07:13)
[2017-05-11] MEDS: DOCUSATE SODIUM 100 MG CAP PO SCH (07:13)
[2017-05-11] MEDS: TAPENTADOL ER 50 MG TABCR PO SCH (07:13)
--- NOTE | 2017-05-11 07:35 | PROGRESS NOTE ---
DATE: 05/11/2017 SUBJECTIVE: 72-year-old white female postop day 2 from right total hip replacement. She is doing pretty well. Pain is controlled. Therapy has gone well. No chest pain or shortness of breath. OBJECTIVE: VITAL SIGNS: Temperature 37.1. Vital signs stable. GENERAL: Reveals a pleasant elderly female. She is sitting up in her bedside chair and looks comfortable. LUNGS: Clear to auscultation. HEART: Regular rate and rhythm. ABDOMEN: Soft, nontender, nondistended. EXTREMITIES: Grossly neurovascularly intact except as follows. Examination of the right leg reveals the dressing to be clean, dry and intact. Hip is located. She is neurologically intact. LABORATORY DATA: INR 1.8. ASSESSMENT: 72-year-old white female postop day 2 from right total hip replacement, doing pretty well. Pain is controlled. INR is nearly therapeutic. PLAN: 1. DVT prophylaxis including thigh high TEDs, SCDs, and Coumadin. She is back on her standard dose Coumadin. 2. PT, OT. Weightbearing as tolerated. Right total hip protocol. 3. Pain control, doing well with current pain regimen. 4. Disposition Plan to discharge to home with some home health later today.
[2017-05-11 08:18] VITALS: PULSE 113; O2SAT 91
[2017-05-11 09:14] VITALS: BP 131/77; PULSE 113; TEMP 37.1; O2SAT 91
[2017-05-11 10:00] VITALS: Ht 152.4 cm; Wt 116.4 kg
--- NOTE | 2017-05-15 00:14 | DISCHARGE SUMMARY ---
ADMITTING PHYSICIAN AND SURGEON: Dr. Doss. ADMITTING DIAGNOSIS: Right hip degenerative joint disease. SURGERY PERFORMED: Right total hip arthroplasty. SECONDARY DIAGNOSES: Coronary artery disease, atrial fibrillation, elevated cholesterol, sleep apnea, diabetes, hypothyroidism, chronic anemia, and gastroesophageal reflux disease, obesity, and back pain. CONSULTS: Dr. Adam, postoperative medical management. HISTORY AND PHYSICAL EXAMINATION: Well documented in the patient's chart. HOSPITAL COURSE: The patient was admitted on 05/09/2017, underwent total hip arthroplasty, tolerated the procedure well. There were no complications. She was transferred to the PACU postoperatively and later to the orthopedic floor for further care. She was given Ancef for antibiotic prophylaxis, HEYDI stockings, SCDs and Coumadin for DVT prophylaxis. Her INR was monitored daily and Coumadin dosed accordingly. Hemoglobin, hematocrit and vital signs were monitored during her hospital stay and remained stable. She did not require any blood transfusions. There were no complications. She was followed by the hospitalist service throughout her hospital stay. By postoperative day 2, she was tolerating a diabetic diet. Pain was controlled with oral pain medicine. She was participating in physical therapy and had no signs or symptoms of deep vein thrombosis. On postop day 2, she was discharged home and set up with home health services. She was given printed discharge instructions including new prescriptions for extra strength Tylenol and oxycodone. Continue her home medicines including Coumadin. She will continue physical therapy, weightbearing as tolerated, HEYDI stockings, and total hip precautions. Follow up in 10-12 days or sooner if there are any problems or concerns.
== END 2017-05-11 10:43 | disposition home health service (06) | DRG 470 ==
LOC: C.ACU 09:44 → C.3E 14:24 → ENRESERV 15:13
PROVIDERS: ADMIT Orthopaedic Surgery Sports Medicine; ATTEND Orthopaedic Surgery Sports Medicine
PROC: 0SR9029 Replacement of Right Hip Joint with Metal on Polyethylene Synthetic Substitute, Cemented, Open Approach (ICD-10-PCS; principal; 2017-05-09 12:00)
DX: M16.11 Unilateral primary osteoarthritis, right hip (principal); Z68.43 Body mass index [BMI] 50.0-59.9, adult; I48.1 Persistent atrial fibrillation; I50.32 Chronic diastolic (congestive) heart failure; I25.10 Atherosclerotic heart disease of native coronary artery without angina pectoris; E78.00 Pure hypercholesterolemia, unspecified; E11.9 Type 2 diabetes mellitus without complications; G47.30 Sleep apnea, unspecified; E03.9 Hypothyroidism, unspecified; K21.9 Gastro-esophageal reflux disease without esophagitis; E66.01 Morbid (severe) obesity due to excess calories; D50.9 Iron deficiency anemia, unspecified; Z79.01 Long term (current) use of anticoagulants; Z79.899 Other long term (current) drug therapy; Z95.1 Presence of aortocoronary bypass graft; Z87.891 Personal history of nicotine dependence

== ENCOUNTER → 2017-06-20 | Outpatient (CLI) | payer OTHER ==
[~2017-06-20] MED LIST changes: +ACET-24 PO; -ACETAMINOPHEN 500 MG TAB PO SCH; -BUPIVACAINE 0.5 % 5 MG/1 ML PF 10ML VIAL ONE; -CEFAZOLIN 3000 MG/65 ML D5W 65 ML IV SCH; -CRDCD120 PO; +DILT120C50 PO; -FAMOTIDINE 20 MG TAB PO SCH; -GABAPENTIN 300 MG CAP PO SCH; -LACTATED RINGER'S 1000ML 1,000 ML IV SCH; -LACTATED RINGER'S 1000ML IV SCH; +METO100T44 PO; -METO1TAB69 PO; -METOCLOPRAMIDE HCL 10 MG TAB PO SCH; +RXC5 PO; -SCOPOLAMINE 1.5 MG TDSY TD SCH
[2017-06-20 17:39] LABS: URINE APPEARANCE TURBID (CLEAR); URINE COLOR DK YELLOW; URINE EPITHELIAL CELL AUTO >30 /lpf (0-5); URINE NITRITE NEG (NEG); URINE SPECIFIC GRAVITY 1.033 (1.000-1.030); UROBILINOGEN NEG (NEG)
[2017-06-20 17:55] LABS: MANUAL MICROSCOPIC REQUIRED? NO; REVIEW REQ? YES; URINE BILIRUBIN NEG (NEG)
[2017-06-20 18:03] LABS: URINE MUCUS PRESENT (NONE PRSENT)
== END | disposition home or self-care (01) ==
LOC: C.LABBFT 13:20
PROVIDERS: ATTEND Internal Medicine
DX: R39.15 Urgency of urination (principal)

== ENCOUNTER → 2017-08-01 | Outpatient (CLI) | payer OTHER ==
[~2017-08-01] MED LIST changes: +DILT-202 PO; -DILT120C50 PO
[2017-08-01 13:09] LABS: ESTIMATED AVERAGE GLUCOSE 160 mg/dl; HA1C FLAG Normal (Normal)
== END | disposition home or self-care (01) ==
LOC: C.LABBFT 09:31
PROVIDERS: ATTEND Nurse Practitioner Family
DX: E10.9 Type 1 diabetes mellitus without complications (principal)

== ENCOUNTER → 2017-09-10 | Outpatient (CLI) | payer OTHER ==
--- NOTE | 2017-09-10 11:59 | DIAGNOSTIC IMAGING REPORT ---
CAROTID DOPPLER NECK ART CLINICAL HISTORY: 72 years-old Female presenting with I25.10 CAD (coronary artery disease)I65.29 Carotid artery plaque. TECHNIQUE: Real-time grayscale and color and spectral Doppler ultrasound imaging of the bilateral carotid arteries was performed. NASCET criteria was used in evaluating this study. COMPARISON: 08/30/2016. FINDINGS: Right: Common carotid: Patent. Peak systolic velocity 76 cm/s. Internal carotid artery: Patent. Peak systolic velocity 87 cm/s. Systolic ratio: 1.1. External carotid artery: Patent. Peak systolic velocity 76 cm/s. Left: Common carotid: Atherosclerosis. Peak systolic velocity 97 cm/s. Internal carotid artery: Atherosclerosis of the proximal ICA. Peak systolic velocity 66 cm/s. Systolic ratio: 0.7. External carotid artery: Patent. Peak systolic velocity 46 cm/s. Bilateral antegrade flow within the vertebral arteries. Reference ranges: Stenosis measurements are compared to reference velocity parameters. ICA peak systolic velocity (PSV) < 125 cm/s normal or indicating < 50% stenosis; ICA PSV 125-230 cm/s equivalent to 50-69% stenosis; ICA PSV > 230 cm/s equivalent to greater than or equal to 70% stenosis. ICA PSV to common carotid artery PSV ratio < 2 normal or < 50% stenosis; 2-4 equates to 50-69% stenosis, > 4 equates to greater than or equal to 70% stenosis. Normal ICA end-diastolic velocity less than 40. Blood pressure Brachial: Right: 160/110 mmHg, Left: 165/110 mmHg. IMPRESSION: 1. No hemodynamically significant stenosis seen within the carotid arteries. 2. Hypertension. Electronically signed by: Milton Galvin M.D. 09/10/2017 11:57 AM Dictated Date/Time: 09/10/2017 11:56 AM
== END | disposition home or self-care (01) ==
LOC: C.ULTR 10:30
PROVIDERS: ATTEND Surgery
DX: I25.10 Atherosclerotic heart disease of native coronary artery without angina pectoris (principal); I65.29 Occlusion and stenosis of unspecified carotid artery; I10 Essential (primary) hypertension

== ENCOUNTER → 2017-10-12 | Outpatient (CLI) | payer OTHER ==
[~2017-10-12] MED LIST changes: +RANI150T85 PO; -ZNTT/150 PO
== END | disposition home or self-care (01) ==
LOC: C.LABSPEC 10:11
PROVIDERS: ATTEND Internal Medicine
DX: N39.0 Urinary tract infection, site not specified (principal)

== ENCOUNTER → 2018-03-15 | Outpatient (CLI) | payer OTHER ==
[~2018-03-15] MED LIST changes: -ASPEC81 PO; +ASPI-320 PO
== END | disposition home or self-care (01) ==
LOC: C.LABSPEC 15:18
PROVIDERS: ATTEND Urology
DX: R31.29 Other microscopic hematuria (principal)

== ENCOUNTER → 2018-03-29 | Outpatient (CLI) | payer OTHER ==
[2018-03-29 13:18] LABS: ALBUMIN 3.6 gm/dl (3.4-5.0); ALKALINE PHOSPHATASE 120 U/L (45-117); ALT/SGPT 28 U/L (12-78); AST/SGOT 25 U/L (15-37); BLOOD UREA NITROGEN 14 mg/dl (7-18); CALCIUM 9.4 mg/dl (8.5-10.1); CARBON DIOXIDE 31 mmol/L (21-32); CREATININE 0.79 mg/dl (0.60-1.20); GLUCOSE 135 mg/dl (70-99); POTASSIUM 4.3 mmol/L (3.5-5.1); SODIUM 139 mmol/L (136-145); TOTAL PROTEIN 7.9 gm/dl (6.4-8.2)
== END | disposition home or self-care (01) ==
LOC: C.LAB 11:22
PROVIDERS: ATTEND Urology
DX: R31.29 Other microscopic hematuria (principal)

== ENCOUNTER → 2018-04-03 | Outpatient (CLI) | payer OTHER ==
[~2018-04-03] MED LIST changes: +OPTIRAY 320 IV PRN
--- NOTE | 2018-04-03 13:01 | DIAGNOSTIC IMAGING REPORT ---
CT ABD/PELVIS COMBO CLINICAL HISTORY: R31.29 Hematuria, [id number] COMPARISON STUDY: March 2007 TECHNIQUE: Unenhanced images were obtained to the abdomen and pelvis. The patient was injected with 50 cc of Optiray 320. Following a 5 minute delay, the patient was then scanned in a dynamic helical fashion during the additional administration of 68 cc of Optiray 320. A dose lowering technique was utilized adhering to the principles of ALARA. CT DOSE: 2166.12 mGycm FINDINGS: Lower chest: There are mild dependent atelectatic changes. Liver: The contrast-enhanced liver is normal in size, contour, and attenuation. There is no intrahepatic biliary ductal dilatation. The hepatic veins and portal veins are patent. Gallbladder: Cholelithiasis Spleen: Normal in size and attenuation. Pancreas: Unremarkable. Adrenal glands: Unremarkable. Kidneys: No renal, ureteral, or bladder calculi are visualized. There are no solid renal masses. No collecting system or ureteral lesions are visualized. Bowel: There are no transition zones indicate bowel obstruction. There is no acute diverticulitis. There are no findings to indicate acute appendicitis. Peritoneum: There is no intraperitoneal free air or abdominal ascites. Vasculature: The abdominal aorta is normal in course and caliber. Adenopathy: None. Pelvic viscera: The bladder, and pelvic viscera are unremarkable. Skeletal structures: No destructive osseous lesions are seen. There is a total right hip arthroplasty. IMPRESSION: 1. No renal, ureteral, or bladder calculi identified 2. No uroepithelial lesions are visualized 3. No evidence of pathologic adenopathy Electronically signed by: Gino Calle M.D. 04/03/2018 1:00 PM Dictated Date/Time: 04/03/2018 12:53 PM
== END | disposition home or self-care (01) ==
LOC: C.CTS 12:09
PROVIDERS: ATTEND Urology
DX: R31.29 Other microscopic hematuria (principal)

== ENCOUNTER → 2018-04-08 | Outpatient (CLI) | payer OTHER ==
[~2018-04-08] MED LIST changes: -OPTIRAY 320 IV PRN
== END | disposition home or self-care (01) ==
LOC: C.PATHSPEC 17:08
PROVIDERS: ATTEND Urology
DX: R31.29 Other microscopic hematuria (principal)